=== PATIENT | female | born 1965 | race Caucasian/White ===

== ENCOUNTER 2021-09-19 15:05 | Inpatient (IN) | payer BC ==
[~2021-09-19] VITALS: Ht 162.6 cm; Wt 62.0 kg
--- NOTE | 2021-09-19 15:09 | PHYS DOC ---
Past Medical History Past Medical History: Hypertension Past Surgical History: Tubal ligation Smoking Status: Current Every Day Smoker Alcohol Use: Heavy Drug Use: Amphetamine, Methamphetamine General Adult EDM: Chief Complaint: ABDOMINAL PAIN HPI: HPI: Patient is a 56 year old female presents with 5-week history of progressively worsening generalized upper abdominal pain and right upper quadrant pain. She has noticed her skin has been itchy for the past several weeks. She reports multiple episodes of nausea and vomiting. Pain is frequently postprandial, t ollie she has not been eating or drinking very much. She denies constipation or diarrhea. She has noticed that her urine is dark. The patient is quite jaundiced, demonstrate scleral icterus, she reports that she had not really noticed this. She does report that the pain radiates through to her back. She denies fevers or chills. She does report that the pain occasionally radiates up into her chest. She denies dyspnea or cough. Denies hemoptysis. She reportedly was seen by nurse practitioner at an outpatient clinic earlier this week, she had outpatient labs done, she does not know the results of these. She has not been referred for any imaging studies. Patient has a history of frequent alcohol consumption, though she has not had alcohol in over a week. She denies history of withdrawal alcohol withdrawal seizures. She also admits to ingesting methamphetamine rocks. She last used yesterday. Review of Systems: Review of Systems: As per HPI Heart Score: C/O Chest Pain: Yes HEART Score for Chest Pain: HEART Score for Chest Pain Response (Comments) Value History Slighlty/Non-Suspicious 0 ECG Nonspecific Repolarizatio 1 Age >45 - < 65 1 Risk Factors 1 or 2 Risk Factors 1 Troponin < Normal Limit 0 Total 3 Risk Factors: Risk Factors: DM, Current or recent (<one month) smoker, HTN, HLP, family history of CAD, obesity. Risk Scores: Score 0 - 3: 2.5% MACE over next 6 weeks - Discharge Home Score 4 - 6: 20.3% MACE over next 6 weeks - Admit for Clinical Observation Score 7 - 10: 72.7% MACE over next 6 weeks - Early Invasive Strategies Physical Exam: PE: Constitutional: She appears uncomfortable, anxious, very disheveled, appears much older than stated age, writhing around the ED gurney, intermittently yelling, does appear to be manifesting sympathomimetic intoxication. Nontoxic. She does appear to be at least moderately ill-appearing. HENT: Normocephalic, atraumatic, oropharynx is patent and clear, mucous membranes are tacky. Eyes: Scleral icterus is noted. Mild conjunctival pallor. Neck: Trachea is midline. No meningismus. No JVD Cardiovascular: Tachycardic, regular, +2 radial and +2 posterior tibial pulses bilaterally. No edema. Lungs & Thorax: Clear to auscultation bilateral without rales, rhonchi or wheezes. Abdomen: Abdomen is obese, soft, exquisitely tender to palpation the right upper quadrant and epigastrium, positive Brambila's. Voluntary guarding in the epigastric and periumbilical area. No rigidity. No lower abdominal tenderness. No palpable pulsatile mass. No CVA tenderness. No flank abdominal ecchymoses. Skin: Warm, dry, unkempt. Diffuse jaundice noted. Back: No tenderness, no CVA tenderness. [] Extremities: No tenderness, no cyanosis, no clubbing, ROM intact, no limb deformity, no calf tenderness Neurologic: Alert and oriented X 3, normal motor function, normal sensory function, no focal deficits noted. [] Psychologic: Anxious, frenetic, histrionic, relatively agitated, appears intoxicated, easily redirectable, she is pleasant EKG: EKG: EKG is interpreted at 1521 Rhythm is sinus tachycardia Rate is 121 bpm Lynx is normal No STEMI Radiology/Procedures: Radiology/Procedures: IMAGING REPORT Signed PATIENT: CALISTA PINTO ACCOUNT: [id number] : 1965 LOCATION: ER AGE: 56 SEX: F EXAM STATUS: REG ER ORD. PHYSICIAN: LILIAN LOGAN DO REASON: RUQ abd pain PROCEDURE: ABDOMEN LTD EXAM: ULTRASOUND ABDOMEN LIMITED CLINICAL HISTORY: Right upper quadrant abdominal pain COMPARISON: None available. TECHNIQUE: Limited ultrasound examination of the right upper quadrant of the abdomen was performed. FINDINGS: The liver length measures 17.7 cm. There is prominent appearing intrahepatic bile duct and extra hepatic bile ducts. The common bile duct measures 2 cm in transverse dimension. There is echogenicity identified within the gallbladder likely sludge or gallstones. Ultrasonographic evidence of Brambila's sign identified. The right kidney measures 10.6 x 4.9 x 4.6 cm. The aorta, IVC are not well-visualized due to bowel gas. Minimal prominent pancreatic duct. IMPRESSION: 1. Dilated common bile duct measuring 2 cm. Distal common bile duct obstruction is not excluded. 2. Echogenicity identified within the gallbladder likely gallstones. Examination is positive for ultrasonographic evidence of Brambila's sign. Correlate for cholecystitis. Electronically signed by: Benjamin Daugherty MD (09/19/2021 4:29 PM) [id number] DICTATED and SIGNED BY: BENJAMIN DAUGHERTY MD DATE: 09/19/21 1626 IMAGING REPORT Signed PATIENT: CALISTA PINTO ACCOUNT: [id number] : 1965 LOCATION: ER AGE: 56 SEX: F EXAM STATUS: REG ER ORD. PHYSICIAN: LILIAN LOGAN DO REASON: chest pain PROCEDURE: PORTABLE CHEST 1V Single AP view of the chest. Comparison: None. Indication: Chest pain Findings: The heart is not enlarged. There is no pneumothorax or effusion. No air space or interstitial disease. Impression: 1. No acute cardiopulmonary process. Electronically signed by: Trevin Munoz MD (09/19/2021 3:52 PM) [facility] DICTATED and SIGNED BY: TREVIN MUNOZ MD DATE: 09/19/21 1552 IMAGING REPORT Signed PATIENT: CALISTA PINTO ACCOUNT: [id number] : 1965 LOCATION: ER AGE: 56 SEX: F EXAM STATUS: REG ER ORD. PHYSICIAN: LILIAN LOGAN DO REASON: abd pain, concern for choledocholithiasis PROCEDURE: CT ABD PELV W/ IV CONTRST ONLY Examination: CT of the abdomen pelvis with IV contrast HISTORY: History of choledocholithiasis COMPARISON: None available Technique: Axial CT images of the abdomen pelvis were performed with IV contrast. Coronal and sagittal reformats are performed. Exposure: One or more of the following individualized dose reduction techniques were utilized for this examination: 1. Automated exposure control 2. Adjustment of the mA and/or kV according to patient size 3. Use of iterative reconstruction technique. FINDINGS: Minimal bibasilar lung atelectasis. No evidence of free air identified in the abdomen. Dilated appearing intrahepatic bile ducts. The common bile duct is dilated measuring 2 cm in transverse dimension. There is possible opacity in the distal common bile duct could be choledocholithiasis or mass. The gallbladder is mildly distended. Gallstones identified in the proximal gallbladder. The spleen, adrenals grossly appears unremarkable. The stomach is mildly distended. The small bowel is nondilated. Feces and gas noted in the colon. The evaluation of the colon is limited due to motion artifact. Urinary bladder is mildly distended Bilateral kidneys enhance symmetrically. Moderate degenerative changes lumbar spine. IMPRESSION: 1. Dilated appearing intrahepatic bile ducts and common bile duct with possible opacity in the distal common bile duct could be choledocholithiasis or mass. Recommend ERCP or MRCP. 2. Cholelithiasis. Electronically signed by: Benjamin Daugherty MD (09/19/2021 5:47 PM) [id number] DICTATED and SIGNED BY: BENJAMIN DAUGHETRY MD DATE: 09/19/211739 Course & Med Decision Making: Course & Med Decision Making Pertinent Labs and Imaging studies reviewed. (See chart for details) Patient is given IV fluids, IV Ativan, IV Zofran, IV fentanyl, IV morphine. IV Zosyn empirically given for treatment of cholecystitis. She is kept n.p.o. I have discussed the findings, differential diagnosis and plan of care with the patient. She does appear to be resting slightly more comfortably. I have recommended hospitalization, she required GI consultation, general surgery consultation. She is accepted for admission by Dr. Miller. Braxton Disclaimer: Braxton Disclaimer: This electronic medical record was generated, in whole or in part, using a voice recognition dictation system. Departure Departure Impression: Primary Impression: Choledocholithiasis Additional Impressions: Obstructive jaundice Hyperbilirubinemia Transaminitis Cholecystitis, acute with cholelithiasis Qualified Codes: K80.01 - Calculus of gallbladder with acute cholecystitis with obstruction Disposition: ADMITTED INPATIENT Admitting Physician: [facility] (Dr. iMller) Condition: GUARDED DESMOND,LILIAN Hassan DO Sep 19, 2021 15:09
[2021-09-19] MEDS ORDERED: IV NORMAL SALINE 1000ML BAG 1,000 ML IV ONE ×3 (15:30→18:15)
[2021-09-19] MEDS ORDERED: ONDANSETRON PF 4 MG/2 ML VIAL. IVP ONE (15:30)
[2021-09-19] MEDS ORDERED: fentaNYL PF VIAL 100 MCG/2 ML VIAL IVP ONE (15:30)
[2021-09-19 15:53] LABS: BACTERIA,URINE 0 /HPF (0-FEW)
[2021-09-19 15:54] LABS: AMORPHOUS SEDIMENT,UR PRESENT /HPF
--- NOTE | 2021-09-19 15:55 | RAD ---
Single AP view of the chest. Comparison: None. Indication: Chest pain Findings: The heart is not enlarged. There is no pneumothorax or effusion. No air space or interstitial diseas e. Impression: 1. No acute cardiopulmonary process. Electronically signed by: Trevin Munoz MD (09/19/2021 3:52 PM) [facility]
[2021-09-19 15:59] LABS: BASO % 0 % (0-3); EOS % 0 % (0-3); HEMATOCRIT 34.9 % (36.0-47.0); HEMOGLOBIN 11.8 g/dL (12.0-15.5); LYMPH # 0.7 x10^3/uL (1.0-4.8); LYMPH % 6 % (24-48); MEAN CORPUSCULAR HEMOGLOBIN 28 pg (25-35); MEAN CORPUSCULAR HGB CONC 34 g/dL (31-37); MEAN CORPUSCULAR VOLUME 82 fL (79-100); MONO # 0.2 x10^3/uL (0.0-1.1); MONO % 2 % (0-9); NEUT # 9.7 x10^3/uL (1.8-7.7); NEUT % 91 % (31-73); PLATELET COUNT 350 x10^3/uL (140-400); RED BLOOD COUNT 4.28 x10^6/uL (3.50-5.40); RED CELL DISTRIBUTION WIDTH 14.3 % (11.5-14.5); WHITE BLOOD COUNT 10.6 x10^3/uL (4.0-11.0)
[2021-09-19 16:10] LABS: PROTHROMBIN TIME PATIENT 13.1 SEC (11.7-14.0)
[2021-09-19 16:18] LABS: BARBITURATES NEG (NEG); BENZODIAZEPINES NEG (NEG); CANNABINOIDS NEG (NEG); COCAINE NEG (NEG); METHADONE NEG (NEG); OPIATES NEG (NEG); PHENCYCLIDINE NEG (NEG)
[2021-09-19 16:21] LABS: ALBUMIN 3.1 g/dL (3.4-5.0); ALBUMIN/GLOBULIN RATIO 0.9 (1.0-1.7); CALCIUM 9.5 mg/dL (8.5-10.1); CREATININE 0.5 mg/dL (0.6-1.0); GFR 127.6; MAGNESIUM 1.4 mg/dL (1.8-2.4); TOTAL PROTEIN 6.7 g/dL (6.4-8.2)
[2021-09-19 16:22] LABS: AMPHETAMINE/METHAMPHETAMINE POS (NEG)
[2021-09-19 16:27] LABS: POTASSIUM 2.4 mmol/L (3.5-5.1)
--- NOTE | 2021-09-19 16:32 | RAD ---
EXAM: ULTRASOUND ABDOMEN LIMITED CLINICAL HISTORY: Right upper quadrant abdominal pain COMPARISON: None available. TECHNIQUE: Limited ultrasound examination of the right upper quadrant of the abdomen was performed. FINDINGS: The liver length measures 17.7 cm. There is prominent appearing intrahepatic bile duct and extra hepa tic bile ducts. The common bile duct measures 2 cm in transverse dimension. There is echogenicity brooke ntified within the gallbladder likely sludge or gallstones. Ultrasonographic evidence of Brambila's sig n identified. The right kidney measures 10.6 x 4.9 x 4.6 cm. The aorta, IVC are not well-visualized d ue to bowel gas. Minimal prominent pancreatic duct. IMPRESSION: 1. Dilated common bile duct measuring 2 cm. Distal common bile duct obstruction is not excluded. 2. Echogenicity identified within the gallbladder likely gallstones. Examination is positive for ultr asonographic evidence of Brambila's sign. Correlate for cholecystitis. Electronically signed by: Benjamin Daugherty MD (09/19/2021 4:29 PM) [id number]
[2021-09-19] MEDS ORDERED: IOHEXOL 300 MG/ML 100ML VIAL. IV ONE (17:15)
[2021-09-19] MEDS ORDERED: PIPERACILLIN/TAZOBACTAM 3.375 GM in IV NORMAL SALINE 50ML 50 ML IV ONE (17:15)
[2021-09-19] MEDS ORDERED: POTASSIUM CHLORIDE 20 MEQ TABLET.ER. PO ONE (17:15)
[2021-09-19] MEDS ORDERED: MORPHINE SULFATE 4 MG/ML INJ. IVP ONE (17:15)
[2021-09-19] MEDS ORDERED: POTASSIUM CHLORIDE 20MEQ 100 ML IV ONE (17:30)
--- NOTE | 2021-09-19 17:49 | RAD ---
Examination: CT of the abdomen pelvis with IV contrast HISTORY: History of choledocholithiasis COMPARISON: None available Technique: Axial CT images of the abdomen pelvis were performed with IV contrast. Coronal and sagitta l reformats are performed. Exposure: One or more of the following individualized dose reduction techniques were utilized for thi s examination: 1. Automated exposure control 2. Adjustment of the mA and/or kV according to patient size 3. Use of iterative reconstruction technique. FINDINGS: Minimal bibasilar lung atelectasis. No evidence of free air identified in the abdomen. Dilated appear ing intrahepatic bile ducts. The common bile duct is dilated measuring 2 cm in transverse dimension. There is possible opacity in the distal common bile duct could be choledocholithiasis or mass. The ga llbladder is mildly distended. Gallstones identified in the proximal gallbladder. The spleen, adrenals grossly appears unremarkable. The stomach is mildly distended. The small bowel i s nondilated. Feces and gas noted in the colon. The evaluation of the colon is limited due to motion artifact. Urinary bladder is mildly distended Bilateral kidneys enhance symmetrically. Moderate degenerative changes lumbar spine. IMPRESSION: 1. Dilated appearing intrahepatic bile ducts and common bile duct with possible opacity in the dista l common bile duct could be choledocholithiasis or mass. Recommend ERCP or MRCP. 2. Cholelithiasis. Electronically signed by: Benjamin Daugherty MD (09/19/2021 5:47 PM) [id number]
[2021-09-19] MEDS: MULTIVIT INFUSN,ADULT 4,VIT K 10 ML, THIAMINE INJ 100 MG, FOLIC ACID INJ 1 MG in IV NOR... IV SCH (18:00)
[2021-09-19 19:00] VITALS: BP 83/61
--- NOTE | 2021-09-19 19:00 | NUR ---
The patient, CALISTA PINTO, 56 y/o, F admitted by VINCE BANUELOS MD, was given written information regarding hospital policies, unit procedures and contact persons. COMPLETED HISTORY AND ASSESMENT. PT COULDNT KEEP FOCUSED. FLAINING ALL OVER THE BED ARMS AND LEGS. ATTEMPTING TO GET POYASSIUM IV COMPLETE. CHANGED HER IV BY MATT #[id number] . PT CONTINUES TO FRAIL AROUND, HER PATCHES COME OFF, LEADS IV COME OFF. AND IV IN THE AC BEEPS CONTINUES TO BEEP. Valuables were checked and AND DOCUMENTED IN THE EMR. SHE CONTIUES TO C/O PAIN IN HER UPPER ABDOMEN AND SHE IS ALL OVER THE BED. LCRN.
[2021-09-19] MEDS ORDERED: OMEP40CA7 PO (20:10)
[2021-09-19] MEDS ORDERED: ACET500T68 PO (20:11)
[2021-09-19] MEDS ORDERED: IBUP-1060 PO (20:12)
[2021-09-19] MEDS ORDERED: MORPHINE SULFATE 2 MG/ML INJ. IV PRN ×2 (20:30)
[2021-09-19] MEDS ORDERED: ACETAMINOPHEN 325 MG TABLET. PO PRN (20:30)
[2021-09-19] MEDS ORDERED: ELECTROLYTE (NON-ICU) PROTOCOL. MC PRN (20:30)
[2021-09-19] MEDS ORDERED: CALCIUM CARBONATE 500 MG TAB.CHEW PO PRN (20:30)
[2021-09-19] MEDS ORDERED: ONDANSETRON PF 4 MG/2 ML VIAL. IVP PRN (20:30)
[2021-09-19] MEDS: SENNOSIDES/DOCUSATE 8.6/50MG TABLET. PO SCH (21:00)
[2021-09-19 23:00] VITALS: BP 117/52
[2021-09-19] MEDS: HEPARIN for SUB-Q USE 5,000 UNIT/ML VIAL. SQ SCH (23:23)
--- NOTE | 2021-09-19 23:29 | RAD ---
XR CHEST 1V 09/19/2021 11:14 PM INDICATION: Low oxygen saturation COMPARISON: 09/19/2021 TECHNIQUE: Portable frontal view of the chest is provided. FINDINGS: The cardiomediastinal silhouette is within normal limits. Mild interstitial changes appear progressed . There are no significant pleural effusions. There is no pulmonary vascular congestion. No pneumothora x. No suspicious osseous abnormality. IMPRESSION: Mild interstitial changes appear progressed as may be seen with worsening interstitial pneumonitis. L imited evaluation of the left costophrenic angle. Electronically signed by: Alisha Boston MD (09/19/2021 11:27 PM) [facility]
[2021-09-20] VITALS (31 sets, daily range): BP systolic 68–194; BP diastolic 41–92
[2021-09-20 00:26] LABS: BASE EXCESS ABG -12 mmol/L (-3-3); HCO3 ABG 20 mmol/L (21-28); PO2 ABG 128 mmHg (75-108); SAT O2 ABG 96 % (92-99)
[2021-09-20 00:32] LABS: PCO2 ABG 78 mmHg (35-46)
[2021-09-20 00:33] LABS: FIO2 ABG 50 (BIPAP)
--- NOTE | 2021-09-20 01:00 | NUR ---
s/p code- transfer from [address] [place] [address]. resp distress- patient intubated upon arrival to ICU. per [address] [place] [address] nurse- she will complete admission and she spoke with family
--- NOTE | 2021-09-20 01:00 | NUR ---
TRANSFERED PT TO ICU AFTER CALLING DR ARDON HER ABG.S. WERE NOT GOOD, SEE LABS. DR ARDON WAS GIVING ORDERS FOR THE BIPAP AND SETTINGS. PT WAS BEING PLACED ON BIPAP WAS ATTEMPTING TO PULL AND SWING KEPT PULLING OFF ONE OF HER MITTS AND THE HOSE ON THE BIPAP. PT C/O HER SKIN ITCHING. TOOK SEVERAL STAFF MEMBERS TO HOLD HER DOWN. 2017 MORPHINE IV WAS GIVEN FOR HER PAIN IN HER STOMACH. THEN GAVE PO ATIVAN PRIOR TO BIPAP FOR HER BEING SO OUT OF CONTROL. HER HEART RATE STAARTED TO GO HIGHER 120-160"S THEN . HER BREATHING BEGAN TO LOOK EXERTED. USING WHOLE CHEST TO BREATHE IN AND ABD MUSCLES TO BREATHE OUT. WHILE RN WAS CALLING HER DR TO TRANSFER TO ICU STARTING TO COME OUT OF THE ROOM W THE BED WHEN SHE WENT ASYSTOLE AND BREATHING STOPPED. RT MIGDALIA BEGAN BAGGING HER AND NOT EVEN A ROUND OF COMPRESSIONS DONE WHEN SHE REGAINED HER PULSE. I WAS ON THE PHONE TALKING TO HER SOLEDAD BRINGING HIM UP TO DATE WHEN THE CODE WAS CALLED ON PT. TOLD THE SHE WAS GETTING WORSE AND IT IS OK TO COME TO THE HOSPITAL. ONCE SHE HAD A HR THEN SHE WAS TRANSFERED TO ROOM 109. AND DR THERE TO INTUBATE HER. LCRN
[2021-09-20] MEDS ORDERED: ELECTROLYTE (ICU) PROTOCOL. MC PRN (01:15)
[2021-09-20] MEDS ORDERED: SUCCINYLCHOLINE 200 MG/10 ML VIAL. ONE (01:20)
[2021-09-20] MEDS ORDERED: ETOMIDATE 20 MG/10 ML VIAL. IV ONE (01:20)
[2021-09-20] MEDS ORDERED: VECURONIUM BOLUS 10 MG VIAL. IV PRN (01:30)
[2021-09-20] MEDS: PROPOFOL 100 ML IV PRN (01:42)
[2021-09-20 02:21] LABS: BASE EXCESS ABG -9 mmol/L (-3-3); HCO3 ABG 17 mmol/L (21-28); PCO2 ABG 37 mmHg (35-46); PO2 ABG 84 mmHg (75-108); SAT O2 ABG 95 % (92-99)
[2021-09-20 02:27] LABS: HEMATOCRIT 36.9 % (36.0-47.0); HEMOGLOBIN 11.6 g/dL (12.0-15.5); RED BLOOD COUNT 4.21 x10^6/uL (3.50-5.40); RED CELL DISTRIBUTION WIDTH 15.5 % (11.5-14.5); WHITE BLOOD COUNT 25.3 x10^3/uL (4.0-11.0)
--- NOTE | 2021-09-20 02:30 | RAD ---
EXAMINATION: XR CHEST 1V CLINICAL HISTORY: Post intubation; et/ng placement. TECHNIQUE: XR CHEST 1V COMPARISON: 09/19/2021 FINDINGS/ IMPRESSION: Interval intubation with the endotracheal tube terminating approximately 3.6 cm above the barb and placement of enteric tube extending into the stomach with tip beyond the limit of the image. Improved aeration of the bilateral lungs with mild residual patchy airspace disease in the right lowe r lung zone. No evidence of pleural effusion or pneumothorax. Stable heart size. Electronically signed by: Richard Bonilla DO (09/20/2021 2:28 AM) [facility]
[2021-09-20 03:22] LABS: FIO2 ABG 55
[2021-09-20] MEDS ORDERED: FLU VACC QUAD 21-22 (6MOS+) PF 0.5 ML SYRINGE. VAX IM ONE (03:45)
[2021-09-20] MEDS: HEPARIN for SUB-Q USE 5,000 UNIT/ML VIAL. SQ SCH ×3 (05:43→21:58)
[2021-09-20 07:40] LABS: BASE EXCESS ABG -7 mmol/L (-3-3); HCO3 ABG 18 mmol/L (21-28); PCO2 ABG 34 mmHg (35-46); PO2 ABG 196 mmHg (75-108); SAT O2 ABG 99 % (92-99)
[2021-09-20] MEDS: NOREPINEPHRINE VIAL 8 MG in IV DEXTROSE 5% 250 ML IV PRN ×2 (07:40→19:42)
[2021-09-20] MEDS: MIDAZOLAM 100mg/100ml NS BAG 100 ML IV PRN ×2 (07:41→18:01)
[2021-09-20] MEDS ORDERED: PIP/TAZO PER PHARMACY MC PRN (08:30)
[2021-09-20] MEDS: SENNOSIDES/DOCUSATE 8.6/50MG TABLET. PO SCH ×2 (09:00→20:48)
--- NOTE | 2021-09-20 09:04 | PDOC2 ---
GI CONSULT Date of Service: DATE: 09/20/21 TIME: 08:51 Reason For Consult: dilated CBD, dilated intrahepatic ducts HPI: HPI: 56 y/o female admitted through ER. D/w nurse and reviewed other notes - pt reported upper abd pain radiating to back w/ n/v. S/p resp code (brief asystole mentioned), currently intubated and sedated in ICU on pressor. Impressive labs include WBC 25 (normal yesterday), bili 8, AST 138, ALT 157, Alk Phos 572, K 2.4, tox screen +amphetamines. On imaging: dilated CBD and intrahepatic ducts, possible opacity in distal CBD, suspected gallstones/sludge. Summary list includes omeprazole, Tylenol, ibuprofen. Hospitalist present, just had brief run of v tach, plans to start antibiotics, ask for cardiology opinion. PMH: PMH: per chart: HTN, OA tubal ligation, jaw surgery FH: Family History: Other (unable to obtain) Social History: ALCOHOL: other (per chart: rum every other day) Drugs: Crystal meth (tox screen +ampethamines) ROS: unable to obtain Vitals: Vitals: Vital Signs Date Time Temp Pulse Resp B/P (MAP) Pulse Ox O2 Delivery O2 Flow Rate FiO2 09/20/21 08:36 97 Ventilator 09/20/21 08:19 23 09/20/21 08:00 100 68/41 09/20/21 04:00 98.0 98.0 09/20/21 01:00 15.0 Labs: Labs: Laboratory Tests Test 09/19/21 15:16 09/19/21 15:43 09/19/21 23:44 09/20/21 00:55 Urine Collection Type Void Urine Color (Auto) Dark yellow Urine Turbidity Clear Urine pH (Auto) 6.0 (<5.0-8.0) Urine Specific [place] 1.028 (1.000-1.030) Urine Protein (Auto) 30 mg/dL (Negative) Urine Glucose (Auto)(UA) Negative mg/dL (Negative) Urine Ketones (Auto) 10 mg/dL (Negative) Urine Blood (Auto) Negative (Negative) Urine Nitrite Negative (Negative) Urine Bilirubin (Auto) Moderate (Negative) Urine Urobilinogen (Auto) 6 mg/dL (Normal) Urine Leukocyte Esterase (Auto) Negative (Negative) Urine RBC 3-5 /HPF (0-2) Urine WBC 1-4 /HPF (0-4) Urine Squamous Epithelial Cells Mod /LPF Urine Amorphous Sediment Present /HPF Urine Bacteria 0 /HPF (0-FEW) Urine Mucus Slight /LPF Urine Opiates Screen Neg (NEG) Urine Methadone Screen Neg (NEG) Urine Barbiturates Neg (NEG) Urine Phencyclidine Screen Neg (NEG) Urine Amphetamine/Methamphetamine Pos (NEG) Urine Benzodiazepines Screen Neg (NEG) Urine Cocaine Screen Neg (NEG) Urine Cannabinoids Screen Neg (NEG) Urine Ethyl Alcohol Neg (NEG) White Blood Count 10.6 x10^3/uL (4.0-11.0) 25.3 x10^3/uL (4.0-11.0) Red Blood Count 4.28 x10^6/uL (3.50-5.40) 4.21 x10^6/uL (3.50-5.40) Hemoglobin 11.8 g/dL (12.0-15.5) 11.6 g/dL (12.0-15.5) Hematocrit 34.9 % (36.0-47.0) 36.9 % (36.0-47.0) Mean Corpuscular Volume 82 fL (79-100) 88 fL (79-100) Mean Corpuscular Hemoglobin 28 pg (25-35) 28 pg (25-35) Mean Corpuscular Hemoglobin Concent 34 g/dL (31-37) 31 g/dL (31-37) Red Cell Distribution Width 14.3 % (11.5-14.5) 15.5 % (11.5-14.5) Platelet Count 350 x10^3/uL (140-400) 451 x10^3/uL (140-400) Neutrophils (%) (Auto) 91 % (31-73) Lymphocytes (%) (Auto) 6 % (24-48) Monocytes (%) (Auto) 2 % (0-9) Eosinophils (%) (Auto) 0 % (0-3) Basophils (%) (Auto) 0 % (0-3) Neutrophils # (Auto) 9.7 x10^3/uL (1.8-7.7) Lymphocytes # (Auto) 0.7 x10^3/uL (1.0-4.8) Monocytes # (Auto) 0.2 x10^3/uL (0.0-1.1) Eosinophils # (Auto) 0.0 x10^3/uL (0.0-0.7) Basophils # (Auto) 0.0 x10^3/uL (0.0-0.2) Prothrombin Time 13.1 SEC (11.7-14.0) Prothromb Time International Ratio 1.0 (0.8-1.1) Activated Partial Thromboplast Time 25 SEC (24-38) Sodium Level 139 mmol/L (136-145) Potassium Level 2.4 mmol/L (3.5-5.1) Chloride Level 103 mmol/L (98-107) Carbon Dioxide Level 20 mmol/L (21-32) Anion Gap 16 (6-14) Blood Urea Nitrogen 27 mg/dL (7-20) Creatinine 0.5 mg/dL (0.6-1.0) Estimated GFR (Cockcroft-Gault) 127.6 BUN/Creatinine Ratio 54 (6-20) Glucose Level 100 mg/dL (70-99) Calcium Level 9.5 mg/dL (8.5-10.1) Magnesium Level 1.4 mg/dL (1.8-2.4) Total Bilirubin 8.0 mg/dL (0.2-1.0) Aspartate Amino Transf (AST/SGOT) 138 U/L (15-37) Alanine Aminotransferase (ALT/SGPT) 157 U/L (14-59) Alkaline Phosphatase 572 U/L (46-116) Creatine Kinase 88 U/L (26-192) Troponin I High Sensitivity 16 ng/L (4-50) Total Protein 6.7 g/dL (6.4-8.2) Albumin 3.1 g/dL (3.4-5.0) Albumin/Globulin Ratio 0.9 (1.0-1.7) Lipase 142 U/L (73-393) Ethyl Alcohol Level < 10 mg/dL (0-10) O2 Saturation 96 % (92-99) Arterial Blood pH 7.03 (7.35-7.45) Arterial Blood pCO2 at Patient Temp 78 mmHg (35-46) Arterial Blood pO2 at Patient Temp 128 mmHg (75-108) Arterial Blood HCO3 20 mmol/L (21-28) Arterial Blood Base Excess -12 mmol/L (-3-3) FiO2 50 (bipap) Test 09/20/21 02:06 09/20/21 07:39 O2 Saturation 95 % (92-99) 99 % (92-99) Arterial Blood pH 7.28 (7.35-7.45) 7.35 (7.35-7.45) Arterial Blood pCO2 at Patient Temp 37 mmHg (35-46) 34 mmHg (35-46) Arterial Blood pO2 at Patient Temp 84 mmHg (75-108) 196 mmHg (75-108) Arterial Blood HCO3 17 mmol/L (21-28) 18 mmol/L (21-28) Arterial Blood Base Excess -9 mmol/L (-3-3) -7 mmol/L (-3-3) FiO2 55 55% vent Allergies: Coded Allergies: No Known Drug Allergies (Unverified , 09/19/21) Medications: Current Medications Medications (Trade) Dose Ordered Sig/Mitch Route PRN Reason Start Time Stop Time Status Last Admin Dose Admin Sodium Chloride 1,000 ml @ 1,000 mls/hr 1X ONCE IV 09/19/21 15:30 09/19/21 16:29 DC 09/19/21 15:49 Lorazepam (Ativan Inj) 1 mg 1X ONCE IVP 09/19/21 15:30 09/19/21 15:31 DC 09/19/21 15:48 Ondansetron HCl (Zofran) 4 mg 1X ONCE IVP 09/19/21 15:30 09/19/21 15:31 DC 09/19/21 15:47 Fentanyl Citrate (Fentanyl 2ml Vial) 50 mcg 1X ONCE IVP 09/19/21 15:30 09/19/21 15:31 DC 09/19/21 15:48 Potassium Chloride (Klor-Con) 40 meq 1X ONCE PO 09/19/21 17:15 09/19/21 17:16 DC 09/19/21 17:17 Iohexol (Omnipaque 300 Mg/ml) 75 ml 1X ONCE IV 09/19/21 17:15 09/19/21 17:16 DC 09/19/21 17:24 Piperacillin Sod/ Tazobactam Sod 3.375 gm/Sodium Chloride 50 ml @ 100 mls/hr 1X ONCE IV 09/19/21 17:15 09/19/21 17:44 DC 09/19/21 17:38 Morphine Sulfate (Morphine Sulfate) 4 mg 1X ONCE IVP 09/19/21 17:15 09/19/21 17:16 DC 09/19/21 17:37 Potassium Chloride/Water 100 ml @ 50 mls/hr 1X ONCE IV 09/19/21 17:30 09/19/21 19:29 DC 09/19/21 18:45 Sodium Chloride 1,000 ml @ 1,000 mls/hr 1X ONCE IV 09/19/21 17:45 09/19/21 18:44 DC 09/19/21 18:16 Multivitamins 10 ml/Thiamine HCl 100 mg/Folic Acid 1 mg/Sodium Chloride 1,011.2 ml @ 100 mls/ hr DAILY IV 09/19/21 18:00 09/23/21 19:07 09/19/21 18:00 Lorazepam (Ativan) 4 mg PRN Q1HR PRN PO For CIWA 8-14 09/19/21 17:45 09/19/21 20:17 Sodium Chloride 1,000 ml @ 1,000 mls/hr 1X ONCE IV 09/19/21 18:15 09/19/21 19:14 DC 09/19/21 18:15 Morphine Sulfate (Morphine Sulfate) 2 mg PRN Q1HR PRN IV PAIN 09/19/21 20:30 09/19/21 20:15 Heparin Sodium (Porcine) (Heparin Sodium) 5,000 unit Q8HRS SQ 09/19/21 22:00 09/20/21 05:43 Fentanyl Citrate 30 ml @ 2.5 mls/hr CONT PRN IV SEE PROTOCOL 09/20/21 01:30 09/20/21 07:36 Propofol 100 ml @ 1.95 mls/hr CONT PRN IV PER PROTOCOL 09/20/21 01:30 09/20/21 01:42 Midazolam HCl 100 ml @ 1 mls/hr CONT PRN IV SEE PROTOCOL 09/20/21 07:30 09/20/21 07:41 Norepinephrine Bitartrate 8 mg/ Dextrose 258 ml @ 12.578 mls/ hr CONT PRN IV PER PROTOCOL 09/20/21 07:30 09/20/21 07:40 Imaging: Imaging: CXR Impression: 1. No acute cardiopulmonary process. RUQ US FINDINGS: The liver length measures 17.7 cm. There is prominent appearing intrahepatic bile duct and extra hepatic bile ducts. The common bile duct measures 2 cm in transverse dimension. There is echogenicity identified within the gallbladder likely sludge or gallstones. Ultrasonographic evidence of Brambila's sign identified. The right kidney measures 10.6 x 4.9 x 4.6 cm. The aorta, IVC are not well-visualized due to bowel gas. Minimal prominent pancreatic duct. IMPRESSION: 1. Dilated common bile duct measuring 2 cm. Distal common bile duct obstruction is not excluded. 2. Echogenicity identified within the gallbladder likely gallstones. Examination is positive for ultrasonographic evidence of Brambila's sign. Correlate for cholecystitis. CT A/P FINDINGS: Minimal bibasilar lung atelectasis. No evidence of free air identified in the abdomen. Dilated appearing intrahepatic bile ducts. The common bile duct is dilated measuring 2 cm in transverse dimension. There is possible opacity in the distal common bile duct could be choledocholithiasis or mass. The gallbladder is mildly distended. Gallstones identified in the proximal gallbladder. The spleen, adrenals grossly appears unremarkable. The stomach is mildly distended. The small bowel is nondilated. Feces and gas noted in the colon. The evaluation of the colon is limited due to motion artifact. Urinary bladder is mildly distended Bilateral kidneys enhance symmetrically. Moderate degenerative changes lumbar spine. IMPRESSION: 1. Dilated appearing intrahepatic bile ducts and common bile duct with possible opacity in the distal common bile duct could be choledocholithiasis or mass. Recommend ERCP or MRCP. 2. Cholelithiasis. CXR IMPRESSION: Mild interstitial changes appear progressed as may be seen with worsening interstitial pneumonitis. Limited evaluation of the left costophrenic angle. CXR IMPRESSION: Interval intubation with the endotracheal tube terminating approximately 3.6 cm above the barb and placement of enteric tube extending into the stomach with tip beyond the limit of the image. Improved aeration of the bilateral lungs with mild residual patchy airspace disease in the right lower lung zone. No evidence of pleural effusion or pn eumothorax. Stable heart size. PE: GEN: intubated HEENT: Atraumatic LUNGS: clear/vent HEART: tachycardic ABD: quiet, soft, OG bilious EXTREMITY: No edema SKIN: +jaundice NEURO/PSYCH: sedated A/P: A/P: Abd pain, n/v S/p code/resp failure Leukocytosis, hypokalemia, elevated LFTs Abnormal imaging: dilated CBD (2cm), dilated intrahepatic ducts, possible stone/mass in distal CBD, cholelithiasis Some alcohol history, +meth -- Obstructive jaundice, concern for choledocholithiasis. Currently unstable in ICU. Follow labs, continue support. May need to consider MRCP/ERCP, consider surgery opinion. MILTON WEI Sep 20, 2021 09:04
--- NOTE | 2021-09-20 09:52 | PDOC1 ---
History and Physical Date of Admission Date of Admission DATE: 09/20/21 TIME: 09:25 Identification/Chief Complaint Chief Complaint Abdominal pain Source Source: Chart review History of Present Illness History of Present Illness Patient is a 56-year-old female with past medical history alcohol abuse, who presents to the ED with complaints of worsening right upper quadrant abdominal pain for the past few weeks. Pain is aggravated by eating. Also reports associated nausea, vomiting, and dark urine. Upon arrival in the ED she was noted to be tachycardic, febrile, jaundiced, with scleral icterus. Labs admission showed WBC 10.5, hemoglobin 11.8, hematocrit 34.9, MCV 82, potassium 2.4, BUN 27, creatinine 0.5, magnesium 1.4, AST 138, ALT 137, alkaline phosphatase 532. Urine toxicology was positive for methamphetamine. CT abdomen on admission showed dilated appearing intrahepatic bile ducts and common bile duct with possible opacity in the distal common bile duct which could be choledocholithiasis or mass. Abdominal ultrasound showed dilated common bile duct measuring 2 cm. and echogenicity identified within the gallbladder likely gallstones. Examination was also positive for ultrasonographic evidence of Brambila's sign. At the time of my evaluation patient to be taken to the ICU due worsening sepsis placed on vasopressors and Precedex. Much history is obtained through chart review at this time. She been admitted GI consult for further medical management. Past Medical History Past Medical History Alcohol abuse, methamphetamine abuse Cardiovascular: HTN Past Surgical History Past Surgical History: Tubal Ligation Family History Family History: Family History Unknown Social History Smoke: 1 pack per day ALCOHOL: heavy Drugs: Crystal meth (tox screen +ampethamines) Current Problem List Problem List Problems Medical Problems: (1) Cholecystitis, acute with cholelithiasis Status: Acute (2) Choledocholithiasis Status: Acute (3) Hyperbilirubinemia Status: Acute (4) Obstructive jaundice Status: Acute (5) Transaminitis Status: Acute Current Medications Current Medications Current Medications Sodium Chloride 1,000 ml @ 1,000 mls/hr 1X ONCE IV Last administered on 09/19/21at 15:49; Start 09/19/21 at 15:30; Stop 09/19/21 at 16:29; Status DC Lorazepam (Ativan Inj) 1 mg 1X ONCE IVP Last administered on 09/19/21at 15:48; Start 09/19/21 at 15:30; Stop 3/31/22 at 15:31; Status DC Ondansetron HCl (Zofran) 4 mg 1X ONCE IVP Last administered on 09/19/21at 15:47; Start 09/19/21 at 15:30; Stop 09/19/21 at 15:31; Status DC Fentanyl Citrate (Fentanyl 2ml Vial) 50 mcg 1X ONCE IVP Last administered on 09/19/21at 15:48; Start 09/19/21 at 15:30; Stop 09/19/21 at 15:31; Status DC Potassium Chloride (Klor-Con) 40 meq 1X ONCE PO Last administered on 09/19/21at 17:17; Start 09/19/21 at 17:15; Stop 09/19/21 at 17:16; Status DC Iohexol (Omnipaque 300 Mg/ml) 75 ml 1X ONCE IV Last administered on 09/19/21at 17:24; Start 09/19/21 at 17:15; Stop 09/19/21 at 17:16; Status DC Piperacillin Sod/ Tazobactam Sod 3.375 gm/Sodium Chloride 50 ml @ 100 mls/hr 1X ONCE IV Last administered on 09/19/21at 17:38; Start 09/19/21 at 17:15; Stop 09/19/21 at 17:44; Status DC Morphine Sulfate (Morphine Sulfate) 4 mg 1X ONCE IVP Last administered on 09/19/21at 17:37; Start 09/19/21 at 17:15; Stop 09/19/21 at 17:16; Status DC Potassium Chloride/Water 100 ml @ 50 mls/hr 1X ONCE IV Last administered on 09/19/21at 18:45; Start 09/19/21 at 17:30; Stop 09/19/21 at 19:29; Status DC Sodium Chloride 1,000 ml @ 1,000 mls/hr 1X ONCE IV Last administered on 09/19/21at 18:16; Start 09/19/21 at 17:45; Stop 09/19/21 at 18:44; Status DC Multivitamins 10 ml/Thiamine HCl 100 mg/Folic Acid 1 mg/Sodium Chloride 1,011.2 ml @ 100 mls/ hr DAILY IV Last administered on 09/19/21at 18:00; Start 09/19/21 at 18:00; Stop 09/23/21 at 19:07 Multivitamins (Thera M Plus) 1 tab DAILY PO ; Start 09/24/21 at 09:00 Folic Acid (Folic Acid) 1 mg DAILY PO ; Start 09/24/21 at 09:00 Thiamine Mononitrate (Vitamin B-1) 100 mg DAILY PO ; Start 09/24/21 at 09:00 Lorazepam (Ativan) 4 mg PRN Q1HR PRN PO For CIWA 8-14 Last administered on 09/19/21at 20:17; Start 09/19/21 at 17:45 Lorazepam (Ativan) 8 mg PRN Q1HR PRN PO For CIWA 15 or greater; Start 09/19/21 at 17:45 Sodium Chloride 1,000 ml @ 1,000 mls/hr 1X ONCE IV Last administered on 09/19/21at 18:15; Start 09/19/21 at 18:15; Stop 09/19/21 at 19:14; Status DC Ondansetron HCl (Zofran) 4 mg PRN Q6HRS PRN IVP NAUSEA/VOMITING; Start 09/19/21 at 20:30 Calcium Carbonate/ Glycine (Tums) 500 mg PRN Q3HRS PRN PO UPSET STOMACH; Start 09/19/21 at 20:30 Info (Non-Icu Electrolyte Protocol) 1 ea PRN DAILY PRN MC SEE COMMENTS; Start 09/19/21 at 20:30; Stop 09/20/21 at 01:12; Status DC Morphine Sulfate (Morphine Sulfate) 1 mg PRN Q1HR PRN IV PAIN; Start 09/19/21 at 20:30 Morphine Sulfate (Morphine Sulfate) 2 mg PRN Q1HR PRN IV PAIN Last administered on 09/19/21at 20:15; Start 09/19/21 at 20:30 Acetaminophen (Tylenol) 650 mg PRN Q6HRS PRN PO Headaches, Temp > 101.5F; Start 09/19/21 at 20:30 Senna/Docusate Sodium (Senna Plus) 1 tab BID PO ; Start 09/19/21 at 21:00 Heparin Sodium (Porcine) (Heparin Sodium) 5,000 unit Q8HRS SQ Last administered on 09/20/21at 05:43; Start 09/19/21 at 22:00 Info (Icu Electrolyte Protocol) 1 ea CONT PRN PRN MC SEE COMMENTS; Start 09/20/21 at 01:15 Etomidate (Amidate) 20 mg STK-MED ONCE IV ; Start 09/20/21 at 01:20; Stop 09/20/21 at 01:21; Status DC Succinylcholine Chloride (Anectine) 200 mg STK-MED ONCE .ROUTE ; Start 09/20/21 at 01:20; Stop 09/20/21 at 01:21; Status DC Fentanyl Citrate 30 ml @ 2.5 mls/hr CONT PRN IV SEE PROTOCOL Last administered on 09/20/21at 07:36; Start 09/20/21 at 01:30 Propofol 100 ml @ 1.95 mls/hr CONT PRN IV PER PROTOCOL Last administered on 09/20/21at 01:42; Start 09/20/21 at 01:30 Vecuronium [place] (Norcuron Bolus) 6 mg PRN 1X PRN IV VENT INDUCTION; Start 09/20/21 at 01:30; Stop 09/21/21 at 01:29 Influenza Virus Vaccine Quadrival (Flulaval Quad [id number] Syringe) 0.5 ml ONCE ONCE VAX IM ; Start 09/20/21 at 03:45; Stop 09/20/21 at 03:46; Status UNV Dexmedetomidine HCl 400 mcg/ Sodium Chloride 100 ml @ 3.25 mls/hr CONT PRN IV PER PROTOCOL; Start 09/20/21 at 05:45 Midazolam HCl 100 ml @ 1 mls/hr CONT PRN IV SEE PROTOCOL Last administered on 09/20/21at 07:41; Start 09/20/21 at 07:30 Norepinephrine Bitartrate 8 mg/ Dextrose 258 ml @ 12.578 mls/ hr CONT PRN IV PER PROTOCOL Last administered on 09/20/21at 07:40; Start 09/20/21 at 07:30 Piperacillin Sod/ Tazobactam Sod (Zosyn Per Pharmacy) 1 each PRN DAILY PRN MC SEE COMMENTS; Start 09/20/21 at 08:30 Piperacillin Sod/ Tazobactam Sod 3.375 gm/Sodium Chloride 50 ml @ 100 mls/hr Q6HRS IV ; Start 09/20/21 at 09:00 Pantoprazole Sodium (PROTONIX VIAL for IV PUSH) 40 mg DAILYAC IVP ; Start 09/20/21 at 09:00 Active Scripts Active Reported Ibuprofen 800 Mg Tablet 800 Mg PO PRN Q6HRS PRN Acetaminophen 500 Mg Tablet 1,000 Mg PO PRN Q6HRS PRN Omeprazole 40 Mg Capsule.dr 40 Mg PO DAILY Allergies Allergies: Coded Allergies: No Known Drug Allergies (Unverified , 09/19/21) ROS Review of System Unable to be obtained at this time due to clinical condition Physical Exam Physical Exam General: Intubated and sedated. No acute distress. HEENT: Icteric sclera Lungs: Clear to auscultation, Normal air movement Heart: RRR, no murmurs Cardiovascular: S1, S2 Abdomen: Normal bowel sounds, Soft Extremities: No clubbing, No cyanosis Skin: Jaundiced appearing. No rashes, No significant lesion. Neuro: Normal tone, Sensation intact Psych/Mental Status: Sedated Vitals Vitals Vital Signs Date Time Temp Pulse Resp B/P (MAP) Pulse Ox O2 Delivery O2 Flow Rate FiO2 09/20/21 08:36 97 Ventilator 09/20/21 08:19 23 09/20/21 08:00 100 68/41 09/20/21 04:00 98.0 98.0 09/20/21 01:00 15.0 Labs Labs Laboratory Tests Test 09/19/21 15:16 09/19/21 15:43 09/19/21 23:44 09/20/21 00:55 Urine Collection Type Void Urine Color (Auto) Dark yellow Urine Turbidity Clear Urine pH (Auto) 6.0 (<5.0-8.0) Urine Specific [place] 1.028 (1.000-1.030) Urine Protein (Auto) 30 mg/dL (Negative) Urine Glucose (Auto)(UA) Negative mg/dL (Negative) Urine Ketones (Auto) 10 mg/dL (Negative) Urine Blood (Auto) Negative (Negative) Urine Nitrite Negative (Negative) Urine Bilirubin (Auto) Moderate (Negative) Urine Urobilinogen (Auto) 6 mg/dL (Normal) Urine Leukocyte Esterase (Auto) Negative (Negative) Urine RBC 3-5 /HPF (0-2) Urine WBC 1-4 /HPF (0-4) Urine Squamous Epithelial Cells Mod /LPF Urine Amorphous Sediment Present /HPF Urine Bacteria 0 /HPF (0-FEW) Urine Mucus Slight /LPF Urine Opiates Screen Neg (NEG) Urine Methadone Screen Neg (NEG) Urine Barbiturates Neg (NEG) Urine Phencyclidine Screen Neg (NEG) Urine Amphetamine/Methamphetamine Pos (NEG) Urine Benzodiazepines Screen Neg (NEG) Urine Cocaine Screen Neg (NEG) Urine Cannabinoids Screen Neg (NEG) Urine Ethyl Alcohol Neg (NEG) White Blood Count 10.6 x10^3/uL (4.0-11.0) 25.3 x10^3/uL (4.0-11.0) Red Blood Count 4.28 x10^6/uL (3.50-5.40) 4.21 x10^6/uL (3.50-5.40) Hemoglobin 11.8 g/dL (12.0-15.5) 11.6 g/dL (12.0-15.5) Hematocrit 34.9 % (36.0-47.0) 36.9 % (36.0-47.0) Mean Corpuscular Volume 82 fL (79-100) 88 fL (79-100) Mean Corpuscular Hemoglobin 28 pg (25-35) 28 pg (25-35) Mean Corpuscular Hemoglobin Concent 34 g/dL (31-37) 31 g/dL (31-37) Red Cell Distribution Width 14.3 % (11.5-14.5) 15.5 % (11.5-14.5) Platelet Count 350 x10^3/uL (140-400) 451 x10^3/uL (140-400) Neutrophils (%) (Auto) 91 % (31-73) Lymphocytes (%) (Auto) 6 % (24-48) Monocytes (%) (Auto) 2 % (0-9) Eosinophils (%) (Auto) 0 % (0-3) Basophils (%) (Auto) 0 % (0-3) Neutrophils # (Auto) 9.7 x10^3/uL (1.8-7.7) Lymphocytes # (Auto) 0.7 x10^3/uL (1.0-4.8) Monocytes # (Auto) 0.2 x10^3/uL (0.0-1.1) Eosinophils # (Auto) 0.0 x10^3/uL (0.0-0.7) Basophils # (Auto) 0.0 x10^3/uL (0.0-0.2) Prothrombin Time 13.1 SEC (11.7-14.0) Prothromb Time International Ratio 1.0 (0.8-1.1) Activated Partial Thromboplast Time 25 SEC (24-38) Sodium Level 139 mmol/L (136-145) Potassium Level 2.4 mmol/L (3.5-5.1) Chloride Level 103 mmol/L (98-107) Carbon Dioxide Level 20 mmol/L (21-32) Anion Gap 16 (6-14) Blood Urea Nitrogen 27 mg/dL (7-20) Creatinine 0.5 mg/dL (0.6-1.0) Estimated GFR (Cockcroft-Gault) 127.6 BUN/Creatinine Ratio 54 (6-20) Glucose Level 100 mg/dL (70-99) Calcium Level 9.5 mg/dL (8.5-10.1) Magnesium Level 1.4 mg/dL (1.8-2.4) Total Bilirubin 8.0 mg/dL (0.2-1.0) Aspartate Amino Transf (AST/SGOT) 138 U/L (15-37) Alanine Aminotransferase (ALT/SGPT) 157 U/L (14-59) Alkaline Phosphatase 572 U/L (46-116) Creatine Kinase 88 U/L (26-192) Troponin I High Sensitivity 16 ng/L (4-50) Total Protein 6.7 g/dL (6.4-8.2) Albumin 3.1 g/dL (3.4-5.0) Albumin/Globulin Ratio 0.9 (1.0-1.7) Lipase 142 U/L (73-393) Ethyl Alcohol Level < 10 mg/dL (0-10) O2 Saturation 96 % (92-99) Arterial Blood pH 7.03 (7.35-7.45) Arterial Blood pCO2 at Patient Temp 78 mmHg (35-46) Arterial Blood pO2 at Patient Temp 128 mmHg (75-108) Arterial Blood HCO3 20 mmol/L (21-28) Arterial Blood Base Excess -12 mmol/L (-3-3) FiO2 50 (bipap) Test 09/20/21 02:06 09/20/21 07:39 O2 Saturation 95 % (92-99) 99 % (92-99) Arterial Blood pH 7.28 (7.35-7.45) 7.35 (7.35-7.45) Arterial Blood pCO2 at Patient Temp 37 mmHg (35-46) 34 mmHg (35-46) Arterial Blood pO2 at Patient Temp 84 mmHg (75-108) 196 mmHg (75-108) Arterial Blood HCO3 17 mmol/L (21-28) 18 mmol/L (21-28) Arterial Blood Base Excess -9 mmol/L (-3-3) -7 mmol/L (-3-3) FiO2 55 55% vent Laboratory Tests Test 09/19/21 15:16 09/19/21 15:43 09/19/21 23:44 09/20/21 00:55 Urine Collection Type Void Urine Color (Auto) Dark yellow Urine Turbidity Clear Urine pH (Auto) 6.0 (<5.0-8.0) Urine Specific [place] 1.028 (1.000-1.030) Urine Protein (Auto) 30 mg/dL (Negative) Urine Glucose (Auto)(UA) Negative mg/dL (Negative) Urine Ketones (Auto) 10 mg/dL (Negative) Urine Blood (Auto) Negative (Negative) Urine Nitrite Negative (Negative) Urine Bilirubin (Auto) Moderate (Negative) Urine Urobilinogen (Auto) 6 mg/dL (Normal) Urine Leukocyte Esterase (Auto) Negative (Negative) Urine RBC 3-5 /HPF (0-2) Urine WBC 1-4 /HPF (0-4) Urine Squamous Epithelial Cells Mod /LPF Urine Amorphous Sediment Present /HPF Urine Bacteria 0 /HPF (0-FEW) Urine Mucus Slight /LPF Urine Opiates Screen Neg (NEG) Urine Methadone Screen Neg (NEG) Urine Barbiturates Neg (NEG) Urine Phencyclidine Screen Neg (NEG) Urine Amphetamine/Methamphetamine Pos (NEG) Urine Benzodiazepines Screen Neg (NEG) Urine Cocaine Screen Neg (NEG) Urine Cannabinoids Screen Neg (NEG) Urine Ethyl Alcohol Neg (NEG) White Blood Count 10.6 x10^3/uL (4.0-11.0) 25.3 x10^3/uL (4.0-11.0) Red Blood Count 4.28 x10^6/uL (3.50-5.40) 4.21 x10^6/uL (3.50-5.40) Hemoglobin 11.8 g/dL (12.0-15.5) 11.6 g/dL (12.0-15.5) Hematocrit 34.9 % (36.0-47.0) 36.9 % (36.0-47.0) Mean Corpuscular Volume 82 fL (79-100) 88 fL (79-100) Mean Corpuscular Hemoglobin 28 pg (25-35) 28 pg (25-35) Mean Corpuscular Hemoglobin Concent 34 g/dL (31-37) 31 g/dL (31-37) Red Cell Distribution Width 14.3 % (11.5-14.5) 15.5 % (11.5-14.5) Platelet Count 350 x10^3/uL (140-400) 451 x10^3/uL (140-400) Neutrophils (%) (Auto) 91 % (31-73) Lymphocytes (%) (Auto) 6 % (24-48) Monocytes (%) (Auto) 2 % (0-9) Eosinophils (%) (Auto) 0 % (0-3) Basophils (%) (Auto) 0 % (0-3) Neutrophils # (Auto) 9.7 x10^3/uL (1.8-7.7) Lymphocytes # (Auto) 0.7 x10^3/uL (1.0-4.8) Monocytes # (Auto) 0.2 x10^3/uL (0.0-1.1) Eosinophils # (Auto) 0.0 x10^3/uL (0.0-0.7) Basophils # (Auto) 0.0 x10^3/uL (0.0-0.2) Prothrombin Time 13.1 SEC (11.7-14.0) Prothromb Time International Ratio 1.0 (0.8-1.1) Activated Partial Thromboplast Time 25 SEC (24-38) Sodium Level 139 mmol/L (136-145) Potassium Level 2.4 mmol/L (3.5-5.1) Chloride Level 103 mmol/L (98-107) Carbon Dioxide Level 20 mmol/L (21-32) Anion Gap 16 (6-14) Blood Urea Nitrogen 27 mg/dL (7-20) Creatinine 0.5 mg/dL (0.6-1.0) Estimated GFR (Cockcroft-Gault) 127.6 BUN/Creatinine Ratio 54 (6-20) Glucose Level 100 mg/dL (70-99) Calcium Level 9.5 mg/dL (8.5-10.1) Magnesium Level 1.4 mg/dL (1.8-2.4) Total Bilirubin 8.0 mg/dL (0.2-1.0) Aspartate Amino Transf (AST/SGOT) 138 U/L (15-37) Alanine Aminotransferase (ALT/SGPT) 157 U/L (14-59) Alkaline Phosphatase 572 U/L (46-116) Creatine Kinase 88 U/L (26-192) Troponin I High Sensitivity 16 ng/L (4-50) Total Protein 6.7 g/dL (6.4-8.2) Albumin 3.1 g/dL (3.4-5.0) Albumin/Globulin Ratio 0.9 (1.0-1.7) Lipase 142 U/L (73-393) Ethyl Alcohol Level < 10 mg/dL (0-10) O2 Saturation 96 % (92-99) Arterial Blood pH 7.03 (7.35-7.45) Arterial Blood pCO2 at Patient Temp 78 mmHg (35-46) Arterial Blood pO2 at Patient Temp 128 mmHg (75-108) Arterial Blood HCO3 20 mmol/L (21-28) Arterial Blood Base Excess -12 mmol/L (-3-3) FiO2 50 (bipap) Test 09/20/21 02:06 09/20/21 07:39 O2 Saturation 95 % (92-99) 99 % (92-99) Arterial Blood pH 7.28 (7.35-7.45) 7.35 (7.35-7.45) Arterial Blood pCO2 at Patient Temp 37 mmHg (35-46) 34 mmHg (35-46) Arterial Blood pO2 at Patient Temp 84 mmHg (75-108) 196 mmHg (75-108) Arterial Blood HCO3 17 mmol/L (21-28) 18 mmol/L (21-28) Arterial Blood Base Excess -9 mmol/L (-3-3) -7 mmol/L (-3-3) FiO2 55 55% vent Images Images PATIENT: CALISTA PINTO ACCOUNT: [id number] : 1965 LOCATION: ER AGE: 56 SEX: F EXAM STATUS: REG ER ORD. PHYSICIAN: LILIAN LOGAN DO REASON: chest pain PROCEDURE: PORTABLE CHEST 1V Single AP view of the chest. Comparison: None. Indication: Chest pain Findings: The heart is not enlarged. There is no pneumothorax or effusion. No air space or interstitial disease. Impression: 1. No acute cardiopulmonary process. Electronically signed by: Trevin Munoz MD (09/19/2021 3:52 PM) [facility] DICTATED and SIGNED BY: TREVIN MUNOZ MD DATE: 09/19/211551 IMAGING REPORT Signed PATIENT: CALISTA PINTO ACCOUNT: [id number] : 1965 LOCATION: ER AGE: 56 SEX: F EXAM STATUS: REG ER ORD. PHYSICIAN: LILIAN LOGAN DO REASON: abd pain, concern for choledocholithiasis PROCEDURE: CT ABD PELV W/ IV CONTRST ONLY Examination: CT of the abdomen pelvis with IV contrast HISTORY: History of choledocholithiasis COMPARISON: None available Technique: Axial CT images of the abdomen pelvis were performed with IV contrast. Coronal and sagittal reformats are performed. Exposure: One or more of the following individualized dose reduction techniques were utilized for this examination: 1. Automated exposure control 2. Adjustment of the mA and/or kV according to patient size 3. Use of iterative reconstruction technique. FINDINGS: Minimal bibasilar lung atelectasis. No evidence of free air identified in the abdomen. Dilated appearing intrahepatic bile ducts. The common bile duct is dilated measuring 2 cm in transverse dimension. There is possible opacity in the distal common bile duct could be choledocholithiasis or mass. The gallbladder is mildly distended. Gallstones identified in the proximal gallbladder. The spleen, adrenals grossly appears unremarkable. The stomach is mildly distended. The small bowel is nondilated. Feces and gas noted in the colon. The evaluation of the colon is limited due to motion artifact. Urinary bladder is mildly distended Bilateral kidneys enhance symmetrically. Moderate degenerative changes lumbar spine. IMPRESSION: 1. Dilated appearing intrahepatic bile ducts and common bile duct with possible opacity in the distal common bile duct could be choledocholithiasis or mass. Recommend ERCP or MRCP. 2. Cholelithiasis. PATIENT: CALISTA PINTO ACCOUNT: [id number] : 1965 LOCATION: ER AGE: 56 SEX: F EXAM STATUS: REG ER ORD. PHYSICIAN: LILIAN LOGAN DO REASON: RUQ abd pain PROCEDURE: ABDOMEN LTD EXAM: ULTRASOUND ABDOMEN LIMITED CLINICAL HISTORY: Right upper quadrant abdominal pain COMPARISON: None available. TECHNIQUE: Limited ultrasound examination of the right upper quadrant of the abdomen was performed. FINDINGS: The liver length measures 17.7 cm. There is prominent appearing intrahepatic bile duct and extra hepatic bile ducts. The common bile duct measures 2 cm in transverse dimension. There is echogenicity identified within the gallbladder likely sludge or gallstones. Ultrasonographic evidence of Brambila's sign identified. The right kidney measures 10.6 x 4.9 x 4.6 cm. The aorta, IVC are not well-visualized due to bowel gas. Minimal prominent pancreatic duct. IMPRESSION: 1. Dilated common bile duct measuring 2 cm. Distal common bile duct obstruction is not excluded. 2. Echogenicity identified within the gallbladder likely gallstones. Examination is positive for ultrasonographic evidence of Brambila's sign. Correlate for cholecystitis. PATIENT: CALISTA PINTO ACCOUNT: [id number] : 1965 LOCATION: [address] [place] [address] AGE: 56 SEX: F EXAM STATUS: ADM IN ORD. PHYSICIAN: SHELIA AKERS MD REASON: portable, sats are in 50's PROCEDURE: CHEST AP ONLY XR CHEST 1V 09/19/2021 11:14 PM INDICATION: Low oxygen saturation COMPARISON: 09/19/2021 TECHNIQUE: Portable frontal view of the chest is provided. FINDINGS: The cardiomediastinal silhouette is within normal limits. Mild interstitial changes appear progressed. There are no significant pleural effusions. There is no pulmonary vascular congestion. No pneumothorax. No suspicious osseous abnormality. IMPRESSION: Mild interstitial changes appear progressed as may be seen with worsening interstitial pneumonitis. Limited evaluation of the left costophrenic angle. VTE Prophylaxis Ordered VTE Prophylaxis Devices: No VTE Pharmacological Prophylaxi: Yes Assessment/Plan Assessment/Plan Sepsis Choledocholithiasis Acute hypoxic respiratory failure Interstitial pneumonitis/aspiration pneumonia Transaminitis Hypokalemia Hypomagnesemia Methamphetamine abuse Plan: Currently intubated and sedated in the ICU. Also requiring Precedex for alcohol withdrawal. Will continue treatment with IV Zosyn Consults GI She will likely need her gallbladder removed in the future, but is currently not surgical candidate. Electrolyte replacement protocol FEN - NPO PPX - Heparin FULL CODE/no surrogate decision maker has been named at this time Dispo - inpatient for above Critical care time 33 minutes spent reviewing charts, reviewing labs, reviewing imaging, discussion with RN. Justifications for Admission Other Justification JANICE GONZALEZ MD Sep 20, 2021 09:52
--- NOTE | 2021-09-20 09:54 | NUR ---
rapid titration note. Levophed ordered and started per protocol at .1 mch/kg/min, but BP remained low, map in the 40s and 50s. Levophed rapidly titrated up to .2 where bp stabilized off. versed was also started and propofol ended. versed was started at 1 mg/hr but needed to be rapidly titrated up to 5 to achieve proper sedation.
--- NOTE | 2021-09-20 09:58 | NUR ---
SS following for discharge planning. SS reviewed pt chart and discussed with pt RN. Pt is from home and is currently on the vent at 40%. Pt coded last night. Pt on Versed, Precedex, Fentanyl, and Levophed. Pt on IV Zosyn. Tube feeds. Methamphetamine positive and history of ETOH. SS will continue to follow for discharge planning.
[2021-09-20 10:02] LABS: BASO % 0 % (0-3); EOS % 0 % (0-3); HEMATOCRIT 33.3 % (36.0-47.0); HEMOGLOBIN 10.8 g/dL (12.0-15.5); LYMPH # 1.8 x10^3/uL (1.0-4.8); LYMPH % 12 % (24-48); MEAN CORPUSCULAR HEMOGLOBIN 27 pg (25-35); MEAN CORPUSCULAR HGB CONC 32 g/dL (31-37); MEAN CORPUSCULAR VOLUME 84 fL (79-100); MONO # 0.8 x10^3/uL (0.0-1.1); MONO % 5 % (0-9); NEUT # 13.2 x10^3/uL (1.8-7.7); NEUT % 83 % (31-73); PLATELET COUNT 358 x10^3/uL (140-400); RED BLOOD COUNT 3.97 x10^6/uL (3.50-5.40); RED CELL DISTRIBUTION WIDTH 14.8 % (11.5-14.5); WHITE BLOOD COUNT 15.8 x10^3/uL (4.0-11.0)
[2021-09-20 10:15] LABS: ALBUMIN 2.5 g/dL (3.4-5.0); ALBUMIN/GLOBULIN RATIO 0.7 (1.0-1.7); CALCIUM 8.5 mg/dL (8.5-10.1); CREATININE 0.5 mg/dL (0.6-1.0); GFR 127.6; MAGNESIUM 1.7 mg/dL (1.8-2.4); PHOSPHORUS 3.3 mg/dL (2.6-4.7); POTASSIUM 3.3 mmol/L (3.5-5.1)
[2021-09-20] MEDS: PIPERACILLIN/TAZOBACTAM 3.375 GM in IV NORMAL SALINE 50ML 50 ML IV SCH ×3 (10:20→18:03)
[2021-09-20] MEDS: MULTIVIT INFUSN,ADULT 4,VIT K 10 ML, THIAMINE INJ 100 MG, FOLIC ACID INJ 1 MG in IV NOR... IV SCH (10:20)
[2021-09-20] MEDS: PANTOPRAZOLE IV PUSH 40 MG VIAL. IVP SCH (10:22)
[2021-09-20 11:27] LABS: % BANDS 15 % (0-9); % LYMPHS 13 % (24-48); % METAS 1 % (0-0); % MONOS 3 % (0-10); % SEGS 68 % (35-66); PLT ESTIMATE ADEQUATE (ADEQUATE)
--- NOTE | 2021-09-20 11:39 | CONS ---
DATE OF CONSULTATION: 09/20/2021 PULMONARY CONSULTATION ATTENDING PHYSICIAN: Sanchez Miller MD REASON FOR CONSULTATION: Respiratory failure. HISTORY OF PRESENT ILLNESS: The patient is a 56-year-old female who has a history of alcoholism and meth use. She was brought into the hospital with progressive generalized right upper quadrant pain. The patient was having itchy skin as well. She has multiple episodes of nausea and vomiting. The patient was noticed to be jaundiced. The patient was seen in the ER. The patient apparently received Ativan and morphine. She then had a respiratory arrest. Asystole was reported. Arterial blood gases initially revealed a pH of 7.03, pCO2 of 78 and a pO2 of 128 with a bicarbonate of 20. She was intubated. Currently, she is on assist control mode, tidal volume of 450 and 40% FiO2. PH is 7.35, pCO2 of 34 and a pO2 of 196 with bicarbonate of 18. She has a minimal cuff leak in the ET tube. Chest x-ray revealed improved aeration of bilateral lungs with some possible right lower lobe atelectasis. Her abdominal CT revealed dilated intrahepatic bile ducts and common bile duct with possible opacity in the distal common bile duct, which could be secondary to choledocholithiasis or mass. ERCP is recommended. GI is on the case. She is requiring low-dose Levophed. She did receive 1 liter of IV fluids. A consultation requested for further evaluation and management. PAST MEDICAL HISTORY: Significant for history of hypertension. PAST SURGICAL HISTORY: Tubal ligation. SOCIAL HISTORY: Everyday smoker, history of heavy alcohol use and history of substance abuse including meth. ALLERGIES: None. MEDICATIONS: Reviewed as listed in the MRAD including antibiotic, Zosyn. REVIEW OF SYSTEMS: Unable to obtain as she is on the ventilator. PHYSICAL EXAMINATION: VITAL SIGNS: Reviewed. Pulse ox is 100%. Afebrile. NECK: Supple. LUNGS: With diminished breath sounds bilaterally. No wheezing. CARDIOVASCULAR: With a regular rate. ABDOMEN: Soft, nontender. EXTREMITIES: With no pitting edema. LABORATORY DATA: Reviewed. Sodium 148, potassium 3.3, chloride 114, BUN 21 and creatinine of 0.5. Bilirubin was 8, down to 4. AST 157, ALT 174, alkaline phosphatase 391. Albumin is 2.5. Urine drug screen positive for meth. INR 1.0. ABGs are discussed in my history of present illness. The white cell count was 25.8, now down to 15.8. IMPRESSION: 1. Acute hypercapnic respiratory failure secondary to toxic encephalopathy from the effect of Ativan and morphine resulting in acute hypercapnia and respiratory arrest. She had brief asystole as well. Now, arterial blood gases showing complete resolution of hypercapnia. 2. History of meth use and heavy alcohol use. 3. Abnormal CT abdomen and pelvis with evidence of choledocholithiasis or mass. GI is following. ERCP is recommended. 4. Leukocytosis. 5. Hypokalemia, currently being corrected. 6. Hyperbilirubinemia along with abnormal transaminases. 7. Moderate protein-calorie malnutrition. 8. History of tobaccoism. 9. Shock, combination of hypovolemic as well as medication related. Currently, blood pressure is stable. RECOMMENDATIONS: 1. We will continue present assist control mode. Await GI and Interventional Radiology recommendations for intervention. We will hold off any further weaning at this point. 2. Follow ABGs and make necessary adjustment. 3. Continue broad-spectrum antibiotics. 4. We will inflate the endotracheal tube cuff for minimal cuff leak. 5. Continue with PPI. 6. Continue with sedation. 7. Another fluid bolus and wean off Levophed. 8. Heparin for DVT prophylaxis. 9. Discussed with RN and RT. Chart reviewed. Imaging studies reviewed. Total critical care time [address]: Hector TID: [id number]
[2021-09-20] MEDS: POTASSIUM CHLORIDE 10MEQ 100 ML IV SCH ×4 (11:50→15:22)
--- NOTE | 2021-09-20 14:03 | PDOC2 ---
CONSULT Date of Consult Date of Consult DATE: 09/20/21 TIME: 14:00 Reason for Consult Reason for Consult: obstructive jaundice Referring Physician Referring Physician: Dr. Miller Identification/Chief Complaint Chief Complaint none Source Source: Chart review History of Present Illness Reason for Visit: 56 yo F presents s/p code and currently vented. Pt non responsive. Past Medical History Cardiovascular: HTN Past Surgical History Past Surgical History: Tubal Ligation Family History Family History: Family History Unknown Social History 1 pack per day ALCOHOL: heavy Drugs: Crystal meth (tox screen +ampethamines) Current Problem List Problem List Problems Medical Problems: (1) Cholecystitis, acute with cholelithiasis Status: Acute (2) Choledocholithiasis Status: Acute (3) Hyperbilirubinemia Status: Acute (4) Obstructive jaundice Status: Acute (5) Transaminitis Status: Acute Current Medications Current Medications Current Medications Sodium Chloride 1,000 ml @ 1,000 mls/hr 1X ONCE IV Last administered on 09/19/21at 15:49; Start 09/19/21 at 15:30; Stop 09/19/21 at 16:29; Status DC Lorazepam (Ativan Inj) 1 mg 1X ONCE IVP Last administered on 09/19/21at 15:48; Start 09/19/21 at 15:30; Stop 09/19/21 at 15:31; Status DC Ondansetron HCl (Zofran) 4 mg 1X ONCE IVP Last administered on 09/19/21at 15:47; Start 09/19/21 at 15:30; Stop 09/19/21 at 15:31; Status DC Fentanyl Citrate (Fentanyl 2ml Vial) 50 mcg 1X ONCE IVP Last administered on 09/19/21at 15:48; Start 09/19/21 at 15:30; Stop 09/19/21 at 15:31; Status DC Potassium Chloride (Klor-Con) 40 meq 1X ONCE PO Last administered on 09/19/21at 17:17; Start 09/19/21 at 17:15; Stop 09/19/21 at 17:16; Status DC Iohexol (Omnipaque 300 Mg/ml) 75 ml 1X ONCE IV Last administered on 09/19/21at 17:24; Start 09/19/21 at 17:15; Stop 09/19/21 at 17:16; Status DC Piperacillin Sod/ Tazobactam Sod 3.375 gm/Sodium Chloride 50 ml @ 100 mls/hr 1X ONCE IV Last administered on 09/19/21at 17:38; Start 09/19/21 at 17:15; Stop 09/19/21 at 17:44; Status DC Morphine Sulfate (Morphine Sulfate) 4 mg 1X ONCE IVP Last administered on 09/19/21at 17:37; Start 09/19/21 at 17:15; Stop 09/19/21 at 17:16; Status DC Potassium Chloride/Water 100 ml @ 50 mls/hr 1X ONCE IV Last administered on 09/19/21at 18:45; Start 09/19/21 at 17:30; Stop 09/19/21 at 19:29; Status DC Sodium Chloride 1,000 ml @ 1,000 mls/hr 1X ONCE IV Last administered on 09/19/21at 18:16; Start 09/19/21 at 17:45; Stop 09/19/21 at 18:44; Status DC Multivitamins 10 ml/Thiamine HCl 100 mg/Folic Acid 1 mg/Sodium Chloride 1,011.2 ml @ 100 mls/ hr DAILY IV Last administered on 09/20/21at 10:20; Start 09/19/21 at 18:00; Stop 09/23/21 at 19:07 Multivitamins (Thera M Plus) 1 tab DAILY PO ; Start 09/24/21 at 09:00 Folic Acid (Folic Acid) 1 mg DAILY PO ; Start 09/24/21 at 09:00 Thiamine Mononitrate (Vitamin B-1) 100 mg DAILY PO ; Start 09/24/21 at 09:00 Lorazepam (Ativan) 4 mg PRN Q1HR PRN PO For CIWA 8-14 Last administered on 09/19/21at 20:17; Start 09/19/21 at 17:45 Lorazepam (Ativan) 8 mg PRN Q1HR PRN PO For CIWA 15 or greater; Start 09/19/21 at 17:45 Sodium Chloride 1,000 ml @ 1,000 mls/hr 1X ONCE IV Last administered on 09/19/21at 18:15; Start 09/19/21 at 18:15; Stop 09/19/21 at 19:14; Status DC Ondansetron HCl (Zofran) 4 mg PRN Q6HRS PRN IVP NAUSEA/VOMITING; Start 09/19/21 at 20:30 Calcium Carbonate/ Glycine (Tums) 500 mg PRN Q3HRS PRN PO UPSET STOMACH; Start 09/19/21 at 20:30 Info (Non-Icu Electrolyte Protocol) 1 ea PRN DAILY PRN MC SEE COMMENTS; Start 09/19/21 at 20:30; Stop 09/20/21 at 01:12; Status DC Morphine Sulfate (Morphine Sulfate) 1 mg PRN Q1HR PRN IV PAIN; Start 09/19/21 at 20:30 Morphine Sulfate (Morphine Sulfate) 2 mg PRN Q1HR PRN IV PAIN Last administered on 09/19/21at 20:15; Start 09/19/21 at 20:30 Acetaminophen (Tylenol) 650 mg PRN Q6HRS PRN PO Headaches, Temp > 101.5F; Start 09/19/21 at 20:30 Senna/Docusate Sodium (Senna Plus) 1 tab BID PO ; Start 09/19/21 at 21:00 Heparin Sodium (Porcine) (Heparin Sodium) 5,000 unit Q8HRS SQ Last administered on 09/20/21at 05:43; Start 09/19/21 at 22:00 Info (Icu Electrolyte Protocol) 1 ea CONT PRN PRN MC SEE COMMENTS; Start 09/20/21 at 01:15 Etomidate (Amidate) 20 mg STK-MED ONCE IV ; Start 09/20/21 at 01:20; Stop 09/20/21 at 01:21; Status DC Succinylcholine Chloride (Anectine) 200 mg STK-MED ONCE .ROUTE ; Start 09/20/21 at 01:20; Stop 09/20/21 at 01:21; Status DC Fentanyl Citrate 30 ml @ 2.5 mls/hr CONT PRN IV SEE PROTOCOL Last administered on 09/20/21at 07:36; Start 09/20/21 at 01:30 Propofol 100 ml @ 1.95 mls/hr CONT PRN IV PER PROTOCOL Last administered on 09/20/21at 01:42; Start 09/20/21 at 01:30 Vecuronium Mauldin (Norcuron Bolus) 6 mg PRN 1X PRN IV VENT INDUCTION; Start 09/20/21 at 01:30; Stop 09/21/21 at 01:29 Influenza Virus Vaccine Quadrival (Flulaval Quad Syringe) 0.5 ml ONCE ONCE VAX IM ; Start 09/20/21 at 03:45; Stop 09/20/21 at 03:46; Status UNV Dexmedetomidine HCl 400 mcg/ Sodium Chloride 100 ml @ 3.25 mls/hr CONT PRN IV PER PROTOCOL; Start 09/20/21 at 05:45 Midazolam HCl 100 ml @ 1 mls/hr CONT PRN IV SEE PROTOCOL Last administered on 09/20/21at 07:41; Start 09/20/21 at 07:30 Norepinephrine Bitartrate 8 mg/ Dextrose 258 ml @ 12.578 mls/ hr CONT PRN IV PER PROTOCOL Last administered on 09/20/21at 07:40; Start 09/20/21 at 07:30 Piperacillin Sod/ Tazobactam Sod (Zosyn Per Pharmacy) 1 each PRN DAILY PRN MC SEE COMMENTS; Start 09/20/21 at 08:30 Piperacillin Sod/ Tazobactam Sod 3.375 gm/Sodium Chloride 50 ml @ 100 mls/hr Q6HRS IV Last administered on 09/20/21at 12:33; Start 09/20/21 at 09:00 Pantoprazole Sodium (PROTONIX VIAL for IV PUSH) 40 mg DAILYAC IVP Last administered on 09/20/21at 10:22; Start 09/20/21 at 09:00 Potassium Chloride/Water 100 ml @ 100 mls/hr Q1H IV Last administered on 09/20/21at 13:09; Start 09/20/21 at 12:00; Stop 09/20/21 at 15:59 Lactobacillus Rhamnosus (Culturelle) 1 cap BID PO ; Start 09/20/21 at 21:00 Acetaminophen (Tylenol) 650 mg PRN Q6HRS PRN PEG MILD PAIN / TEMP > 100.3'F; Start 09/20/21 at 13:30 Active Scripts Active Reported Ibuprofen 800 Mg Tablet 800 Mg PO PRN Q6HRS PRN Acetaminophen 500 Mg Tablet 1,000 Mg PO PRN Q6HRS PRN Omeprazole 40 Mg Capsule.dr 40 Mg PO DAILY Allergies Allergies: Coded Allergies: No Known Drug Allergies (Unverified , 09/19/21) ROS Review of System unobtainable Physical Exam General: Other (intubated and sedated, jaundice) HEENT: Atraumatic Lungs: Normal air movement Abdomen: Soft, No tenderness Extremities: No clubbing, No cyanosis Skin: No rashes, No breakdown Vitals VITALS Vital Signs Date Time Temp Pulse Resp B/P (MAP) Pulse Ox O2 Delivery O2 Flow Rate FiO2 09/20/21 13:00 100.9 100 20 141/56 100 Ventilator 100.9 09/20/21 01:00 15.0 Labs Labs Laboratory Tests Test 09/19/21 15:16 09/19/21 15:43 09/19/21 23:44 09/20/21 00:55 Urine Collection Type Void Urine Color (Auto) Dark yellow Urine Turbidity Clear Urine pH (Auto) 6.0 (<5.0-8.0) Urine Specific Kersey 1.028 (1.000-1.030) Urine Protein (Auto) 30 mg/dL (Negative) Urine Glucose (Auto)(UA) Negative mg/dL (Negative) Urine Ketones (Auto) 10 mg/dL (Negative) Urine Blood (Auto) Negative (Negative) Urine Nitrite Negative (Negative) Urine Bilirubin (Auto) Moderate (Negative) Urine Urobilinogen (Auto) 6 mg/dL (Normal) Urine Leukocyte Esterase (Auto) Negative (Negative) Urine RBC 3-5 /HPF (0-2) Urine WBC 1-4 /HPF (0-4) Urine Squamous Epithelial Cells Mod /LPF Urine Amorphous Sediment Present /HPF Urine Bacteria 0 /HPF (0-FEW) Urine Mucus Slight /LPF Urine Opiates Screen Neg (NEG) Urine Methadone Screen Neg (NEG) Urine Barbiturates Neg (NEG) Urine Phencyclidine Screen Neg (NEG) Urine Amphetamine/Methamphetamine Pos (NEG) Urine Benzodiazepines Screen Neg (NEG) Urine Cocaine Screen Neg (NEG) Urine Cannabinoids Screen Neg (NEG) Urine Ethyl Alcohol Neg (NEG) White Blood Count 10.6 x10^3/uL (4.0-11.0) 25.3 x10^3/uL (4.0-11.0) Red Blood Count 4.28 x10^6/uL (3.50-5.40) 4.21 x10^6/uL (3.50-5.40) Hemoglobin 11.8 g/dL (12.0-15.5) 11.6 g/dL (12.0-15.5) Hematocrit 34.9 % (36.0-47.0) 36.9 % (36.0-47.0) Mean Corpuscular Volume 82 fL (79-100) 88 fL (79-100) Mean Corpuscular Hemoglobin 28 pg (25-35) 28 pg (25-35) Mean Corpuscular Hemoglobin Concent 34 g/dL (31-37) 31 g/dL (31-37) Red Cell Distribution Width 14.3 % (11.5-14.5) 15.5 % (11.5-14.5) Platelet Count 350 x10^3/uL (140-400) 451 x10^3/uL (140-400) Neutrophils (%) (Auto) 91 % (31-73) Lymphocytes (%) (Auto) 6 % (24-48) Monocytes (%) (Auto) 2 % (0-9) Eosinophils (%) (Auto) 0 % (0-3) Basophils (%) (Auto) 0 % (0-3) Neutrophils # (Auto) 9.7 x10^3/uL (1.8-7.7) Lymphocytes # (Auto) 0.7 x10^3/uL (1.0-4.8) Monocytes # (Auto) 0.2 x10^3/uL (0.0-1.1) Eosinophils # (Auto) 0.0 x10^3/uL (0.0-0.7) Basophils # (Auto) 0.0 x10^3/uL (0.0-0.2) Prothrombin Time 13.1 SEC (11.7-14.0) Prothromb Time International Ratio 1.0 (0.8-1.1) Activated Partial Thromboplast Time 25 SEC (24-38) Sodium Level 139 mmol/L (136-145) Potassium Level 2.4 mmol/L (3.5-5.1) Chloride Level 103 mmol/L (98-107) Carbon Dioxide Level 20 mmol/L (21-32) Anion Gap 16 (6-14) Blood Urea Nitrogen 27 mg/dL (7-20) Creatinine 0.5 mg/dL (0.6-1.0) Estimated GFR (Cockcroft-Gault) 127.6 BUN/Creatinine Ratio 54 (6-20) Glucose Level 100 mg/dL (70-99) Calcium Level 9.5 mg/dL (8.5-10.1) Magnesium Level 1.4 mg/dL (1.8-2.4) Total Bilirubin 8.0 mg/dL (0.2-1.0) Aspartate Amino Transf (AST/SGOT) 138 U/L (15-37) Alanine Aminotransferase (ALT/SGPT) 157 U/L (14-59) Alkaline Phosphatase 572 U/L (46-116) Creatine Kinase 88 U/L (26-192) Troponin I High Sensitivity 16 ng/L (4-50) Total Protein 6.7 g/dL (6.4-8.2) Albumin 3.1 g/dL (3.4-5.0) Albumin/Globulin Ratio 0.9 (1.0-1.7) Lipase 142 U/L (73-393) Ethyl Alcohol Level < 10 mg/dL (0-10) O2 Saturation 96 % (92-99) Arterial Blood pH 7.03 (7.35-7.45) Arterial Blood pCO2 at Patient Temp 78 mmHg (35-46) Arterial Blood pO2 at Patient Temp 128 mmHg (75-108) Arterial Blood HCO3 20 mmol/L (21-28) Arterial Blood Base Excess -12 mmol/L (-3-3) FiO2 50 (bipap) Test 09/20/21 02:06 09/20/21 07:39 09/20/21 09:48 O2 Saturation 95 % (92-99) 99 % (92-99) Arterial Blood pH 7.28 (7.35-7.45) 7.35 (7.35-7.45) Arterial Blood pCO2 at Patient Temp 37 mmHg (35-46) 34 mmHg (35-46) Arterial Blood pO2 at Patient Temp 84 mmHg (75-108) 196 mmHg (75-108) Arterial Blood HCO3 17 mmol/L (21-28) 18 mmol/L (21-28) Arterial Blood Base Excess -9 mmol/L (-3-3) -7 mmol/L (-3-3) FiO2 55 55% vent White Blood Count 15.8 x10^3/uL (4.0-11.0) Red Blood Count 3.97 x10^6/uL (3.50-5.40) Hemoglobin 10.8 g/dL (12.0-15.5) Hematocrit 33.3 % (36.0-47.0) Mean Corpuscular Volume 84 fL (79-100) Mean Corpuscular Hemoglobin 27 pg (25-35) Mean Corpuscular Hemoglobin Concent 32 g/dL (31-37) Red Cell Distribution Width 14.8 % (11.5-14.5) Platelet Count 358 x10^3/uL (140-400) Neutrophils (%) (Auto) 83 % (31-73) Lymphocytes (%) (Auto) 12 % (24-48) Monocytes (%) (Auto) 5 % (0-9) Eosinophils (%) (Auto) 0 % (0-3) Basophils (%) (Auto) 0 % (0-3) Neutrophils # (Auto) 13.2 x10^3/uL (1.8-7.7) Lymphocytes # (Auto) 1.8 x10^3/uL (1.0-4.8) Monocytes # (Auto) 0.8 x10^3/uL (0.0-1.1) Eosinophils # (Auto) 0.0 x10^3/uL (0.0-0.7) Basophils # (Auto) 0.0 x10^3/uL (0.0-0.2) Segmented Neutrophils % 68 % (35-66) Band Neutrophils % 15 % (0-9) Lymphocytes % 13 % (24-48) Monocytes % 3 % (0-10) Metamyelocytes % 1 % (0-0) Platelet Estimate Adequate (ADEQUATE) Sodium Level 148 mmol/L (136-145) Potassium Level 3.3 mmol/L (3.5-5.1) Chloride Level 114 mmol/L (98-107) Carbon Dioxide Level 18 mmol/L (21-32) Anion Gap 16 (6-14) Blood Urea Nitrogen 21 mg/dL (7-20) Creatinine 0.5 mg/dL (0.6-1.0) Estimated GFR (Cockcroft-Gault) 127.6 BUN/Creatinine Ratio 42 (6-20) Glucose Level 95 mg/dL (70-99) Calcium Level 8.5 mg/dL (8.5-10.1) Phosphorus Level 3.3 mg/dL (2.6-4.7) Magnesium Level 1.7 mg/dL (1.8-2.4) Total Bilirubin 4.0 mg/dL (0.2-1.0) Aspartate Amino Transf (AST/SGOT) 157 U/L (15-37) Alanine Aminotransferase (ALT/SGPT) 174 U/L (14-59) Alkaline Phosphatase 391 U/L (46-116) Total Protein 6.0 g/dL (6.4-8.2) Albumin 2.5 g/dL (3.4-5.0) Albumin/Globulin Ratio 0.7 (1.0-1.7) Hepatitis A IgM Antibody Nonreactive (Nonreactive) Hepatitis B Surface Antigen Nonreactive (Nonreactive) Hepatitis B Core IgM Antibody Nonreactive (Nonreactive) Hepatitis C IgG Antibody Nonreactive (Nonreactive) Laboratory Tests Test 09/19/21 15:16 09/19/21 15:43 09/19/21 23:44 09/20/21 00:55 Urine Collection Type Void Urine Color (Auto) Dark yellow Urine Turbidity Clear Urine pH (Auto) 6.0 (<5.0-8.0) Urine Specific Kersey 1.028 (1.000-1.030) Urine Protein (Auto) 30 mg/dL (Negative) Urine Glucose (Auto)(UA) Negative mg/dL (Negative) Urine Ketones (Auto) 10 mg/dL (Negative) Urine Blood (Auto) Negative (Negative) Urine Nitrite Negative (Negative) Urine Bilirubin (Auto) Moderate (Negative) Urine Urobilinogen (Auto) 6 mg/dL (Normal) Urine Leukocyte Esterase (Auto) Negative (Negative) Urine RBC 3-5 /HPF (0-2) Urine WBC 1-4 /HPF (0-4) Urine Squamous Epithelial Cells Mod /LPF Urine Amorphous Sediment Present /HPF Urine Bacteria 0 /HPF (0-FEW) Urine Mucus Slight /LPF Urine Opiates Screen Neg (NEG) Urine Methadone Screen Neg (NEG) Urine Barbiturates Neg (NEG) Urine Phencyclidine Screen Neg (NEG) Urine Amphetamine/Methamphetamine Pos (NEG) Urine Benzodiazepines Screen Neg (NEG) Urine Cocaine Screen Neg (NEG) Urine Cannabinoids Screen Neg (NEG) Urine Ethyl Alcohol Neg (NEG) White Blood Count 10.6 x10^3/uL (4.0-11.0) 25.3 x10^3/uL (4.0-11.0) Red Blood Count 4.28 x10^6/uL (3.50-5.40) 4.21 x10^6/uL (3.50-5.40) Hemoglobin 11.8 g/dL (12.0-15.5) 11.6 g/dL (12.0-15.5) Hematocrit 34.9 % (36.0-47.0) 36.9 % (36.0-47.0) Mean Corpuscular Volume 82 fL (79-100) 88 fL (79-100) Mean Corpuscular Hemoglobin 28 pg (25-35) 28 pg (25-35) Mean Corpuscular Hemoglobin Concent 34 g/dL (31-37) 31 g/dL (31-37) Red Cell Distribution Width 14.3 % (11.5-14.5) 15.5 % (11.5-14.5) Platelet Count 350 x10^3/uL (140-400) 451 x10^3/uL (140-400) Neutrophils (%) (Auto) 91 % (31-73) Lymphocytes (%) (Auto) 6 % (24-48) Monocytes (%) (Auto) 2 % (0-9) Eosinophils (%) (Auto) 0 % (0-3) Basophils (%) (Auto) 0 % (0-3) Neutrophils # (Auto) 9.7 x10^3/uL (1.8-7.7) Lymphocytes # (Auto) 0.7 x10^3/uL (1.0-4.8) Monocytes # (Auto) 0.2 x10^3/uL (0.0-1.1) Eosinophils # (Auto) 0.0 x10^3/uL (0.0-0.7) Basophils # (Auto) 0.0 x10^3/uL (0.0-0.2) Prothrombin Time 13.1 SEC (11.7-14.0) Prothromb Time International Ratio 1.0 (0.8-1.1) Activated Partial Thromboplast Time 25 SEC (24-38) Sodium Level 139 mmol/L (136-145) Potassium Level 2.4 mmol/L (3.5-5.1) Chloride Level 103 mmol/L (98-107) Carbon Dioxide Level 20 mmol/L (21-32) Anion Gap 16 (6-14) Blood Urea Nitrogen 27 mg/dL (7-20) Creatinine 0.5 mg/dL (0.6-1.0) Estimated GFR (Cockcroft-Gault) 127.6 BUN/Creatinine Ratio 54 (6-20) Glucose Level 100 mg/dL (70-99) Calcium Level 9.5 mg/dL (8.5-10.1) Magnesium Level 1.4 mg/dL (1.8-2.4) Total Bilirubin 8.0 mg/dL (0.2-1.0) Aspartate Amino Transf (AST/SGOT) 138 U/L (15-37) Alanine Aminotransferase (ALT/SGPT) 157 U/L (14-59) Alkaline Phosphatase 572 U/L (46-116) Creatine Kinase 88 U/L (26-192) Troponin I High Sensitivity 16 ng/L (4-50) Total Protein 6.7 g/dL (6.4-8.2) Albumin 3.1 g/dL (3.4-5.0) Albumin/Globulin Ratio 0.9 (1.0-1.7) Lipase 142 U/L (73-393) Ethyl Alcohol Level < 10 mg/dL (0-10) O2 Saturation 96 % (92-99) Arterial Blood pH 7.03 (7.35-7.45) Arterial Blood pCO2 at Patient Temp 78 mmHg (35-46) Arterial Blood pO2 at Patient Temp 128 mmHg (75-108) Arterial Blood HCO3 20 mmol/L (21-28) Arterial Blood Base Excess -12 mmol/L (-3-3) FiO2 50 (bipap) Test 09/20/21 02:06 09/20/21 07:39 09/20/21 09:48 O2 Saturation 95 % (92-99) 99 % (92-99) Arterial Blood pH 7.28 (7.35-7.45) 7.35 (7.35-7.45) Arterial Blood pCO2 at Patient Temp 37 mmHg (35-46) 34 mmHg (35-46) Arterial Blood pO2 at Patient Temp 84 mmHg (75-108) 196 mmHg (75-108) Arterial Blood HCO3 17 mmol/L (21-28) 18 mmol/L (21-28) Arterial Blood Base Excess -9 mmol/L (-3-3) -7 mmol/L (-3-3) FiO2 55 55% vent White Blood Count 15.8 x10^3/uL (4.0-11.0) Red Blood Count 3.97 x10^6/uL (3.50-5.40) Hemoglobin 10.8 g/dL (12.0-15.5) Hematocrit 33.3 % (36.0-47.0) Mean Corpuscular Volume 84 fL (79-100) Mean Corpuscular Hemoglobin 27 pg (25-35) Mean Corpuscular Hemoglobin Concent 32 g/dL (31-37) Red Cell Distribution Width 14.8 % (11.5-14.5) Platelet Count 358 x10^3/uL (140-400) Neutrophils (%) (Auto) 83 % (31-73) Lymphocytes (%) (Auto) 12 % (24-48) Monocytes (%) (Auto) 5 % (0-9) Eosinophils (%) (Auto) 0 % (0-3) Basophils (%) (Auto) 0 % (0-3) Neutrophils # (Auto) 13.2 x10^3/uL (1.8-7.7) Lymphocytes # (Auto) 1.8 x10^3/uL (1.0-4.8) Monocytes # (Auto) 0.8 x10^3/uL (0.0-1.1) Eosinophils # (Auto) 0.0 x10^3/uL (0.0-0.7) Basophils # (Auto) 0.0 x10^3/uL (0.0-0.2) Segmented Neutrophils % 68 % (35-66) Band Neutrophils % 15 % (0-9) Lymphocytes % 13 % (24-48) Monocytes % 3 % (0-10) Metamyelocytes % 1 % (0-0) Platelet Estimate Adequate (ADEQUATE) Sodium Level 148 mmol/L (136-145) Potassium Level 3.3 mmol/L (3.5-5.1) Chloride Level 114 mmol/L (98-107) Carbon Dioxide Level 18 mmol/L (21-32) Anion Gap 16 (6-14) Blood Urea Nitrogen 21 mg/dL (7-20) Creatinine 0.5 mg/dL (0.6-1.0) Estimated GFR (Cockcroft-Gault) 127.6 BUN/Creatinine Ratio 42 (6-20) Glucose Level 95 mg/dL (70-99) Calcium Level 8.5 mg/dL (8.5-10.1) Phosphorus Level 3.3 mg/dL (2.6-4.7) Magnesium Level 1.7 mg/dL (1.8-2.4) Total Bilirubin 4.0 mg/dL (0.2-1.0) Aspartate Amino Transf (AST/SGOT) 157 U/L (15-37) Alanine Aminotransferase (ALT/SGPT) 174 U/L (14-59) Alkaline Phosphatase 391 U/L (46-116) Total Protein 6.0 g/dL (6.4-8.2) Albumin 2.5 g/dL (3.4-5.0) Albumin/Globulin Ratio 0.7 (1.0-1.7) Hepatitis A IgM Antibody Nonreactive (Nonreactive) Hepatitis B Surface Antigen Nonreactive (Nonreactive) Hepatitis B Core IgM Antibody Nonreactive (Nonreactive) Hepatitis C IgG Antibody Nonreactive (Nonreactive) Images Images Imaging concerning for distal CBD obstruction, mass vs stone Assessment/Plan Assessment/Plan Obstructive jaundice pt is critically ill currently with bilirubin improving would hold MRCP or ERCP at this time. Pending medical improvement, would consider MRCP to consider surgical intervention. Thanks for consult! ISAEL JOHNSON MD Sep 20, 2021 14:03
--- NOTE | 2021-09-20 14:49 | PDOC2 ---
CARDIAC CONSULT DATE OF CONSULT Date of Consult DATE: 09/20/21 TIME: 14:30 REASON FOR CONSULT Reason for Consult: Tachycarrhythmia, post code REFERRING PHYSICIAN Referring Physician: Talat SOURCE Source: Chart review HISTORY OF PRESENT ILLNESS HISTORY OF PRESENT ILLNESS This is a 56 yo female admitted for complains of abdominal pain with nausea and vomiting and pruritus/jaundice with hx of alcoholism. Has been compliainign of dark urine. She received ativan and morphine and apparently went into cardiopulmonary arrest with noted asystole. She has been suspected with obstructive jaundice with possible choledocholithiasis. She is positive for methamphetamines with possible binge alcoholism. Presently she is intubated with MV. Consult is for tachycardia. No known hx of CAD or arrhythmias. PAST MEDICAL HISTORY Cardiovascular: HTN GI: GERD Psych: Addictions (hx of ETOH and methamphetamine use) PAST SURGICAL HISTORY Past Surgical History: Tubal Ligation FAMILY HISTORY Family History: Family History Unknown SOCIAL HISTORY ALCOHOL: heavy Drugs: Crystal meth CURRENT MEDICATIONS CURRENT MEDICATIONS Current Medications Medications (Trade) Dose Ordered Sig/Mitch Route PRN Reason Start Time Stop Time Status Last Admin Dose Admin Sodium Chloride 1,000 ml @ 1,000 mls/hr 1X ONCE IV 09/19/21 15:30 09/19/21 16:29 DC 09/19/21 15:49 Lorazepam (Ativan Inj) 1 mg 1X ONCE IVP 09/19/21 15:30 09/19/21 15:31 DC 09/19/21 15:48 Ondansetron HCl (Zofran) 4 mg 1X ONCE IVP 09/19/21 15:30 09/19/21 15:31 DC 09/19/21 15:47 Fentanyl Citrate (Fentanyl 2ml Vial) 50 mcg 1X ONCE IVP 09/19/21 15:30 09/19/21 15:31 DC 09/19/21 15:48 Potassium Chloride (Klor-Con) 40 meq 1X ONCE PO 09/19/21 17:15 09/19/21 17:16 DC 09/19/21 17:17 Iohexol (Omnipaque 300 Mg/ml) 75 ml 1X ONCE IV 09/19/21 17:15 09/19/21 17:16 DC 09/19/21 17:24 Piperacillin Sod/ Tazobactam Sod 3.375 gm/Sodium Chloride 50 ml @ 100 mls/hr 1X ONCE IV 09/19/21 17:15 09/19/21 17:44 DC 09/19/21 17:38 Morphine Sulfate (Morphine Sulfate) 4 mg 1X ONCE IVP 09/19/21 17:15 09/19/21 17:16 DC 09/19/21 17:37 Potassium Chloride/Water 100 ml @ 50 mls/hr 1X ONCE IV 09/19/21 17:30 09/19/21 19:29 DC 09/19/21 18:45 Sodium Chloride 1,000 ml @ 1,000 mls/hr 1X ONCE IV 09/19/21 17:45 09/19/21 18:44 DC 09/19/21 18:16 Multivitamins 10 ml/Thiamine HCl 100 mg/Folic Acid 1 mg/Sodium Chloride 1,011.2 ml @ 100 mls/ hr DAILY IV 09/19/21 18:00 09/23/21 19:07 09/20/21 10:20 Lorazepam (Ativan) 4 mg PRN Q1HR PRN PO For CIWA 8-14 09/19/21 17:45 09/19/21 20:17 Sodium Chloride 1,000 ml @ 1,000 mls/hr 1X ONCE IV 09/19/21 18:15 09/19/21 19:14 DC 09/19/21 18:15 Morphine Sulfate (Morphine Sulfate) 2 mg PRN Q1HR PRN IV PAIN 09/19/21 20:30 09/19/21 20:15 Heparin Sodium (Porcine) (Heparin Sodium) 5,000 unit Q8HRS SQ 09/19/21 22:00 09/20/21 05:43 Fentanyl Citrate 30 ml @ 2.5 mls/hr CONT PRN IV SEE PROTOCOL 09/20/21 01:30 09/20/21 07:36 Propofol 100 ml @ 1.95 mls/hr CONT PRN IV PER PROTOCOL 09/20/21 01:30 09/20/21 01:42 Midazolam HCl 100 ml @ 1 mls/hr CONT PRN IV SEE PROTOCOL 09/20/21 07:30 09/20/21 07:41 Norepinephrine Bitartrate 8 mg/ Dextrose 258 ml @ 12.578 mls/ hr CONT PRN IV PER PROTOCOL 09/20/21 07:30 09/20/21 07:40 Piperacillin Sod/ Tazobactam Sod 3.375 gm/Sodium Chloride 50 ml @ 100 mls/hr Q6HRS IV 09/20/21 09:00 09/20/21 12:33 Pantoprazole Sodium (PROTONIX VIAL for IV PUSH) 40 mg DAILYAC IVP 09/20/21 09:00 09/20/21 10:22 Potassium Chloride/Water 100 ml @ 100 mls/hr Q1H IV 09/20/21 12:00 09/20/21 15:59 09/20/21 13:09 ALLERGIES ALLERGIES: Coded Allergies: No Known Drug Allergies (Unverified , 09/19/21) ROS Review of System unobtainable, intubated PHYSICAL EXAM General: Other (intubated) HEENT: Atraumatic, Mucous membr. moist/pink Lungs: Other (intubated with MV) Heart: Regular rate (SR) Abdomen: Soft, Other (OG in place) Skin: No breakdown Psych/Mental Status: Other (sedated) VITALS/I&O VITALS/I&O: Vital Signs Date Time Temp Pulse Resp B/P (MAP) Pulse Ox O2 Delivery O2 Flow Rate FiO2 09/20/21 14:12 100 Ventilator 09/20/21 13:00 100.9 100 20 141/56 100.9 09/20/21 01:00 15.0 I & O 09/19/21 09/19/21 09/20/21 15:00 23:00 07:00 Intake Total 1200 ml 254 ml Output Total 500 ml Balance 1200 ml -246 ml LABS Lab: Laboratory Tests Test 09/19/21 15:16 09/19/21 15:43 09/19/21 23:44 09/20/21 00:55 Urine Collection Type Void Urine Color (Auto) Dark yellow Urine Turbidity Clear Urine pH (Auto) 6.0 (<5.0-8.0) Urine Specific [place] 1.028 (1.000-1.030) Urine Protein (Auto) 30 mg/dL (Negative) Urine Glucose (Auto)(UA) Negative mg/dL (Negative) Urine Ketones (Auto) 10 mg/dL (Negative) Urine Blood (Auto) Negative (Negative) Urine Nitrite Negative (Negative) Urine Bilirubin (Auto) Moderate (Negative) Urine Urobilinogen (Auto) 6 mg/dL (Normal) Urine Leukocyte Esterase (Auto) Negative (Negative) Urine RBC 3-5 /HPF (0-2) Urine WBC 1-4 /HPF (0-4) Urine Squamous Epithelial Cells Mod /LPF Urine Amorphous Sediment Present /HPF Urine Bacteria 0 /HPF (0-FEW) Urine Mucus Slight /LPF Urine Opiates Screen Neg (NEG) Urine Methadone Screen Neg (NEG) Urine Barbiturates Neg (NEG) Urine Phencyclidine Screen Neg (NEG) Urine Amphetamine/Methamphetamine Pos (NEG) Urine Benzodiazepines Screen Neg (NEG) Urine Cocaine Screen Neg (NEG) Urine Cannabinoids Screen Neg (NEG) Urine Ethyl Alcohol Neg (NEG) White Blood Count 10.6 x10^3/uL (4.0-11.0) 25.3 x10^3/uL (4.0-11.0) H Red Blood Count 4.28 x10^6/uL (3.50-5.40) 4.21 x10^6/uL (3.50-5.40) Hemoglobin 11.8 g/dL (12.0-15.5) L 11.6 g/dL (12.0-15.5) L Hematocrit 34.9 % (36.0-47.0) L 36.9 % (36.0-47.0) Mean Corpuscular Volume 82 fL (79-100) 88 fL (79-100) # Mean Corpuscular Hemoglobin 28 pg (25-35) 28 pg (25-35) Mean Corpuscular Hemoglobin Concent 34 g/dL (31-37) 31 g/dL (31-37) Red Cell Distribution Width 14.3 % (11.5-14.5) 15.5 % (11.5-14.5) H Platelet Count 350 x10^3/uL (140-400) 451 x10^3/uL (140-400) H Neutrophils (%) (Auto) 91 % (31-73) H Lymphocytes (%) (Auto) 6 % (24-48) L Monocytes (%) (Auto) 2 % (0-9) Eosinophils (%) (Auto) 0 % (0-3) Basophils (%) (Auto) 0 % (0-3) Neutrophils # (Auto) 9.7 x10^3/uL (1.8-7.7) H Lymphocytes # (Auto) 0.7 x10^3/uL (1.0-4.8) L Monocytes # (Auto) 0.2 x10^3/uL (0.0-1.1) Eosinophils # (Auto) 0.0 x10^3/uL (0.0-0.7) Basophils # (Auto) 0.0 x10^3/uL (0.0-0.2) Prothrombin Time 13.1 SEC (11.7-14.0) Prothrombin Time INR 1.0 (0.8-1.1) Activated Partial Thromboplast Time 25 SEC (24-38) Sodium Level 139 mmol/L (136-145) Potassium Level 2.4 mmol/L (3.5-5.1) *L Chloride Level 103 mmol/L (98-107) Carbon Dioxide Level 20 mmol/L (21-32) L Anion Gap 16 (6-14) H Blood Urea Nitrogen 27 mg/dL (7-20) H Creatinine 0.5 mg/dL (0.6-1.0) L Estimated GFR (Cockcroft-Gault) 127.6 BUN/Creatinine Ratio 54 (6-20) H Glucose Level 100 mg/dL (70-99) H Calcium Level 9.5 mg/dL (8.5-10.1) Magnesium Level 1.4 mg/dL (1.8-2.4) L Total Bilirubin 8.0 mg/dL (0.2-1.0) H Aspartate Amino Transferase (AST) 138 U/L (15-37) H Alanine Aminotransferase (ALT) 157 U/L (14-59) H Alkaline Phosphatase 572 U/L (46-116) H Creatine Kinase 88 U/L (26-192) Troponin I High Sensitivity 16 ng/L (4-50) Total Protein 6.7 g/dL (6.4-8.2) Albumin 3.1 g/dL (3.4-5.0) L Albumin/Globulin Ratio 0.9 (1.0-1.7) L Lipase 142 U/L (73-393) Ethyl Alcohol Level < 10 mg/dL (0-10) O2 Saturation 96 % (92-99) Arterial Blood pH 7.03 (7.35-7.45) *L Arterial Blood pCO2 at Patient Temp 78 mmHg (35-46) *H Arterial Blood pO2 at Patient Temp 128 mmHg (75-108) H Arterial Blood HCO3 20 mmol/L (21-28) L Arterial Blood Base Excess -12 mmol/L (-3-3) L FiO2 50 (bipap) Test 09/20/21 02:06 09/20/21 07:39 09/20/21 09:48 O2 Saturation 95 % (92-99) 99 % (92-99) Arterial Blood pH 7.28 (7.35-7.45) L 7.35 (7.35-7.45) Arterial Blood pCO2 at Patient Temp 37 mmHg (35-46) 34 mmHg (35-46) L Arterial Blood pO2 at Patient Temp 84 mmHg (75-108) 196 mmHg (75-108) H Arterial Blood HCO3 17 mmol/L (21-28) L 18 mmol/L (21-28) L Arterial Blood Base Excess -9 mmol/L (-3-3) L -7 mmol/L (-3-3) L FiO2 55 55% vent White Blood Count 15.8 x10^3/uL (4.0-11.0) H Red Blood Count 3.97 x10^6/uL (3.50-5.40) Hemoglobin 10.8 g/dL (12.0-15.5) L Hematocrit 33.3 % (36.0-47.0) L Mean Corpuscular Volume 84 fL (79-100) Mean Corpuscular Hemoglobin 27 pg (25-35) Mean Corpuscular Hemoglobin Concent 32 g/dL (31-37) Red Cell Distribution Width 14.8 % (11.5-14.5) H Platelet Count 358 x10^3/uL (140-400) Neutrophils (%) (Auto) 83 % (31-73) H Lymphocytes (%) (Auto) 12 % (24-48) L Monocytes (%) (Auto) 5 % (0-9) Eosinophils (%) (Auto) 0 % (0-3) Basophils (%) (Auto) 0 % (0-3) Neutrophils # (Auto) 13.2 x10^3/uL (1.8-7.7) H Lymphocytes # (Auto) 1.8 x10^3/uL (1.0-4.8) Monocytes # (Auto) 0.8 x10^3/uL (0.0-1.1) Eosinophils # (Auto) 0.0 x10^3/uL (0.0-0.7) Basophils # (Auto) 0.0 x10^3/uL (0.0-0.2) Segmented Neutrophils % 68 % (35-66) H Band Neutrophils % 15 % (0-9) H Lymphocytes % 13 % (24-48) L Monocytes % 3 % (0-10) Metamyelocytes % 1 % (0-0) H Platelet Estimate Adequate (ADEQUATE) Sodium Level 148 mmol/L (136-145) H Potassium Level 3.3 mmol/L (3.5-5.1) L Chloride Level 114 mmol/L (98-107) H Carbon Dioxide Level 18 mmol/L (21-32) L Anion Gap 16 (6-14) H Blood Urea Nitrogen 21 mg/dL (7-20) H Creatinine 0.5 mg/dL (0.6-1.0) L Estimated GFR (Cockcroft-Gault) 127.6 BUN/Creatinine Ratio 42 (6-20) H Glucose Level 95 mg/dL (70-99) Calcium Level 8.5 mg/dL (8.5-10.1) Phosphorus Level 3.3 mg/dL (2.6-4.7) Magnesium Level 1.7 mg/dL (1.8-2.4) L Total Bilirubin 4.0 mg/dL (0.2-1.0) H Aspartate Amino Transferase (AST) 157 U/L (15-37) H Alanine Aminotransferase (ALT) 174 U/L (14-59) H Alkaline Phosphatase 391 U/L (46-116) H Total Protein 6.0 g/dL (6.4-8.2) L Albumin 2.5 g/dL (3.4-5.0) L Albumin/Globulin Ratio 0.7 (1.0-1.7) L Hepatitis A IgM Antibody Nonreactive (Nonreactive) Hepatitis B Surface Antigen Nonreactive (Nonreactive) Hepatitis B Core IgM Antibody Nonreactive (Nonreactive) Hepatitis C IgG Antibody Nonreactive (Nonreactive) Laboratory Tests 09/19/21 15:43 09/20/21 00:55 09/20/21 09:48 Laboratory Tests 09/19/21 15:43 09/20/21 09:48 ASSESSMENT/PLAN ASSESSMENT/PLAN 1. Obstructive jaundice with suspected choledocholithiasis: will need future ERCP. GS/GI following 2. Polysubstance abuse: with methamphetamines and ETOH 3. Hx of HTN 4. Encephalopathy: possible initial development of DT 5. S/P Cardiopulmonary arrest: noted asystole, unclear details and duration but suspected due to respiratory failure. Intubated with MV 6. Hypokalemia/hypomagnesemia 7. Dehydration 8. Arrhythmia: Brief period x1 with what appears to be brief AFIB RVR with abberant conduction that spontaneously converted to SR. multiple culprits as noted above 9. Fever/leukocytosis 10. Shock: multifactorial Recommendations 1. TTE, Lactic, troponin, EKG 2. Replace K and Mg. 3. Pressor support with levophed. Presently on versed and precedex and banana bag 4. Monitor rhythm, Could utilize lopressor for any sustained RVR. 5. Supportive care CHERELLE HUTCHINSON APRN Sep 20, 2021 14:49
[2021-09-20] MEDS ORDERED: MAGNESIUM SULFATE 2GM 50 ML IV ONE (15:15)
--- NOTE | 2021-09-20 15:29 | EKG ---
[facility] [address] [place] [address] Test Date: 2021-09-20 Test Time: 15:26:27 Pat Name: CALISTA PINTO Department: Room: 109 1 Gender: F [employer]: SHIVAM : 1965 Requested By: CHERELLE HUTCHINSON Order Number: [id number] Reading MD: Measurements Intervals [place] Rate: 99 P: 59 LA: 132 QRS: 34 QRSD: 80 T: 41 QT: 366 QTc: 469 Interpretive Statements SINUS RHYTHM NORMAL ECG RI6.02 No previous ECG available for comparison
[2021-09-20] MEDS: LACTOBACILLUS RHAMNOSUS GG 1 CAPSULE. PO SCH (20:48)
[2021-09-21] VITALS (28 sets, daily range): BP systolic 90–140; BP diastolic 42–76
[2021-09-21] MEDS: PIPERACILLIN/TAZOBACTAM 3.375 GM in IV NORMAL SALINE 50ML 50 ML IV SCH ×5 (00:23→23:42)
[2021-09-21] MEDS: ACETAMINOPHEN 650 MG/20.3 ML SOLUTION. PEG PRN ×4 (03:02→20:01)
[2021-09-21] MEDS: MIDAZOLAM 100mg/100ml NS BAG 100 ML IV PRN ×2 (05:50→20:01)
[2021-09-21] MEDS: HEPARIN for SUB-Q USE 5,000 UNIT/ML VIAL. SQ SCH ×3 (05:53→21:30)
--- NOTE | 2021-09-21 06:27 | PDOC ---
PULMONARY PROGRESS NOTES DATE: 09/21/21 TIME: 06:25 Subjective on vent sedated on versed fentanyl on levo Vitals Vital Signs Date Time Temp Pulse Resp B/P (MAP) Pulse Ox O2 Delivery O2 Flow Rate FiO2 09/21/21 06:00 102 20 93/47 100 Ventilator 09/21/21 04:00 99.1 99.1 09/21/21 02:25 15.0 Comments sedated on vent ros unable to obtain HEENT: Other (nc at perrl orally intubated nose clear neck no lad no thyromegaly) Lungs: Crackles Cardiovascular: S1, S2 Abdomen: Soft, Non-tender, Other (no mass) Extremities: No Edema Skin: Warm Labs Laboratory Tests Test 09/19/21 15:16 09/19/21 15:43 09/19/21 23:44 09/20/21 00:55 Urine Collection Type Void Urine Color (Auto) Dark yellow Urine Turbidity Clear Urine pH (Auto) 6.0 (<5.0-8.0) Urine Specific [place] 1.028 (1.000-1.030) Urine Protein (Auto) 30 mg/dL (Negative) Urine Glucose (Auto)(UA) Negative mg/dL (Negative) Urine Ketones (Auto) 10 mg/dL (Negative) Urine Blood (Auto) Negative (Negative) Urine Nitrite Negative (Negative) Urine Bilirubin (Auto) Moderate (Negative) Urine Urobilinogen (Auto) 6 mg/dL (Normal) Urine Leukocyte Esterase (Auto) Negative (Negative) Urine RBC 3-5 /HPF (0-2) Urine WBC 1-4 /HPF (0-4) Urine Squamous Epithelial Cells Mod /LPF Urine Amorphous Sediment Present /HPF Urine Bacteria 0 /HPF (0-FEW) Urine Mucus Slight /LPF Urine Opiates Screen Neg (NEG) Urine Methadone Screen Neg (NEG) Urine Barbiturates Neg (NEG) Urine Phencyclidine Screen Neg (NEG) Urine Amphetamine/Methamphetamine Pos (NEG) Urine Benzodiazepines Screen Neg (NEG) Urine Cocaine Screen Neg (NEG) Urine Cannabinoids Screen Neg (NEG) Urine Ethyl Alcohol Neg (NEG) White Blood Count 10.6 x10^3/uL (4.0-11.0) 25.3 x10^3/uL (4.0-11.0) Red Blood Count 4.28 x10^6/uL (3.50-5.40) 4.21 x10^6/uL (3.50-5.40) Hemoglobin 11.8 g/dL (12.0-15.5) 11.6 g/dL (12.0-15.5) Hematocrit 34.9 % (36.0-47.0) 36.9 % (36.0-47.0) Mean Corpuscular Volume 82 fL (79-100) 88 fL (79-100) Mean Corpuscular Hemoglobin 28 pg (25-35) 28 pg (25-35) Mean Corpuscular Hemoglobin Concent 34 g/dL (31-37) 31 g/dL (31-37) Red Cell Distribution Width 14.3 % (11.5-14.5) 15.5 % (11.5-14.5) Platelet Count 350 x10^3/uL (140-400) 451 x10^3/uL (140-400) Neutrophils (%) (Auto) 91 % (31-73) Lymphocytes (%) (Auto) 6 % (24-48) Monocytes (%) (Auto) 2 % (0-9) Eosinophils (%) (Auto) 0 % (0-3) Basophils (%) (Auto) 0 % (0-3) Neutrophils # (Auto) 9.7 x10^3/uL (1.8-7.7) Lymphocytes # (Auto) 0.7 x10^3/uL (1.0-4.8) Monocytes # (Auto) 0.2 x10^3/uL (0.0-1.1) Eosinophils # (Auto) 0.0 x10^3/uL (0.0-0.7) Basophils # (Auto) 0.0 x10^3/uL (0.0-0.2) Prothrombin Time 13.1 SEC (11.7-14.0) Prothromb Time International Ratio 1.0 (0.8-1.1) Activated Partial Thromboplast Time 25 SEC (24-38) Sodium Level 139 mmol/L (136-145) Potassium Level 2.4 mmol/L (3.5-5.1) Chloride Level 103 mmol/L (98-107) Carbon Dioxide Level 20 mmol/L (21-32) Anion Gap 16 (6-14) Blood Urea Nitrogen 27 mg/dL (7-20) Creatinine 0.5 mg/dL (0.6-1.0) Estimated GFR (Cockcroft-Gault) 127.6 BUN/Creatinine Ratio 54 (6-20) Glucose Level 100 mg/dL (70-99) Calcium Level 9.5 mg/dL (8.5-10.1) Magnesium Level 1.4 mg/dL (1.8-2.4) Total Bilirubin 8.0 mg/dL (0.2-1.0) Aspartate Amino Transf (AST/SGOT) 138 U/L (15-37) Alanine Aminotransferase (ALT/SGPT) 157 U/L (14-59) Alkaline Phosphatase 572 U/L (46-116) Creatine Kinase 88 U/L (26-192) Troponin I High Sensitivity 16 ng/L (4-50) Total Protein 6.7 g/dL (6.4-8.2) Albumin 3.1 g/dL (3.4-5.0) Albumin/Globulin Ratio 0.9 (1.0-1.7) Lipase 142 U/L (73-393) Ethyl Alcohol Level < 10 mg/dL (0-10) O2 Saturation 96 % (92-99) Arterial Blood pH 7.03 (7.35-7.45) Arterial Blood pCO2 at Patient Temp 78 mmHg (35-46) Arterial Blood pO2 at Patient Temp 128 mmHg (75-108) Arterial Blood HCO3 20 mmol/L (21-28) Arterial Blood Base Excess -12 mmol/L (-3-3) FiO2 50 (bipap) Test 09/20/21 02:06 09/20/21 07:39 09/20/21 09:48 09/20/21 15:00 O2 Saturation 95 % (92-99) 99 % (92-99) Arterial Blood pH 7.28 (7.35-7.45) 7.35 (7.35-7.45) Arterial Blood pCO2 at Patient Temp 37 mmHg (35-46) 34 mmHg (35-46) Arterial Blood pO2 at Patient Temp 84 mmHg (75-108) 196 mmHg (75-108) Arterial Blood HCO3 17 mmol/L (21-28) 18 mmol/L (21-28) Arterial Blood Base Excess -9 mmol/L (-3-3) -7 mmol/L (-3-3) FiO2 55 55% vent White Blood Count 15.8 x10^3/uL (4.0-11.0) Red Blood Count 3.97 x10^6/uL (3.50-5.40) Hemoglobin 10.8 g/dL (12.0-15.5) Hematocrit 33.3 % (36.0-47.0) Mean Corpuscular Volume 84 fL (79-100) Mean Corpuscular Hemoglobin 27 pg (25-35) Mean Corpuscular Hemoglobin Concent 32 g/dL (31-37) Red Cell Distribution Width 14.8 % (11.5-14.5) Platelet Count 358 x10^3/uL (140-400) Neutrophils (%) (Auto) 83 % (31-73) Lymphocytes (%) (Auto) 12 % (24-48) Monocytes (%) (Auto) 5 % (0-9) Eosinophils (%) (Auto) 0 % (0-3) Basophils (%) (Auto) 0 % (0-3) Neutrophils # (Auto) 13.2 x10^3/uL (1.8-7.7) Lymphocytes # (Auto) 1.8 x10^3/uL (1.0-4.8) Monocytes # (Auto) 0.8 x10^3/uL (0.0-1.1) Eosinophils # (Auto) 0.0 x10^3/uL (0.0-0.7) Basophils # (Auto) 0.0 x10^3/uL (0.0-0.2) Segmented Neutrophils % 68 % (35-66) Band Neutrophils % 15 % (0-9) Lymphocytes % 13 % (24-48) Monocytes % 3 % (0-10) Metamyelocytes % 1 % (0-0) Platelet Estimate Adequate (ADEQUATE) Sodium Level 148 mmol/L (136-145) Potassium Level 3.3 mmol/L (3.5-5.1) Chloride Level 114 mmol/L (98-107) Carbon Dioxide Level 18 mmol/L (21-32) Anion Gap 16 (6-14) Blood Urea Nitrogen 21 mg/dL (7-20) Creatinine 0.5 mg/dL (0.6-1.0) Estimated GFR (Cockcroft-Gault) 127.6 BUN/Creatinine Ratio 42 (6-20) Glucose Level 95 mg/dL (70-99) Calcium Level 8.5 mg/dL (8.5-10.1) Phosphorus Level 3.3 mg/dL (2.6-4.7) Magnesium Level 1.7 mg/dL (1.8-2.4) Total Bilirubin 4.0 mg/dL (0.2-1.0) Aspartate Amino Transf (AST/SGOT) 157 U/L (15-37) Alanine Aminotransferase (ALT/SGPT) 174 U/L (14-59) Alkaline Phosphatase 391 U/L (46-116) Total Protein 6.0 g/dL (6.4-8.2) Albumin 2.5 g/dL (3.4-5.0) Albumin/Globulin Ratio 0.7 (1.0-1.7) Hepatitis A IgM Antibody Nonreactive (Nonreactive) Hepatitis B Surface Antigen Nonreactive (Nonreactive) Hepatitis B Core IgM Antibody Nonreactive (Nonreactive) Hepatitis C IgG Antibody Nonreactive (Nonreactive) Lactic Acid Level 0.7 mmol/L (0.4-2.0) Troponin I High Sensitivity 179 ng/L (4-50) Laboratory Tests Test 09/20/21 07:39 09/20/21 09:48 09/20/21 15:00 O2 Saturation 99 % (92-99) Arterial Blood pH 7.35 (7.35-7.45) Arterial Blood pCO2 at Patient Temp 34 mmHg (35-46) Arterial Blood pO2 at Patient Temp 196 mmHg (75-108) Arterial Blood HCO3 18 mmol/L (21-28) Arterial Blood Base Excess -7 mmol/L (-3-3) FiO2 55% vent White Blood Count 15.8 x10^3/uL (4.0-11.0) Red Blood Count 3.97 x10^6/uL (3.50-5.40) Hemoglobin 10.8 g/dL (12.0-15.5) Hematocrit 33.3 % (36.0-47.0) Mean Corpuscular Volume 84 fL (79-100) Mean Corpuscular Hemoglobin 27 pg (25-35) Mean Corpuscular Hemoglobin Concent 32 g/dL (31-37) Red Cell Distribution Width 14.8 % (11.5-14.5) Platelet Count 358 x10^3/uL (140-400) Neutrophils (%) (Auto) 83 % (31-73) Lymphocytes (%) (Auto) 12 % (24-48) Monocytes (%) (Auto) 5 % (0-9) Eosinophils (%) (Auto) 0 % (0-3) Basophils (%) (Auto) 0 % (0-3) Neutrophils # (Auto) 13.2 x10^3/uL (1.8-7.7) Lymphocytes # (Auto) 1.8 x10^3/uL (1.0-4.8) Monocytes # (Auto) 0.8 x10^3/uL (0.0-1.1) Eosinophils # (Auto) 0.0 x10^3/uL (0.0-0.7) Basophils # (Auto) 0.0 x10^3/uL (0.0-0.2) Segmented Neutrophils % 68 % (35-66) Band Neutrophils % 15 % (0-9) Lymphocytes % 13 % (24-48) Monocytes % 3 % (0-10) Metamyelocytes % 1 % (0-0) Platelet Estimate Adequate (ADEQUATE) Sodium Level 148 mmol/L (136-145) Potassium Level 3.3 mmol/L (3.5-5.1) Chloride Level 114 mmol/L (98-107) Carbon Dioxide Level 18 mmol/L (21-32) Anion Gap 16 (6-14) Blood Urea Nitrogen 21 mg/dL (7-20) Creatinine 0.5 mg/dL (0.6-1.0) Estimated GFR (Cockcroft-Gault) 127.6 BUN/Creatinine Ratio 42 (6-20) Glucose Level 95 mg/dL (70-99) Calcium Level 8.5 mg/dL (8.5-10.1) Phosphorus Level 3.3 mg/dL (2.6-4.7) Magnesium Level 1.7 mg/dL (1.8-2.4) Total Bilirubin 4.0 mg/dL (0.2-1.0) Aspartate Amino Transf (AST/SGOT) 157 U/L (15-37) Alanine Aminotransferase (ALT/SGPT) 174 U/L (14-59) Alkaline Phosphatase 391 U/L (46-116) Total Protein 6.0 g/dL (6.4-8.2) Albumin 2.5 g/dL (3.4-5.0) Albumin/Globulin Ratio 0.7 (1.0-1.7) Hepatitis A IgM Antibody Nonreactive (Nonreactive) Hepatitis B Surface Antigen Nonreactive (Nonreactive) Hepatitis B Core IgM Antibody Nonreactive (Nonreactive) Hepatitis C IgG Antibody Nonreactive (Nonreactive) Lactic Acid Level 0.7 mmol/L (0.4-2.0) Troponin I High Sensitivity 179 ng/L (4-50) Medications Active Scripts Medications Dose Route/Sig Max Daily Dose Days Date Category Ibuprofen 800 Mg Tablet 800 Mg PO PRN Q6HRS PRN 09/19/21 Reported Acetaminophen 500 Mg Tablet 1,000 Mg PO PRN Q6HRS PRN 09/19/21 Reported Omeprazole 40 Mg Capsule.dr 40 Mg PO DAILY 09/19/21 Reported Comments cxr 09/20 reviewed Interval intubation with the endotracheal tube terminating approximately 3.6 cm above the barb and placement of enteric tube extending into the stomach with tip beyond the limit of the image. Improved aeration of the bilateral lungs with mild residual patchy airspace disease in the right lower lung zone. No evidence of pleural effusion or pneumothorax. Stable heart size. Impression . IMPRESSION: 1. Acute hypercapnic respiratory failure secondary to toxic encephalopathy from the effect of Ativan and morphine resulting in acute hypercapnia and respiratory arrest. She had brief asystole as well. Now, arterial blood gases showing complete resolution of hypercapnia. 2. History of meth use and heavy alcohol use. 3. Abnormal CT abdomen and pelvis with evidence of choledocholithiasis or mass. GI is following. ERCP is recommended. 4. Leukocytosis. 5. Hypokalemia, currently being corrected. 6. Hyperbilirubinemia along with abnormal transaminases. 7. Moderate protein-calorie malnutrition. 8. History of tobaccoism. 9. Shock, combination of hypovolemic as well as medication related. Currently, blood pressure is stable. Plan . RECOMMENDATIONS: 1. cont vent support setting reviewed not ready for sbt 2. reviewed ABGs cxr 3. Continue broad-spectrum antibiotics. 4. elevate hob 5. Continue with PPI. 6. Continue with sedation. 7. pressors to keep map 60 8. Heparin for DVT prophylaxis. 9. Discussed with RN and RT. Chart reviewed. Imaging studies reviewed. RG MONTOYA MD Sep 21, 2021 06:27
[2021-09-21] MEDS: SENNOSIDES/DOCUSATE 8.6/50MG TABLET. PO SCH ×2 (08:57→21:00)
[2021-09-21] MEDS: MULTIVIT INFUSN,ADULT 4,VIT K 10 ML, THIAMINE INJ 100 MG, FOLIC ACID INJ 1 MG in IV NOR... IV SCH (08:58)
[2021-09-21] MEDS: PANTOPRAZOLE IV PUSH 40 MG VIAL. IVP SCH (08:59)
[2021-09-21] MEDS: LACTOBACILLUS RHAMNOSUS GG 1 CAPSULE. PO SCH ×2 (09:00→21:00)
[2021-09-21 09:31] LABS: BASE EXCESS ABG -5 mmol/L (-3-3); HCO3 ABG 20 mmol/L (21-28); PCO2 ABG 37 mmHg (35-46); PO2 ABG 108 mmHg (75-108); SAT O2 ABG 98 % (92-99)
[2021-09-21 09:32] LABS: FIO2 ABG 35% AC 20 500 5
--- NOTE | 2021-09-21 09:43 | PDOC ---
SURGICAL PROGRESS NOTE DATE: 09/21/21 TIME: 09:40 Subjective Pt intubated and sedated Vital Signs Vital Signs Date Time Temp Pulse Resp B/P (MAP) Pulse Ox O2 Delivery O2 Flow Rate FiO2 09/21/21 09:22 100 Ventilator 09/21/21 06:00 102 20 93/47 09/21/21 04:00 99.1 99.1 09/21/21 02:25 15.0 I&O Intake and Output 09/21/21 07:00 Intake Total 3239.05 ml Output Total 1250 ml Balance 1989.05 ml Intake Oral 0 ml IV Total 3239.05 ml Output Urine Total 1250 ml Abdomen: Soft, No tenderness Labs Laboratory Tests Test 09/19/21 15:16 09/19/21 15:43 09/19/21 23:44 09/20/21 00:55 Urine Collection Type Void Urine Color (Auto) Dark yellow Urine Turbidity Clear Urine pH (Auto) 6.0 (<5.0-8.0) Urine Specific [place] 1.028 (1.000-1.030) Urine Protein (Auto) 30 mg/dL (Negative) Urine Glucose (Auto)(UA) Negative mg/dL (Negative) Urine Ketones (Auto) 10 mg/dL (Negative) Urine Blood (Auto) Negative (Negative) Urine Nitrite Negative (Negative) Urine Bilirubin (Auto) Moderate (Negative) Urine Urobilinogen (Auto) 6 mg/dL (Normal) Urine Leukocyte Esterase (Auto) Negative (Negative) Urine RBC 3-5 /HPF (0-2) Urine WBC 1-4 /HPF (0-4) Urine Squamous Epithelial Cells Mod /LPF Urine Amorphous Sediment Present /HPF Urine Bacteria 0 /HPF (0-FEW) Urine Mucus Slight /LPF Urine Opiates Screen Neg (NEG) Urine Methadone Screen Neg (NEG) Urine Barbiturates Neg (NEG) Urine Phencyclidine Screen Neg (NEG) Urine Amphetamine/Methamphetamine Pos (NEG) Urine Benzodiazepines Screen Neg (NEG) Urine Cocaine Screen Neg (NEG) Urine Cannabinoids Screen Neg (NEG) Urine Ethyl Alcohol Neg (NEG) White Blood Count 10.6 x10^3/uL (4.0-11.0) 25.3 x10^3/uL (4.0-11.0) Red Blood Count 4.28 x10^6/uL (3.50-5.40) 4.21 x10^6/uL (3.50-5.40) Hemoglobin 11.8 g/dL (12.0-15.5) 11.6 g/dL (12.0-15.5) Hematocrit 34.9 % (36.0-47.0) 36.9 % (36.0-47.0) Mean Corpuscular Volume 82 fL (79-100) 88 fL (79-100) Mean Corpuscular Hemoglobin 28 pg (25-35) 28 pg (25-35) Mean Corpuscular Hemoglobin Concent 34 g/dL (31-37) 31 g/dL (31-37) Red Cell Distribution Width 14.3 % (11.5-14.5) 15.5 % (11.5-14.5) Platelet Count 350 x10^3/uL (140-400) 451 x10^3/uL (140-400) Neutrophils (%) (Auto) 91 % (31-73) Lymphocytes (%) (Auto) 6 % (24-48) Monocytes (%) (Auto) 2 % (0-9) Eosinophils (%) (Auto) 0 % (0-3) Basophils (%) (Auto) 0 % (0-3) Neutrophils # (Auto) 9.7 x10^3/uL (1.8-7.7) Lymphocytes # (Auto) 0.7 x10^3/uL (1.0-4.8) Monocytes # (Auto) 0.2 x10^3/uL (0.0-1.1) Eosinophils # (Auto) 0.0 x10^3/uL (0.0-0.7) Basophils # (Auto) 0.0 x10^3/uL (0.0-0.2) Prothrombin Time 13.1 SEC (11.7-14.0) Prothromb Time International Ratio 1.0 (0.8-1.1) Activated Partial Thromboplast Time 25 SEC (24-38) Sodium Level 139 mmol/L (136-145) Potassium Level 2.4 mmol/L (3.5-5.1) Chloride Level 103 mmol/L (98-107) Carbon Dioxide Level 20 mmol/L (21-32) Anion Gap 16 (6-14) Blood Urea Nitrogen 27 mg/dL (7-20) Creatinine 0.5 mg/dL (0.6-1.0) Estimated GFR (Cockcroft-Gault) 127.6 BUN/Creatinine Ratio 54 (6-20) Glucose Level 100 mg/dL (70-99) Calcium Level 9.5 mg/dL (8.5-10.1) Magnesium Level 1.4 mg/dL (1.8-2.4) Total Bilirubin 8.0 mg/dL (0.2-1.0) Aspartate Amino Transf (AST/SGOT) 138 U/L (15-37) Alanine Aminotransferase (ALT/SGPT) 157 U/L (14-59) Alkaline Phosphatase 572 U/L (46-116) Creatine Kinase 88 U/L (26-192) Troponin I High Sensitivity 16 ng/L (4-50) Total Protein 6.7 g/dL (6.4-8.2) Albumin 3.1 g/dL (3.4-5.0) Albumin/Globulin Ratio 0.9 (1.0-1.7) Lipase 142 U/L (73-393) Ethyl Alcohol Level < 10 mg/dL (0-10) O2 Saturation 96 % (92-99) Arterial Blood pH 7.03 (7.35-7.45) Arterial Blood pCO2 at Patient Temp 78 mmHg (35-46) Arterial Blood pO2 at Patient Temp 128 mmHg (75-108) Arterial Blood HCO3 20 mmol/L (21-28) Arterial Blood Base Excess -12 mmol/L (-3-3) FiO2 50 (bipap) Test 09/20/21 02:06 09/20/21 07:39 09/20/21 09:48 09/20/21 15:00 O2 Saturation 95 % (92-99) 99 % (92-99) Arterial Blood pH 7.28 (7.35-7.45) 7.35 (7.35-7.45) Arterial Blood pCO2 at Patient Temp 37 mmHg (35-46) 34 mmHg (35-46) Arterial Blood pO2 at Patient Temp 84 mmHg (75-108) 196 mmHg (75-108) Arterial Blood HCO3 17 mmol/L (21-28) 18 mmol/L (21-28) Arterial Blood Base Excess -9 mmol/L (-3-3) -7 mmol/L (-3-3) FiO2 55 55% vent White Blood Count 15.8 x10^3/uL (4.0-11.0) Red Blood Count 3.97 x10^6/uL (3.50-5.40) Hemoglobin 10.8 g/dL (12.0-15.5) Hematocrit 33.3 % (36.0-47.0) Mean Corpuscular Volume 84 fL (79-100) Mean Corpuscular Hemoglobin 27 pg (25-35) Mean Corpuscular Hemoglobin Concent 32 g/dL (31-37) Red Cell Distribution Width 14.8 % (11.5-14.5) Platelet Count 358 x10^3/uL (140-400) Neutrophils (%) (Auto) 83 % (31-73) Lymphocytes (%) (Auto) 12 % (24-48) Monocytes (%) (Auto) 5 % (0-9) Eosinophils (%) (Auto) 0 % (0-3) Basophils (%) (Auto) 0 % (0-3) Neutrophils # (Auto) 13.2 x10^3/uL (1.8-7.7) Lymphocytes # (Auto) 1.8 x10^3/uL (1.0-4.8) Monocytes # (Auto) 0.8 x10^3/uL (0.0-1.1) Eosinophils # (Auto) 0.0 x10^3/uL (0.0-0.7) Basophils # (Auto) 0.0 x10^3/uL (0.0-0.2) Segmented Neutrophils % 68 % (35-66) Band Neutrophils % 15 % (0-9) Lymphocytes % 13 % (24-48) Monocytes % 3 % (0-10) Metamyelocytes % 1 % (0-0) Platelet Estimate Adequate (ADEQUATE) Sodium Level 148 mmol/L (136-145) Potassium Level 3.3 mmol/L (3.5-5.1) Chloride Level 114 mmol/L (98-107) Carbon Dioxide Level 18 mmol/L (21-32) Anion Gap 16 (6-14) Blood Urea Nitrogen 21 mg/dL (7-20) Creatinine 0.5 mg/dL (0.6-1.0) Estimated GFR (Cockcroft-Gault) 127.6 BUN/Creatinine Ratio 42 (6-20) Glucose Level 95 mg/dL (70-99) Calcium Level 8.5 mg/dL (8.5-10.1) Phosphorus Level 3.3 mg/dL (2.6-4.7) Magnesium Level 1.7 mg/dL (1.8-2.4) Total Bilirubin 4.0 mg/dL (0.2-1.0) Aspartate Amino Transf (AST/SGOT) 157 U/L (15-37) Alanine Aminotransferase (ALT/SGPT) 174 U/L (14-59) Alkaline Phosphatase 391 U/L (46-116) Total Protein 6.0 g/dL (6.4-8.2) Albumin 2.5 g/dL (3.4-5.0) Albumin/Globulin Ratio 0.7 (1.0-1.7) Hepatitis A IgM Antibody Nonreactive (Nonreactive) Hepatitis B Surface Antigen Nonreactive (Nonreactive) Hepatitis B Core IgM Antibody Nonreactive (Nonreactive) Hepatitis C IgG Antibody Nonreactive (Nonreactive) Lactic Acid Level 0.7 mmol/L (0.4-2.0) Troponin I High Sensitivity 179 ng/L (4-50) Test 09/21/21 07:30 O2 Saturation 98 % (92-99) Arterial Blood pH 7.36 (7.35-7.45) Arterial Blood pCO2 at Patient Temp 37 mmHg (35-46) Arterial Blood pO2 at Patient Temp 108 mmHg (75-108) Arterial Blood HCO3 20 mmol/L (21-28) Arterial Blood Base Excess -5 mmol/L (-3-3) FiO2 35% ac 20 500 5 Laboratory Tests Test 09/20/21 09:48 09/20/21 15:00 09/21/21 07:30 White Blood Count 15.8 x10^3/uL (4.0-11.0) Red Blood Count 3.97 x10^6/uL (3.50-5.40) Hemoglobin 10.8 g/dL (12.0-15.5) Hematocrit 33.3 % (36.0-47.0) Mean Corpuscular Volume 84 fL (79-100) Mean Corpuscular Hemoglobin 27 pg (25-35) Mean Corpuscular Hemoglobin Concent 32 g/dL (31-37) Red Cell Distribution Width 14.8 % (11.5-14.5) Platelet Count 358 x10^3/uL (140-400) Neutrophils (%) (Auto) 83 % (31-73) Lymphocytes (%) (Auto) 12 % (24-48) Monocytes (%) (Auto) 5 % (0-9) Eosinophils (%) (Auto) 0 % (0-3) Basophils (%) (Auto) 0 % (0-3) Neutrophils # (Auto) 13.2 x10^3/uL (1.8-7.7) Lymphocytes # (Auto) 1.8 x10^3/uL (1.0-4.8) Monocytes # (Auto) 0.8 x10^3/uL (0.0-1.1) Eosinophils # (Auto) 0.0 x10^3/uL (0.0-0.7) Basophils # (Auto) 0.0 x10^3/uL (0.0-0.2) Segmented Neutrophils % 68 % (35-66) Band Neutrophils % 15 % (0-9) Lymphocytes % 13 % (24-48) Monocytes % 3 % (0-10) Metamyelocytes % 1 % (0-0) Platelet Estimate Adequate (ADEQUATE) Sodium Level 148 mmol/L (136-145) Potassium Level 3.3 mmol/L (3.5-5.1) Chloride Level 114 mmol/L (98-107) Carbon Dioxide Level 18 mmol/L (21-32) Anion Gap 16 (6-14) Blood Urea Nitrogen 21 mg/dL (7-20) Creatinine 0.5 mg/dL (0.6-1.0) Estimated GFR (Cockcroft-Gault) 127.6 BUN/Creatinine Ratio 42 (6-20) Glucose Level 95 mg/dL (70-99) Calcium Level 8.5 mg/dL (8.5-10.1) Phosphorus Level 3.3 mg/dL (2.6-4.7) Magnesium Level 1.7 mg/dL (1.8-2.4) Total Bilirubin 4.0 mg/dL (0.2-1.0) Aspartate Amino Transf (AST/SGOT) 157 U/L (15-37) Alanine Aminotransferase (ALT/SGPT) 174 U/L (14-59) Alkaline Phosphatase 391 U/L (46-116) Total Protein 6.0 g/dL (6.4-8.2) Albumin 2.5 g/dL (3.4-5.0) Albumin/Globulin Ratio 0.7 (1.0-1.7) Hepatitis A IgM Antibody Nonreactive (Nonreactive) Hepatitis B Surface Antigen Nonreactive (Nonreactive) Hepatitis B Core IgM Antibody Nonreactive (Nonreactive) Hepatitis C IgG Antibody Nonreactive (Nonreactive) Lactic Acid Level 0.7 mmol/L (0.4-2.0) Troponin I High Sensitivity 179 ng/L (4-50) O2 Saturation 98 % (92-99) Arterial Blood pH 7.36 (7.35-7.45) Arterial Blood pCO2 at Patient Temp 37 mmHg (35-46) Arterial Blood pO2 at Patient Temp 108 mmHg (75-108) Arterial Blood HCO3 20 mmol/L (21-28) Arterial Blood Base Excess -5 mmol/L (-3-3) FiO2 35% ac 20 500 5 Problem List Problems Medical Problems: (1) Cholecystitis, acute with cholelithiasis Status: Acute (2) Choledocholithiasis Status: Acute (3) Hyperbilirubinemia Status: Acute (4) Obstructive jaundice Status: Acute (5) Transaminitis Status: Acute Assessment/Plan obstructive jaundice appears improved in this portion remains prohibitive candidate for additional investigation or surgery, given cardiopulmonary standpoint. Justicifation of Admission Dx: Justifications for Admission: Justification of Admission Dx: Yes Respiratory Failure: Mechanical Ventilation ISAEL JOHNSON MD Sep 21, 2021 09:43
[2021-09-21] MEDS ORDERED: ELECTROLYTE (ICU) PROTOCOL. MC PRN (09:45)
[2021-09-21] MEDS ORDERED: MAGNESIUM SULFATE 4GM 100 ML IV ONE (10:00)
--- NOTE | 2021-09-21 11:04 | PDOC ---
PROGRESS NOTES Date of Service: DATE: 09/21/21 TIME: 11:04 Subjective Subjective Intubated, on pressor support Objective Objective Vital Signs Date Time Temp Pulse Resp B/P (MAP) Pulse Ox O2 Delivery O2 Flow Rate FiO2 09/21/21 10:09 100 09/21/21 09:30 102 122/52 Ventilator 09/21/21 08:00 101.2 101.2 09/21/21 06:00 20 09/21/21 02:25 15.0 l Intake and Output 09/21/21 07:00 Intake Total 3239.05 ml Output Total 1250 ml Balance 1989.05 ml Intake Oral 0 ml IV Total 3239.05 ml Output Urine Total 1250 ml Physical Exam Abdomen: Soft, No tenderness Heart: Regular rate (SR) Extremities: No clubbing, No cyanosis General: Other (intubated) HEENT: Atraumatic, Mucous membr. moist/pink Lungs: Other (intubated with MV) Psych/Mental Status: Other (sedated) Skin: No breakdown Assessment Assessment 1. Obstructive jaundice with suspected choledocholithiasis: will need future ERCP. GS/GI following 2. Polysubstance abuse: with methamphetamines and ETOH 3. Hx of HTN 4. Encephalopathy: possible initial development of DT 5. S/P Cardiopulmonary arrest: noted asystole, unclear details and duration but suspected due to respiratory failure. Intubated with MV 6. Hypokalemia/hypomagnesemia 7. Dehydration 8. Arrhythmia: Brief period x1 with what appears to be brief AFIB RVR with aberrant conduction that spontaneously converted to SR. multiple culprits as noted above - no further episodes on tele 9. Fever/leukocytosis 10. Shock: multifactorial Recommendations 1. TTE pending 2. Pressor support with levophed. Presently on versed and precedex and banana bag 4. Supportive care Plan Plan of Care Problems Medical Problems: (1) Cholecystitis, acute with cholelithiasis Status: Acute (2) Choledocholithiasis Status: Acute (3) Hyperbilirubinemia Status: Acute (4) Obstructive jaundice Status: Acute (5) Transaminitis Status: Acute Comment Review of Relevant I have reviewed the following items michael (where applicable) has been applied. Labs Laboratory Tests Test 09/20/21 15:00 09/21/21 07:30 Lactic Acid Level 0.7 mmol/L (0.4-2.0) Troponin I High Sensitivity 179 ng/L (4-50) O2 Saturation 98 % (92-99) Arterial Blood pH 7.36 (7.35-7.45) Arterial Blood pCO2 at Patient Temp 37 mmHg (35-46) Arterial Blood pO2 at Patient Temp 108 mmHg (75-108) Arterial Blood HCO3 20 mmol/L (21-28) Arterial Blood Base Excess -5 mmol/L (-3-3) FiO2 35% ac 20 500 5 Microbiology 09/20/21 Blood Culture - Preliminary, Resulted NO GROWTH AFTER 1 DAY Medications Current Medications Acetaminophen (Tylenol) 650 mg PRN Q6HRS PRN PEG MILD PAIN / TEMP > 100.3'F Last administered on 09/21/21at 08:57; Start 09/20/21 at 13:30 Folic Acid (Folic Acid) 1 mg DAILY PO ; Start 09/24/21 at 09:00 Info ([facility] Electrolyte Protocol) 1 ea CONT PRN PRN MC PER PROTOCOL; Start 09/21/21 at 09:45 Lactobacillus Rhamnosus (Culturelle) 1 cap BID PO ; Start 09/20/21 at 21:00 Magnesium Sulfate 50 ml @ 25 mls/hr 1X ONCE IV Last administered on 09/20/21at 15:22; Start 09/20/21 at 15:15; Stop 09/20/21 at 17:14; Status DC Magnesium Sulfate 100 ml @ 25 mls/hr 1X ONCE IV Last administered on 09/21/21at 10:11; Start 09/21/21 at 10:00; Stop 09/21/21 at 13:59 Multivitamins (Thera M Plus) 1 tab DAILY PO ; Start 09/24/21 at 09:00 Potassium Chloride/Water 100 ml @ 100 mls/hr Q1H IV Last administered on 09/20/21at 15:22; Start 09/20/21 at 12:00; Stop 09/20/21 at 15:59; Status DC Thiamine Mononitrate (Vitamin B-1) 100 mg DAILY PO ; Start 09/24/21 at 09:00 Vitals/I & O Vital Sign - Last 24 Hours 09/20/21 09/20/21 09/20/21 09/20/21 11:30 12:00 12:00 12:39 Pulse 100 91 Resp 20 B/P (MAP) 128/49 119/47 (71) Pulse Ox 100 100 O2 Delivery Ventilator Mechanical Ventilator Ventilator 09/20/21 09/20/21 09/20/21 09/20/21 13:00 14:00 14:12 14:52 Temp 100.9 100.9 Pulse 100 95 Resp B/P (MAP) 141/56 120/51 Pulse Ox 100 100 100 100 O2 Delivery Ventilator Ventilator Ventilator Ventilator 09/20/21 09/20/21 09/20/21 09/20/21 15:00 15:22 16:00 16:00 Pulse 96 95 Resp B/P (MAP) 116/47 108/44 Pulse Ox 100 100 100 O2 Delivery Ventilator Ventilator Mechanical Ventilator Ventilator 09/20/21 09/20/21 09/20/21 09/20/21 16:00 16:03 17:00 18:00 Temp 99.9 99.9 Pulse 94 98 96 B/P (MAP) 121/50 (73) 115/49 97/47 Pulse Ox 100 100 100 O2 Delivery Ventilator Ventilator Ventilator 09/20/21 09/20/21 09/20/21 09/20/21 18:06 18:30 19:00 19:40 Pulse 96 107 B/P (MAP) 95/41 103/50 Pulse Ox 100 100 100 100 O2 Delivery Ventilator Ventilator Ventilator Ventilator 09/20/21 09/20/21 09/20/21 09/20/21 20:00 20:00 20:00 21:00 Temp 98.4 98.4 Pulse 107 94 107 B/P (MAP) 129/53 121/50 (73) 131/80 Pulse Ox 100 97 O2 Delivery Ventilator Mechanical Ventilator Ventilator 09/20/21 09/20/21 09/20/21 09/20/21 21:50 22:00 23:00 23:30 Pulse 112 118 Resp B/P (MAP) 138/53 138/56 134/52 Pulse Ox 100 100 100 O2 Delivery Ventilator Ventilator Ventilator 09/20/21 09/20/21 09/21/21 09/21/21 23:45 23:59 00:00 00:00 Pulse 94 114 Resp B/P (MAP) 128/55 118/52 (74) 121/52 Pulse Ox 99 100 O2 Delivery Ventilator Ventilator 09/21/21 09/21/21 09/21/21 09/21/21 00:00 00:27 01:00 01:55 Pulse 112 Resp B/P (MAP) 123/76 Pulse Ox 99 100 99 O2 Delivery Mechanical Ventilator Ventilator Ventilator O2 Flow Rate 15.0 09/21/21 09/21/21 09/21/21 09/21/21 02:00 02:15 02:25 03:00 Temp 98.1 100.0 98.1 100.0 Pulse 113 114 Resp 22 B/P (MAP) 130/64 122/50 123/48 Pulse Ox 100 99 100 O2 Delivery Ventilator Ventilator O2 Flow Rate 15.0 09/21/21 09/21/21 09/21/21 09/21/21 03:40 04:00 04:00 04:00 Temp 99.1 99.1 Pulse 66 105 Resp B/P (MAP) 118/45 (69) 119/47 Pulse Ox 100 100 O2 Delivery Ventilator Mechanical Ventilator Ventilator 09/21/21 09/21/21 09/21/21 09/21/21 05:00 05:40 06:00 07:00 Pulse 108 102 100 Resp 19 20 B/P (MAP) 115/52 93/47 112/44 Pulse Ox 100 100 100 100 O2 Delivery Ventilator Ventilator Ventilator Ventilator 09/21/21 09/21/21 09/21/21 09/21/21 07:27 07:30 08:00 08:30 Temp 101.2 101.2 Pulse 100 100 106 B/P (MAP) 114/46 122/46 118/48 Pulse Ox 100 100 100 100 O2 Delivery Ventilator Ventilator Ventilator Ventilator 09/21/21 09/21/21 09/21/21 09/21/21 09:00 09:22 09:30 10:09 Pulse 104 102 B/P (MAP) 122/50 122/52 Pulse Ox 100 100 100 100 O2 Delivery Ventilator Ventilator Ventilator Intake and Output 09/20/21 09/20/21 09/21/21 15:00 23:00 07:00 Intake Total 1787.05 ml 1452 ml Output Total 450 ml 500 ml 300 ml Balance -450 ml 1287.05 ml 1152 ml CRYSTAL LERMA MD Sep 21, 2021 11:04
--- NOTE | 2021-09-21 11:32 | PDOC ---
G I PROGRESS NOTE Reason for Follow-up Obstructive jaundice Objective Intubated sedated Physical Exam Lungs decreased BS CV S1 S2 ABD +BS, soft, Review of Relevant I have reviewed the following items michael (where applicable) has been applied. Labs Laboratory Tests Test 09/19/21 15:16 09/19/21 15:43 09/19/21 23:44 09/20/21 00:55 Urine Collection Type Void Urine Color (Auto) Dark yellow Urine Turbidity Clear Urine pH (Auto) 6.0 (<5.0-8.0) Urine Specific [place] 1.028 (1.000-1.030) Urine Protein (Auto) 30 mg/dL (Negative) Urine Glucose (Auto)(UA) Negative mg/dL (Negative) Urine Ketones (Auto) 10 mg/dL (Negative) Urine Blood (Auto) Negative (Negative) Urine Nitrite Negative (Negative) Urine Bilirubin (Auto) Moderate (Negative) Urine Urobilinogen (Auto) 6 mg/dL (Normal) Urine Leukocyte Esterase (Auto) Negative (Negative) Urine RBC 3-5 /HPF (0-2) Urine WBC 1-4 /HPF (0-4) Urine Squamous Epithelial Cells Mod /LPF Urine Amorphous Sediment Present /HPF Urine Bacteria 0 /HPF (0-FEW) Urine Mucus Slight /LPF Urine Opiates Screen Neg (NEG) Urine Methadone Screen Neg (NEG) Urine Barbiturates Neg (NEG) Urine Phencyclidine Screen Neg (NEG) Urine Amphetamine/Methamphetamine Pos (NEG) Urine Benzodiazepines Screen Neg (NEG) Urine Cocaine Screen Neg (NEG) Urine Cannabinoids Screen Neg (NEG) Urine Ethyl Alcohol Neg (NEG) White Blood Count 10.6 x10^3/uL (4.0-11.0) 25.3 x10^3/uL (4.0-11.0) Red Blood Count 4.28 x10^6/uL (3.50-5.40) 4.21 x10^6/uL (3.50-5.40) Hemoglobin 11.8 g/dL (12.0-15.5) 11.6 g/dL (12.0-15.5) Hematocrit 34.9 % (36.0-47.0) 36.9 % (36.0-47.0) Mean Corpuscular Volume 82 fL (79-100) 88 fL (79-100) Mean Corpuscular Hemoglobin 28 pg (25-35) 28 pg (25-35) Mean Corpuscular Hemoglobin Concent 34 g/dL (31-37) 31 g/dL (31-37) Red Cell Distribution Width 14.3 % (11.5-14.5) 15.5 % (11.5-14.5) Platelet Count 350 x10^3/uL (140-400) 451 x10^3/uL (140-400) Neutrophils (%) (Auto) 91 % (31-73) Lymphocytes (%) (Auto) 6 % (24-48) Monocytes (%) (Auto) 2 % (0-9) Eosinophils (%) (Auto) 0 % (0-3) Basophils (%) (Auto) 0 % (0-3) Neutrophils # (Auto) 9.7 x10^3/uL (1.8-7.7) Lymphocytes # (Auto) 0.7 x10^3/uL (1.0-4.8) Monocytes # (Auto) 0.2 x10^3/uL (0.0-1.1) Eosinophils # (Auto) 0.0 x10^3/uL (0.0-0.7) Basophils # (Auto) 0.0 x10^3/uL (0.0-0.2) Prothrombin Time 13.1 SEC (11.7-14.0) Prothromb Time International Ratio 1.0 (0.8-1.1) Activated Partial Thromboplast Time 25 SEC (24-38) Sodium Level 139 mmol/L (136-145) Potassium Level 2.4 mmol/L (3.5-5.1) Chloride Level 103 mmol/L (98-107) Carbon Dioxide Level 20 mmol/L (21-32) Anion Gap 16 (6-14) Blood Urea Nitrogen 27 mg/dL (7-20) Creatinine 0.5 mg/dL (0.6-1.0) Estimated GFR (Cockcroft-Gault) 127.6 BUN/Creatinine Ratio 54 (6-20) Glucose Level 100 mg/dL (70-99) Calcium Level 9.5 mg/dL (8.5-10.1) Magnesium Level 1.4 mg/dL (1.8-2.4) Total Bilirubin 8.0 mg/dL (0.2-1.0) Aspartate Amino Transf (AST/SGOT) 138 U/L (15-37) Alanine Aminotransferase (ALT/SGPT) 157 U/L (14-59) Alkaline Phosphatase 572 U/L (46-116) Creatine Kinase 88 U/L (26-192) Troponin I High Sensitivity 16 ng/L (4-50) Total Protein 6.7 g/dL (6.4-8.2) Albumin 3.1 g/dL (3.4-5.0) Albumin/Globulin Ratio 0.9 (1.0-1.7) Lipase 142 U/L (73-393) Ethyl Alcohol Level < 10 mg/dL (0-10) O2 Saturation 96 % (92-99) Arterial Blood pH 7.03 (7.35-7.45) Arterial Blood pCO2 at Patient Temp 78 mmHg (35-46) Arterial Blood pO2 at Patient Temp 128 mmHg (75-108) Arterial Blood HCO3 20 mmol/L (21-28) Arterial Blood Base Excess -12 mmol/L (-3-3) FiO2 50 (bipap) Test 09/20/21 02:06 09/20/21 07:39 09/20/21 09:48 09/20/21 15:00 O2 Saturation 95 % (92-99) 99 % (92-99) Arterial Blood pH 7.28 (7.35-7.45) 7.35 (7.35-7.45) Arterial Blood pCO2 at Patient Temp 37 mmHg (35-46) 34 mmHg (35-46) Arterial Blood pO2 at Patient Temp 84 mmHg (75-108) 196 mmHg (75-108) Arterial Blood HCO3 17 mmol/L (21-28) 18 mmol/L (21-28) Arterial Blood Base Excess -9 mmol/L (-3-3) -7 mmol/L (-3-3) FiO2 55 55% vent White Blood Count 15.8 x10^3/uL (4.0-11.0) Red Blood Count 3.97 x10^6/uL (3.50-5.40) Hemoglobin 10.8 g/dL (12.0-15.5) Hematocrit 33.3 % (36.0-47.0) Mean Corpuscular Volume 84 fL (79-100) Mean Corpuscular Hemoglobin 27 pg (25-35) Mean Corpuscular Hemoglobin Concent 32 g/dL (31-37) Red Cell Distribution Width 14.8 % (11.5-14.5) Platelet Count 358 x10^3/uL (140-400) Neutrophils (%) (Auto) 83 % (31-73) Lymphocytes (%) (Auto) 12 % (24-48) Monocytes (%) (Auto) 5 % (0-9) Eosinophils (%) (Auto) 0 % (0-3) Basophils (%) (Auto) 0 % (0-3) Neutrophils # (Auto) 13.2 x10^3/uL (1.8-7.7) Lymphocytes # (Auto) 1.8 x10^3/uL (1.0-4.8) Monocytes # (Auto) 0.8 x10^3/uL (0.0-1.1) Eosinophils # (Auto) 0.0 x10^3/uL (0.0-0.7) Basophils # (Auto) 0.0 x10^3/uL (0.0-0.2) Segmented Neutrophils % 68 % (35-66) Band Neutrophils % 15 % (0-9) Lymphocytes % 13 % (24-48) Monocytes % 3 % (0-10) Metamyelocytes % 1 % (0-0) Platelet Estimate Adequate (ADEQUATE) Sodium Level 148 mmol/L (136-145) Potassium Level 3.3 mmol/L (3.5-5.1) Chloride Level 114 mmol/L (98-107) Carbon Dioxide Level 18 mmol/L (21-32) Anion Gap 16 (6-14) Blood Urea Nitrogen 21 mg/dL (7-20) Creatinine 0.5 mg/dL (0.6-1.0) Estimated GFR (Cockcroft-Gault) 127.6 BUN/Creatinine Ratio 42 (6-20) Glucose Level 95 mg/dL (70-99) Calcium Level 8.5 mg/dL (8.5-10.1) Phosphorus Level 3.3 mg/dL (2.6-4.7) Magnesium Level 1.7 mg/dL (1.8-2.4) Total Bilirubin 4.0 mg/dL (0.2-1.0) Aspartate Amino Transf (AST/SGOT) 157 U/L (15-37) Alanine Aminotransferase (ALT/SGPT) 174 U/L (14-59) Alkaline Phosphatase 391 U/L (46-116) Total Protein 6.0 g/dL (6.4-8.2) Albumin 2.5 g/dL (3.4-5.0) Albumin/Globulin Ratio 0.7 (1.0-1.7) Hepatitis A IgM Antibody Nonreactive (Nonreactive) Hepatitis B Surface Antigen Nonreactive (Nonreactive) Hepatitis B Core IgM Antibody Nonreactive (Nonreactive) Hepatitis C IgG Antibody Nonreactive (Nonreactive) Lactic Acid Level 0.7 mmol/L (0.4-2.0) Troponin I High Sensitivity 179 ng/L (4-50) Test 09/21/21 07:30 O2 Saturation 98 % (92-99) Arterial Blood pH 7.36 (7.35-7.45) Arterial Blood pCO2 at Patient Temp 37 mmHg (35-46) Arterial Blood pO2 at Patient Temp 108 mmHg (75-108) Arterial Blood HCO3 20 mmol/L (21-28) Arterial Blood Base Excess -5 mmol/L (-3-3) FiO2 35% ac 20 500 5 Laboratory Tests Test 09/20/21 15:00 09/21/21 07:30 Lactic Acid Level 0.7 mmol/L (0.4-2.0) Troponin I High Sensitivity 179 ng/L (4-50) O2 Saturation 98 % (92-99) Arterial Blood pH 7.36 (7.35-7.45) Arterial Blood pCO2 at Patient Temp 37 mmHg (35-46) Arterial Blood pO2 at Patient Temp 108 mmHg (75-108) Arterial Blood HCO3 20 mmol/L (21-28) Arterial Blood Base Excess -5 mmol/L (-3-3) FiO2 35% ac 20 500 5 Microbiology 09/20/21 Blood Culture - Preliminary, Resulted NO GROWTH AFTER 1 DAY Medications Current Medications Sodium Chloride 1,000 ml @ 1,000 mls/hr 1X ONCE IV Last administered on 08/22 07/13at 15:49; Start 09/19/21 at 15:30; Stop 09/19/21 at 16:29; Status DC Lorazepam (Ativan Inj) 1 mg 1X ONCE IVP Last administered on 09/19/21at 15:48; Start 09/19/21 at 15:30; Stop 09/19/21 at 15:31; Status DC Ondansetron HCl (Zofran) 4 mg 1X ONCE IVP Last administered on 09/19/21at 15:47; Start 09/19/21 at 15:30; Stop 09/19/21 at 15:31; Status DC Fentanyl Citrate (Fentanyl 2ml Vial) 50 mcg 1X ONCE IVP Last administered on 09/19/21at 15:48; Start 09/19/21 at 15:30; Stop 09/19/21 at 15:31; Status DC Potassium Chloride (Klor-Con) 40 meq 1X ONCE PO Last administered on 09/19/21at 17:17; Start 09/19/21 at 17:15; Stop 09/19/21 at 17:16; Status DC Iohexol (Omnipaque 300 Mg/ml) 75 ml 1X ONCE IV Last administered on 09/19/21at 17:24; Start 09/19/21 at 17:15; Stop 09/19/21 at 17:16; Status DC Piperacillin Sod/ Tazobactam Sod 3.375 gm/Sodium Chloride 50 ml @ 100 mls/hr 1X ONCE IV Last administered on 09/19/21at 17:38; Start 09/19/21 at 17:15; Stop 09/19/21 at 17:44; Status DC Morphine Sulfate (Morphine Sulfate) 4 mg 1X ONCE IVP Last administered on 09/19/21at 17:37; Start 09/19/21 at 17:15; Stop 09/19/21 at 17:16; Status DC Potassium Chloride/Water 100 ml @ 50 mls/hr 1X ONCE IV Last administered on 09/19/21at 18:45; Start 09/19/21 at 17:30; Stop 09/19/21 at 19:29; Status DC Sodium Chloride 1,000 ml @ 1,000 mls/hr 1X ONCE IV Last administered on 09/19/21at 18:16; Start 09/19/21 at 17:45; Stop 09/19/21 at 18:44; Status DC Multivitamins 10 ml/Thiamine HCl 100 mg/Folic Acid 1 mg/Sodium Chloride 1,011.2 ml @ 100 mls/ hr DAILY IV Last administered on 09/21/21at 08:58; Start 09/19/21 at 18:00; Stop 09/23/21 at 19:07 Multivitamins (Thera M Plus) 1 tab DAILY PO ; Start 09/24/21 at 09:00 Folic Acid (Folic Acid) 1 mg DAILY PO ; Start 09/24/21 at 09:00 Thiamine Mononitrate (Vitamin B-1) 100 mg DAILY PO ; Start 09/24/21 at 09:00 Lorazepam (Ativan) 4 mg PRN Q1HR PRN PO For CIWA 8-14 Last administered on 09/19/21at 20:17; Start 09/19/21 at 17:45 Lorazepam (Ativan) 8 mg PRN Q1HR PRN PO For CIWA 15 or greater; Start 09/19/21 at 17:45 Sodium Chloride 1,000 ml @ 1,000 mls/hr 1X ONCE IV Last administered on 09/19/21at 18:15; Start 09/19/21 at 18:15; Stop 09/19/21 at 19:14; Status DC Ondansetron HCl (Zofran) 4 mg PRN Q6HRS PRN IVP NAUSEA/VOMITING; Start 09/19/21 at 20:30 Calcium Carbonate/ Glycine (Tums) 500 mg PRN Q3HRS PRN PO UPSET STOMACH; Start 09/19/21 at 20:30 Info (Non-Icu Electrolyte Protocol) 1 ea PRN DAILY PRN MC SEE COMMENTS; Start 09/19/21 at 20:30; Stop 09/20/21 at 01:12; Status DC Morphine Sulfate (Morphine Sulfate) 1 mg PRN Q1HR PRN IV PAIN; Start 09/19/21 at 20:30 Morphine Sulfate (Morphine Sulfate) 2 mg PRN Q1HR PRN IV PAIN Last administered on 09/19/21at 20:15; Start 09/19/21 at 20:30 Acetaminophen (Tylenol) 650 mg PRN Q6HRS PRN PO Headaches, Temp > 101.5F; Start 09/19/21 at 20:30 Senna/Docusate Sodium (Senna Plus) 1 tab BID PO Last administered on 09/21/21at 08:57; Start 09/19/21 at 21:00 Heparin Sodium (Porcine) (Heparin Sodium) 5,000 unit Q8HRS SQ Last administered on 09/21/21at 05:53; Start 09/19/21 at 22:00 Info (Icu Electrolyte Protocol) 1 ea CONT PRN PRN MC SEE COMMENTS; Start 09/20/21 at 01:15 Etomidate (Amidate) 20 mg STK-MED ONCE IV ; Start 09/20/21 at 01:20; Stop 09/20/21 at 01:21; Status DC Succinylcholine Chloride (Anectine) 200 mg STK-MED ONCE .ROUTE ; Start 09/20/21 at 01:20; Stop 09/20/21 at 01:21; Status DC Fentanyl Citrate 30 ml @ 2.5 mls/hr CONT PRN IV SEE PROTOCOL Last administered on 09/21/21at 10:09; Start 09/20/21 at 01:30 Propofol 100 ml @ 1.95 mls/hr CONT PRN IV PER PROTOCOL Last administered on 09/20/21at 01:42; Start 09/20/21 at 01:30 Vecuronium Grady (Norcuron Bolus) 6 mg PRN 1X PRN IV VENT INDUCTION; Start 09/20/21 at 01:30; Stop 09/21/21 at 01:29; Status DC Influenza Virus Vaccine Quadrival (Flulaval Quad [id number] Syringe) 0.5 ml ONCE ONCE VAX IM ; Start 09/20/21 at 03:45; Stop 09/20/21 at 03:46; Status UNV Dexmedetomidine HCl 400 mcg/ Sodium Chloride 100 ml @ 3.25 mls/hr CONT PRN IV PER PROTOCOL; Start 09/20/21 at 05:45 Midazolam HCl 100 ml @ 1 mls/hr CONT PRN IV SEE PROTOCOL Last administered on 09/21/21at 05:50; Start 09/20/21 at 07:30 Norepinephrine Bitartrate 8 mg/ Dextrose 258 ml @ 12.578 mls/ hr CONT PRN IV PER PROTOCOL Last administered on 09/20/21at 19:42; Start 09/20/21 at 07:30 Piperacillin Sod/ Tazobactam Sod (Zosyn Per Pharmacy) 1 each PRN DAILY PRN MC SEE COMMENTS; Start 09/20/21 at 08:30 Piperacillin Sod/ Tazobactam Sod 3.375 gm/Sodium Chloride 50 ml @ 100 mls/hr Q6HRS IV Last administered on 09/21/21at 05:52; Start 09/20/21 at 09:00 Pantoprazole Sodium (PROTONIX VIAL for IV PUSH) 40 mg DAILYAC IVP Last administered on 09/21/21at 08:59; Start 09/20/21 at 09:00 Potassium Chloride/Water 100 ml @ 100 mls/hr Q1H IV Last administered on 09/20/21at 15:22; Start 09/20/21 at 12:00; Stop 09/20/21 at 15:59; Status DC Lactobacillus Rhamnosus (Culturelle) 1 cap BID PO ; Start 09/20/21 at 21:00 Acetaminophen (Tylenol) 650 mg PRN Q6HRS PRN PEG MILD PAIN / TEMP > 100.3'F Last administered on 09/21/21at 08:57; Start 09/20/21 at 13:30 Magnesium Sulfate 50 ml @ 25 mls/hr 1X ONCE IV Last administered on 09/20/21at 15:22; Start 09/20/21 at 15:15; Stop 09/20/21 at 17:14; Status DC Info (Icu Electrolyte Protocol) 1 ea CONT PRN PRN MC PER PROTOCOL; Start 09/21/21 at 09:45 Magnesium Sulfate 100 ml @ 25 mls/hr 1X ONCE IV Last administered on 09/21/21at 10:11; Start 09/21/21 at 10:00; Stop 09/21/21 at 13:59 Active Scripts Active Reported Ibuprofen 800 Mg Tablet 800 Mg PO PRN Q6HRS PRN Acetaminophen 500 Mg Tablet 1,000 Mg PO PRN Q6HRS PRN Omeprazole 40 Mg Capsule.dr 40 Mg PO DAILY Vitals/I & O Vital Sign - Last 24 Hours 09/20/21 09/20/21 09/20/21 09/20/21 12:00 12:00 12:39 13:00 Temp 100.9 100.9 Pulse 100 91 100 Resp 20 20 B/P (MAP) 128/49 119/47 (71) 141/56 Pulse Ox 100 100 O2 Delivery Mechanical Ventilator Ventilator Ventilator 09/20/21 09/20/21 09/20/21 09/20/21 14:00 14:12 14:52 15:00 Pulse 95 96 Resp 22 B/P (MAP) 120/51 116/47 Pulse Ox 100 100 100 100 O2 Delivery Ventilator Ventilator Ventilator Ventilator 09/20/21 09/20/21 09/20/21 09/20/21 15:22 16:00 16:00 16:00 Pulse 95 94 Resp B/P (MAP) 108/44 121/50 (73) Pulse Ox 100 100 O2 Delivery Ventilator Mechanical Ventilator Ventilator 09/20/21 09/20/21 09/20/21 09/20/21 16:03 17:00 18:00 18:06 Temp 99.9 99.9 Pulse 98 96 B/P (MAP) 115/49 97/47 Pulse Ox 100 100 100 100 O2 Delivery Ventilator Ventilator Ventilator Ventilator 09/20/21 09/20/21 09/20/21 09/20/21 18:30 19:00 19:40 20:00 Temp 98.4 98.4 Pulse 96 107 107 Resp B/P (MAP) 95/41 103/50 129/53 Pulse Ox 100 100 100 100 O2 Delivery Ventilator Ventilator Ventilator Ventilator 09/20/21 09/20/21 09/20/21 09/20/21 20:00 20:00 21:00 21:50 Pulse 94 107 B/P (MAP) 121/50 (73) 131/80 Pulse Ox 97 100 O2 Delivery Mechanical Ventilator Ventilator Ventilator 09/20/21 09/20/21 09/20/21 09/20/21 22:00 23:00 23:30 23:45 Pulse 112 118 Resp B/P (MAP) 138/53 138/56 134/52 128/55 Pulse Ox 100 100 O2 Delivery Ventilator Ventilator 09/20/21 09/21/21 09/21/21 09/21/21 23:59 00:00 00:00 00:00 Pulse 94 114 B/P (MAP) 118/52 (74) 121/52 Pulse Ox 99 100 O2 Delivery Ventilator Ventilator Mechanical Ventilator 09/21/21 09/21/21 09/21/21 09/21/21 00:27 01:00 01:55 02:00 Temp 98.1 98.1 Pulse 112 113 Resp B/P (MAP) 123/76 130/64 Pulse Ox 99 100 99 100 O2 Delivery Ventilator Ventilator Ventilator O2 Flow Rate 15.0 09/21/21 09/21/21 09/21/21 09/21/21 02:15 02:25 03:00 03:40 Temp 100.0 100.0 Pulse 114 B/P (MAP) 122/50 123/48 Pulse Ox 99 100 100 O2 Delivery Ventilator Ventilator O2 Flow Rate 15.0 09/21/21 09/21/21 09/21/21 09/21/21 04:00 04:00 04:00 05:00 Temp 99.1 99.1 Pulse 66 105 108 Resp 22 19 B/P (MAP) 118/45 (69) 119/47 115/52 Pulse Ox 100 100 O2 Delivery Mechanical Ventilator Ventilator Ventilator 09/21/21 09/21/21 09/21/21 09/21/21 05:40 06:00 07:00 07:27 Pulse 102 100 Resp 20 B/P (MAP) 93/47 112/44 Pulse Ox 100 100 100 100 O2 Delivery Ventilator Ventilator Ventilator Ventilator 09/21/21 09/21/21 09/21/21 09/21/21 07:30 08:00 08:30 09:00 Temp 101.2 101.2 Pulse 100 100 106 104 B/P (MAP) 114/46 122/46 118/48 122/50 Pulse Ox 100 100 100 100 O2 Delivery Ventilator Ventilator Ventilator Ventilator 09/21/21 09/21/21 09/21/21 09:22 09:30 10:09 Pulse 102 B/P (MAP) 122/52 Pulse Ox 100 100 100 O2 Delivery Ventilator Ventilator Intake and Output 09/20/21 09/20/21 09/21/21 15:00 23:00 07:00 Intake Total 1787.05 ml 1452 ml Output Total 450 ml 500 ml 300 ml Balance -450 ml 1287.05 ml 1152 ml Problem List Problems Medical Problems: (1) Cholecystitis, acute with cholelithiasis Status: Acute (2) Choledocholithiasis Status: Acute (3) Hyperbilirubinemia Status: Acute (4) Obstructive jaundice Status: Acute (5) Transaminitis Status: Acute Assessment Obstructive jaundice- most likely secondary to choledocholithiasis, s/p code, medical therapy as cardiac risks are contra-indication to further interventions, possible cholecystostomy percutaneously if condition stabilizes Justicifation of Admission Dx: Justifications for Admission: Justification of Admission Dx: Yes Respiratory Failure: Mechanical Ventilation EMORY KANG MD Sep 21, 2021 11:32
--- NOTE | 2021-09-21 14:20 | PDOC ---
[facility] PROGRESS NOTE Date of Service DOS: DATE: 09/21/21 TIME: 14:18 Chief Complaint Chief Complaint Sepsis Choledocholithiasis Acute hypoxic respiratory failure Interstitial pneumonitis/aspiration pneumonia Transaminitis Hypokalemia Hypomagnesemia Methamphetamine abuse History of Present Illness History of Present Illness 09/21: Febrile, tachycardic. She remains intubated with PEEP 5, FiO2 35%. Continue Zosyn for choledocholithiasis. Plan for possible cholecystectomy if stabilizes. Critical care time 30 minutes spent reviewing charts, reviewing labs, imaging, discussion with RN. Vitals/I&O Vitals/I&O: Vital Signs Date Time Temp Pulse Resp B/P (MAP) Pulse Ox O2 Delivery O2 Flow Rate FiO2 09/21/21 13:06 100 Ventilator 09/21/21 09:30 102 122/52 09/21/21 08:00 101.2 101.2 09/21/21 06:00 20 09/21/21 02:25 15.0 I & O 09/20/21 09/20/21 09/21/21 15:00 23:00 07:00 Intake Total 1787.05 ml 1452 ml Output Total 450 ml 500 ml 300 ml Balance -450 ml 1287.05 ml 1152 ml Physical Exam General: Other (intubated) Heart: Regular rate (SR) Lungs: Crackles Abdomen: Soft, No tenderness Extremities: No clubbing, No cyanosis Skin: No breakdown Labs Labs: Laboratory Tests Test 09/20/21 15:00 09/21/21 07:30 Lactic Acid Level 0.7 mmol/L (0.4-2.0) Troponin I High Sensitivity 179 ng/L (4-50) O2 Saturation 98 % (92-99) Arterial Blood pH 7.36 (7.35-7.45) Arterial Blood pCO2 at Patient Temp 37 mmHg (35-46) Arterial Blood pO2 at Patient Temp 108 mmHg (75-108) Arterial Blood HCO3 20 mmol/L (21-28) Arterial Blood Base Excess -5 mmol/L (-3-3) FiO2 35% ac 20 500 5 Assessment and Plan Assessmemt and Plan Problems Medical Problems: (1) Cholecystitis, acute with cholelithiasis Status: Acute (2) Choledocholithiasis Status: Acute (3) Hyperbilirubinemia Status: Acute (4) Obstructive jaundice Status: Acute (5) Transaminitis Status: Acute Comment Review of Relevant I have reviewed the following items michael (where applicable) has been applied. Medications: Current Medications Medications (Trade) Dose Ordered Sig/Mitch Route PRN Reason Start Time Stop Time Status Last Admin Dose Admin Magnesium Sulfate 50 ml @ 25 mls/hr 1X ONCE IV 09/20/21 15:15 09/20/21 17:14 DC 09/20/21 15:22 Magnesium Sulfate 100 ml @ 25 mls/hr 1X ONCE IV 09/21/21 10:00 09/21/21 13:59 DC 09/21/21 10:11 Justifications for Admission Other Justification JANICE GONZALEZ MD Sep 21, 2021 14:20
[2021-09-21] MEDS: POTASSIUM CHLORIDE 10MEQ 100 ML IV SCH ×4 (15:00→17:59)
[2021-09-22] VITALS (24 sets, daily range): BP systolic 100–167; BP diastolic 44–84
[2021-09-22] MEDS: MIDAZOLAM 100mg/100ml NS BAG 100 ML IV PRN ×3 (05:28→21:12)
[2021-09-22] MEDS: HEPARIN for SUB-Q USE 5,000 UNIT/ML VIAL. SQ SCH ×3 (05:29→22:33)
[2021-09-22] MEDS: PIPERACILLIN/TAZOBACTAM 3.375 GM in IV NORMAL SALINE 50ML 50 ML IV SCH ×3 (05:30→18:05)
[2021-09-22 06:31] LABS: CALCIUM 8.7 mg/dL (8.5-10.1); CREATININE 0.5 mg/dL (0.6-1.0); GFR 127.6; MAGNESIUM 1.6 mg/dL (1.8-2.4); POTASSIUM 3.2 mmol/L (3.5-5.1)
--- NOTE | 2021-09-22 06:43 | PDOC ---
PULMONARY PROGRESS NOTES DATE: 09/22/21 TIME: 06:42 Subjective on vent sedated on versed fentanyl on levo 0.03 Vitals Vital Signs Date Time Temp Pulse Resp B/P (MAP) Pulse Ox O2 Delivery O2 Flow Rate FiO2 09/22/21 05:30 100 Ventilator 09/22/21 05:27 15.0 09/22/21 05:00 101 21 121/62 09/22/21 04:00 99.6 99.6 Comments sedated on vent ros unable to obtain HEENT: Other (nc at perrl orally intubated nose clear neck no lad no thyromegaly) Lungs: Crackles Cardiovascular: S1, S2 Abdomen: Soft, Non-tender, Other (no mass) Extremities: No Edema Skin: Warm Labs Laboratory Tests Test 09/20/21 07:39 09/20/21 09:48 09/20/21 15:00 09/21/21 07:30 O2 Saturation 99 % (92-99) 98 % (92-99) Arterial Blood pH 7.35 (7.35-7.45) 7.36 (7.35-7.45) Arterial Blood pCO2 at Patient Temp 34 mmHg (35-46) 37 mmHg (35-46) Arterial Blood pO2 at Patient Temp 196 mmHg (75-108) 108 mmHg (75-108) Arterial Blood HCO3 18 mmol/L (21-28) 20 mmol/L (21-28) Arterial Blood Base Excess -7 mmol/L (-3-3) -5 mmol/L (-3-3) FiO2 55% vent 35% ac 20 500 5 White Blood Count 15.8 x10^3/uL (4.0-11.0) Red Blood Count 3.97 x10^6/uL (3.50-5.40) Hemoglobin 10.8 g/dL (12.0-15.5) Hematocrit 33.3 % (36.0-47.0) Mean Corpuscular Volume 84 fL (79-100) Mean Corpuscular Hemoglobin 27 pg (25-35) Mean Corpuscular Hemoglobin Concent 32 g/dL (31-37) Red Cell Distribution Width 14.8 % (11.5-14.5) Platelet Count 358 x10^3/uL (140-400) Neutrophils (%) (Auto) 83 % (31-73) Lymphocytes (%) (Auto) 12 % (24-48) Monocytes (%) (Auto) 5 % (0-9) Eosinophils (%) (Auto) 0 % (0-3) Basophils (%) (Auto) 0 % (0-3) Neutrophils # (Auto) 13.2 x10^3/uL (1.8-7.7) Lymphocytes # (Auto) 1.8 x10^3/uL (1.0-4.8) Monocytes # (Auto) 0.8 x10^3/uL (0.0-1.1) Eosinophils # (Auto) 0.0 x10^3/uL (0.0-0.7) Basophils # (Auto) 0.0 x10^3/uL (0.0-0.2) Segmented Neutrophils % 68 % (35-66) Band Neutrophils % 15 % (0-9) Lymphocytes % 13 % (24-48) Monocytes % 3 % (0-10) Metamyelocytes % 1 % (0-0) Platelet Estimate Adequate (ADEQUATE) Sodium Level 148 mmol/L (136-145) Potassium Level 3.3 mmol/L (3.5-5.1) Chloride Level 114 mmol/L (98-107) Carbon Dioxide Level 18 mmol/L (21-32) Anion Gap 16 (6-14) Blood Urea Nitrogen 21 mg/dL (7-20) Creatinine 0.5 mg/dL (0.6-1.0) Estimated GFR (Cockcroft-Gault) 127.6 BUN/Creatinine Ratio 42 (6-20) Glucose Level 95 mg/dL (70-99) Calcium Level 8.5 mg/dL (8.5-10.1) Phosphorus Level 3.3 mg/dL (2.6-4.7) Magnesium Level 1.7 mg/dL (1.8-2.4) Total Bilirubin 4.0 mg/dL (0.2-1.0) Aspartate Amino Transf (AST/SGOT) 157 U/L (15-37) Alanine Aminotransferase (ALT/SGPT) 174 U/L (14-59) Alkaline Phosphatase 391 U/L (46-116) Total Protein 6.0 g/dL (6.4-8.2) Albumin 2.5 g/dL (3.4-5.0) Albumin/Globulin Ratio 0.7 (1.0-1.7) Hepatitis A IgM Antibody Nonreactive (Nonreactive) Hepatitis B Surface Antigen Nonreactive (Nonreactive) Hepatitis B Core IgM Antibody Nonreactive (Nonreactive) Hepatitis C IgG Antibody Nonreactive (Nonreactive) Lactic Acid Level 0.7 mmol/L (0.4-2.0) Troponin I High Sensitivity 179 ng/L (4-50) Test 09/22/21 06:10 Sodium Level 155 mmol/L (136-145) Potassium Level 3.2 mmol/L (3.5-5.1) Chloride Level 121 mmol/L (98-107) Carbon Dioxide Level 22 mmol/L (21-32) Anion Gap 12 (6-14) Blood Urea Nitrogen 12 mg/dL (7-20) Creatinine 0.5 mg/dL (0.6-1.0) Estimated GFR (Cockcroft-Gault) 127.6 Glucose Level 73 mg/dL (70-99) Calcium Level 8.7 mg/dL (8.5-10.1) Magnesium Level 1.6 mg/dL (1.8-2.4) Laboratory Tests Test 09/21/21 07:30 09/22/21 06:10 O2 Saturation 98 % (92-99) Arterial Blood pH 7.36 (7.35-7.45) Arterial Blood pCO2 at Patient Temp 37 mmHg (35-46) Arterial Blood pO2 at Patient Temp 108 mmHg (75-108) Arterial Blood HCO3 20 mmol/L (21-28) Arterial Blood Base Excess -5 mmol/L (-3-3) FiO2 35% ac 20 500 5 Sodium Level 155 mmol/L (136-145) Potassium Level 3.2 mmol/L (3.5-5.1) Chloride Level 121 mmol/L (98-107) Carbon Dioxide Level 22 mmol/L (21-32) Anion Gap 12 (6-14) Blood Urea Nitrogen 12 mg/dL (7-20) Creatinine 0.5 mg/dL (0.6-1.0) Estimated GFR (Cockcroft-Gault) 127.6 Glucose Level 73 mg/dL (70-99) Calcium Level 8.7 mg/dL (8.5-10.1) Magnesium Level 1.6 mg/dL (1.8-2.4) Medications Active Scripts Medications Dose Route/Sig Max Daily Dose Days Date Category Ibuprofen 800 Mg Tablet 800 Mg PO PRN Q6HRS PRN 09/19/21 Reported Acetaminophen 500 Mg Tablet 1,000 Mg PO PRN Q6HRS PRN 09/19/21 Reported Omeprazole 40 Mg Capsule.dr 40 Mg PO DAILY 09/19/21 Reported Comments cxr 09/20 reviewed Interval intubation with the endotracheal tube terminating approximately 3.6 cm above the barb and placement of enteric tube extending into the stomach with tip beyond the limit of the image. Improved aeration of the bilateral lungs with mild residual patchy airspace disease in the right lower lung zone. No evidence of pleural effusion or pne umothorax. Stable heart size. Impression . IMPRESSION: 1. Acute hypercapnic respiratory failure secondary to toxic encephalopathy from the effect of Ativan and morphine resulting in acute hypercapnia and respiratory arrest. She had brief asystole as well. Now, arterial blood gases showing complete resolution of hypercapnia. 2. History of meth use and heavy alcohol use. 3. Abnormal CT abdomen and pelvis with evidence of choledocholithiasis or mass. GI is following. ERCP is recommended. 4. Leukocytosis. 5. Hypokalemia, currently being corrected. 6. Hyperbilirubinemia along with abnormal transaminases. 7. Moderate protein-calorie malnutrition. 8. History of tobaccoism. 9. Shock, combination of hypovolemic as well as medication related. Currently, blood pressure is stable. Plan . updated 09/22 1. cont vent support setting reviewed not ready for sbt going through withdrawal 2. reviewed ABGs cxr am cxr 3. Continue broad-spectrum antibiotics. 4. elevate hob 5. Continue with PPI. 6. Continue with sedation. 7. pressors to keep map 60 8. Heparin for DVT prophylaxis. 9. Discussed with RN and RT. Chart reviewed. Imaging studies reviewed. RG MONTOYA MD Sep 22, 2021 06:43
[2021-09-22 08:02] LABS: BASE EXCESS ABG -3 mmol/L (-3-3); HCO3 ABG 22 mmol/L (21-28); PCO2 ABG 37 mmHg (35-46); PO2 ABG 105 mmHg (75-108); SAT O2 ABG 98 % (92-99)
[2021-09-22 08:10] LABS: FIO2 ABG 35% AC 20 500 5
--- NOTE | 2021-09-22 08:16 | PDOC ---
PROGRESS NOTES Date of Service: DATE: 09/22/21 TIME: 08:16 Subjective Subjective Intubated and sedated Objective Objective Vital Signs Date Time Temp Pulse Resp B/P (MAP) Pulse Ox O2 Delivery O2 Flow Rate FiO2 09/22/21 07:32 100 Ventilator 09/22/21 06:00 101 21 121/62 09/22/21 05:27 15.0 09/22/21 04:00 99.6 99.6 Intake and Output 09/22/21 07:00 Intake Total 1647 ml Output Total 1275 ml Balance 372 ml Intake Oral 0 ml IV Total 1647 ml Output Urine Total 1275 ml Physical Exam Abdomen: Soft, No tenderness Heart: Regular rate (SR) Extremities: No clubbing, No cyanosis General: Other (intubated) HEENT: Atraumatic, Mucous membr. moist/pink Lungs: Other (intubated with MV) Psych/Mental Status: Other (sedated) Skin: No breakdown Assessment Assessment 1. Obstructive jaundice with suspected choledocholithiasis: will need future ERCP. GS/GI following 2. Polysubstance abuse: with methamphetamines and ETOH 3. Hx of HTN 4. Encephalopathy: possible initial development of DT 5. S/P Cardiopulmonary arrest: noted asystole, unclear details and duration but suspected due to respiratory failure. Intubated with MV 6. Hypokalemia/hypomagnesemia 7. Dehydration 8. Arrhythmia: Brief period x1 with what appears to be brief AFIB RVR with aberrant conduction that spontaneously converted to SR. multiple culprits as noted above - no further episodes on tele 9. Fever/leukocytosis 10. Shock: multifactorial Recommendations 1. 2D echo showed normal LV systolic function with EF 60 to 65% 2. Pressor support with levophed. Presently on versed and precedex and banana bag 4. Supportive care Plan Plan of Care Problems Medical Problems: (1) Cholecystitis, acute with cholelithiasis Status: Acute (2) Choledocholithiasis Status: Acute (3) Hyperbilirubinemia Status: Acute (4) Obstructive jaundice Status: Acute (5) Transaminitis Status: Acute Comment Review of Relevant I have reviewed the following items michael (where applicable) has been applied. Labs Laboratory Tests Test 09/22/21 06:10 09/22/21 08:00 Sodium Level 155 mmol/L (136-145) Potassium Level 3.2 mmol/L (3.5-5.1) Chloride Level 121 mmol/L (98-107) Carbon Dioxide Level 22 mmol/L (21-32) Anion Gap 12 (6-14) Blood Urea Nitrogen 12 mg/dL (7-20) Creatinine 0.5 mg/dL (0.6-1.0) Estimated GFR (Cockcroft-Gault) 127.6 Glucose Level 73 mg/dL (70-99) Calcium Level 8.7 mg/dL (8.5-10.1) Magnesium Level 1.6 mg/dL (1.8-2.4) O2 Saturation 98 % (92-99) Arterial Blood pH 7.40 (7.35-7.45) Arterial Blood pCO2 at Patient Temp 37 mmHg (35-46) Arterial Blood pO2 at Patient Temp 105 mmHg (75-108) Arterial Blood HCO3 22 mmol/L (21-28) Arterial Blood Base Excess -3 mmol/L (-3-3) FiO2 35% ac 20 500 5 Microbiology 09/20/21 Blood Culture - Preliminary, Resulted NO GROWTH AFTER 1 DAY Medications Current Medications Folic Acid (Folic Acid) 1 mg DAILY PO ; Start 09/24/21 at 09:00 Info ([facility] Electrolyte Protocol) 1 ea CONT PRN PRN MC PER PROTOCOL; Start 09/21/21 at 09:45 Magnesium Sulfate 100 ml @ 25 mls/hr 1X ONCE IV Last administered on 09/21/21at 10:11; Start 09/21/21 at 10:00; Stop 09/21/21 at 13:59; Status DC Multivitamins (Thera M Plus) 1 tab DAILY PO ; Start 09/24/21 at 09:00 Multivitamins 10 ml/Thiamine HCl 100 mg/Folic Acid 1 mg/Dextrose 1,011.2 ml @ 100.001 mls/hr DAILY IV ; Start 09/22/21 at 09:00; Stop 09/23/21 at 19:07 Potassium Chloride/Water 100 ml @ 100 mls/hr Q1H IV Last administered on 09/21/21at 17:59; Start 09/21/21 at 15:00; Stop 09/21/21 at 18:59; Status DC Thiamine Mononitrate (Vitamin B-1) 100 mg DAILY PO ; Start 09/24/21 at 09:00 Vitals/I & O Vital Sign - Last 24 Hours 09/21/21 09/21/21 09/21/21 09/21/21 08:30 09:00 09:22 09:30 Pulse 106 104 102 B/P (MAP) 118/48 122/50 122/52 Pulse Ox 100 100 100 100 O2 Delivery Ventilator Ventilator Ventilator Ventilator 09/21/21 09/21/21 09/21/21 09/21/21 10:00 10:09 11:00 11:26 Temp 99.3 99.3 Pulse 108 104 Resp 20 20 B/P (MAP) 140/60 120/52 Pulse Ox 100 100 100 100 O2 Delivery Ventilator Ventilator Ventilator 09/21/21 09/21/21 09/21/21 09/21/21 12:00 12:00 12:00 13:00 Temp 98.8 98.8 Pulse 96 88 88 Resp 20 20 B/P (MAP) 100/42 104/52 Pulse Ox 100 100 O2 Delivery Ventilator Mechanical Ventilator Ventilator 09/21/21 09/21/21 09/21/21 09/21/21 13:06 14:00 15:00 16:00 Pulse 88 88 Resp B/P (MAP) 108/54 98/44 Pulse Ox 100 100 100 O2 Delivery Ventilator Ventilator Ventilator 09/21/21 09/21/21 09/21/21 09/21/21 16:00 16:00 16:26 17:00 Temp 99.5 99.5 Pulse 90 86 Resp 20 B/P (MAP) 98/48 96/46 Pulse Ox 100 100 100 O2 Delivery Mechanical Ventilator Ventilator Ventilator Ventilator 09/21/21 09/21/21 09/21/21 09/21/21 18:00 19:00 20:00 20:00 Pulse 86 84 88 Resp 22 B/P (MAP) 90/46 101/46 Pulse Ox 100 100 O2 Delivery Ventilator Ventilator Mechanical Ventilator 09/21/21 09/21/21 09/21/21 09/21/21 20:00 20:32 21:00 22:00 Temp 99.1 99.1 Pulse 90 88 87 Resp 22 24 B/P (MAP) 99/46 95/47 112/52 Pulse Ox 100 100 99 98 O2 Delivery Ventilator Ventilator Ventilator Ventilator 09/21/21 09/21/21 09/22/21 09/22/21 22:30 23:00 00:00 00:00 Pulse 90 88 Resp B/P (MAP) 108/57 Pulse Ox 100 99 O2 Delivery Ventilator Ventilator Mechanical Ventilator 09/22/21 09/22/21 09/22/21 09/22/21 00:00 00:31 01:00 02:00 Temp 98.9 98.9 Pulse 94 99 102 Resp B/P (MAP) 111/53 114/51 112/59 Pulse Ox 100 100 99 99 O2 Delivery Ventilator Ventilator Ventilator Ventilator 09/22/21 09/22/21 09/22/21 09/22/21 03:00 03:32 04:00 04:00 Temp 99.6 99.6 Pulse 105 103 B/P (MAP) 112/63 125/57 Pulse Ox 99 100 99 O2 Delivery Ventilator Ventilator Mechanical Ventilator Ventilator 09/22/21 09/22/21 09/22/21 09/22/21 04:00 05:00 05:27 05:30 Pulse 88 101 Resp 21 B/P (MAP) 121/62 Pulse Ox 99 99 100 O2 Delivery Ventilator Ventilator O2 Flow Rate 15.0 09/22/21 09/22/21 06:00 07:32 Pulse 101 Resp 21 B/P (MAP) 121/62 Pulse Ox 99 100 O2 Delivery Ventilator Ventilator Intake and Output 09/21/21 09/21/21 09/22/21 15:00 23:00 07:00 Intake Total 25 ml 1500 ml 122 ml Output Total 475 ml 300 ml 500 ml Balance -450 ml 1200 ml -378 ml CRYSTAL LERMA MD Sep 22, 2021 08:16
--- NOTE | 2021-09-22 08:24 | CARD ---
MR#: [id number] Date of Study: 09/20/2021 Ordering Physician: CHERELLE HUTCHINSON, Referring Physician: CHERELLE HUTCHINSON Tech: Matt Ricks [facility] APPROVED REPORT EXAM: Two-dimensional and M-mode echocardiogram with Doppler and color Doppler. Other Information Quality : AverageHR: 95bpm Rhythm : NSR INDICATION Post cardiopulmonary arrest. RISK FACTORS Hypertension Polysubstance abuse 2D DIMENSIONS Left Atrium(2D)4.0 (1.6-4.0cm)IVSd1.0 (0.7-1.1cm) Aortic Root(2D)3.3 (2.0-3.7cm)LVDd4.3 (3.9-5.9cm) PWd0.9 (0.7-1.1cm)LA Hxivsb31 (18-58mL) LVDs2.5 (2.5-4.0cm)FS (%) 42.8 % SV61.4 mlLVEF(%)74.3 (>50%) Aortic Valve AoV Peak Andres.187.4cm/sAoV VTI26.5cm AO Peak GR.14.0mmHgLVOT VTI 20.37cm AO Mean GR.7mmHgAI P 1/2 [id number] Mitral Valve MV E Svytbovu79.8cm/sMV DECEL [id number] MV A Fynmirhv48.8cm/sE/A Ratio1.1 TDI Lateral E' P. V11.97cm/sMedial E' P. V12.94cm/s E/Lateral E'8.1E/Medial E'7.5 Pulmonary Valve PV Peak Dtbxxdzm387.6cm/s Tricuspid Valve TR P. Lhrmecou350jh/sTR Peak Gr.36mmHg Pulmonary Vein S1 Lsjptbpi38.3cm/sS2 Umudnvwj61.61cm/s D2 Mwnovybf52.6cm/s LEFT VENTRICLE The left ventricle is normal size. There is normal left ventricular wall thickness. The left ventricu lar systolic function is normal. The ejection fraction is 65-70%. There is normal LV segmental wall m otion. No left ventricle thrombus noted on this study. There is no ventricular septal defect visualiz ed. There is no left ventricular aneurysm. There is no mass noted in the left ventricle. RIGHT VENTRICLE The right ventricle is normal size. There is normal right ventricular wall thickness. The right ventr icular systolic function is normal. ATRIA The left atrium is mildly dilated. The right atrium size is normal. The interatrial septum is intact with no evidence for an atrial septal defect or patent foramen ovale as noted on 2-D or Doppler imagi ng. AORTIC VALVE The aortic valve is normal in structure and function. Doppler and Color Flow revealed trace aortic re gurgitation. There is no significant aortic valvular stenosis. There is no aortic valvular vegetation . MITRAL VALVE The mitral valve is normal in structure and function. There is no evidence of mitral valve prolapse. There is no mitral valve stenosis. Doppler and Color-flow revealed trace mitral regurgitation. TRICUSPID VALVE The tricuspid valve is normal in structure and function. Doppler and Color Flow revealed mild tricusp id regurgitation. The PA pressure was estimated at 40 mmHg. There is no tricuspid valve prolapse or v egetation. There is no tricuspid valve stenosis. PULMONIC VALVE The pulmonary valve is normal in structure and function. Doppler and Color Flow revealed no pulmonic valvular regurgitation. There is no pulmonic valvular stenosis. GREAT VESSELS The aortic root is normal in size. The ascending aorta is normal in size. The pulmonary artery is nor mal. The IVC is normal in size and collapses >50% with inspiration. PERICARDIAL EFFUSION There is no pleural effusion. There is no evidence of significant pericardial effusion. Critical Notification Critical Value: No <Conclusion> The left ventricular systolic function is normal. The ejection fraction is 65-70%. There is normal LV segmental wall motion. Trace mitral regurgitation. Mild tricuspid regurgitation. The PA pressure was estimated at 40 mmHg. There is no evidence of significant pericardial effusion. Signed by : David Stacy, Electronically Approved : 09/22/2021 08:24:09
[2021-09-22] MEDS: LACTOBACILLUS RHAMNOSUS GG 1 CAPSULE. PO SCH ×2 (08:36→21:00)
[2021-09-22 10:06] LABS: ALBUMIN/GLOBULIN RATIO 0.6 (1.0-1.7); CALCIUM 8.6 mg/dL (8.5-10.1); CREATININE 0.5 mg/dL (0.6-1.0); GFR 127.6; TOTAL BILIRUBIN 1.8 mg/dL (0.2-1.0); TOTAL PROTEIN 5.4 g/dL (6.4-8.2)
--- NOTE | 2021-09-22 10:21 | PDOC ---
SURGICAL PROGRESS NOTE DATE: 09/22/21 TIME: 10:20 Subjective Pt intubated and sedated Vital Signs Vital Signs Date Time Temp Pulse Resp B/P (MAP) Pulse Ox O2 Delivery O2 Flow Rate FiO2 09/22/21 09:34 100 Ventilator 09/22/21 06:00 101 21 121/62 09/22/21 05:27 15.0 09/22/21 04:00 99.6 99.6 I&O Intake and Output 09/22/21 07:00 Intake Total 1647 ml Output Total 1275 ml Balance 372 ml Intake Oral 0 ml IV Total 1647 ml Output Urine Total 1275 ml HEENT: Other (anicteric sclera) Abdomen: Soft, No tenderness Labs Laboratory Tests Test 09/20/21 15:00 09/21/21 07:30 09/22/21 06:10 09/22/21 08:00 Lactic Acid Level 0.7 mmol/L (0.4-2.0) Troponin I High Sensitivity 179 ng/L (4-50) O2 Saturation 98 % (92-99) 98 % (92-99) Arterial Blood pH 7.36 (7.35-7.45) 7.40 (7.35-7.45) Arterial Blood pCO2 at Patient Temp 37 mmHg (35-46) 37 mmHg (35-46) Arterial Blood pO2 at Patient Temp 108 mmHg (75-108) 105 mmHg (75-108) Arterial Blood HCO3 20 mmol/L (21-28) 22 mmol/L (21-28) Arterial Blood Base Excess -5 mmol/L (-3-3) -3 mmol/L (-3-3) FiO2 35% ac 20 500 5 35% ac 20 500 5 Sodium Level 155 mmol/L (136-145) Potassium Level 3.2 mmol/L (3.5-5.1) Chloride Level 121 mmol/L (98-107) Carbon Dioxide Level 22 mmol/L (21-32) Anion Gap 12 (6-14) Blood Urea Nitrogen 12 mg/dL (7-20) Creatinine 0.5 mg/dL (0.6-1.0) Estimated GFR (Cockcroft-Gault) 127.6 Glucose Level 73 mg/dL (70-99) Calcium Level 8.7 mg/dL (8.5-10.1) Magnesium Level 1.6 mg/dL (1.8-2.4) Laboratory Tests Test 09/22/21 06:10 09/22/21 08:00 Sodium Level 155 mmol/L (136-145) Potassium Level 3.2 mmol/L (3.5-5.1) Chloride Level 121 mmol/L (98-107) Carbon Dioxide Level 22 mmol/L (21-32) Anion Gap 12 (6-14) Blood Urea Nitrogen 12 mg/dL (7-20) Creatinine 0.5 mg/dL (0.6-1.0) Estimated GFR (Cockcroft-Gault) 127.6 Glucose Level 73 mg/dL (70-99) Calcium Level 8.7 mg/dL (8.5-10.1) Magnesium Level 1.6 mg/dL (1.8-2.4) O2 Saturation 98 % (92-99) Arterial Blood pH 7.40 (7.35-7.45) Arterial Blood pCO2 at Patient Temp 37 mmHg (35-46) Arterial Blood pO2 at Patient Temp 105 mmHg (75-108) Arterial Blood HCO3 22 mmol/L (21-28) Arterial Blood Base Excess -3 mmol/L (-3-3) FiO2 35% ac 20 500 5 Problem List Problems Medical Problems: (1) Cholecystitis, acute with cholelithiasis Status: Acute (2) Choledocholithiasis Status: Acute (3) Hyperbilirubinemia Status: Acute (4) Obstructive jaundice Status: Acute (5) Transaminitis Status: Acute Assessment/Plan cont supportive care, jaundice improved pt prohibitive surgical candidate currently Justicifation of Admission Dx: Justifications for Admission: Justification of Admission Dx: Yes Respiratory Failure: Mechanical Ventilation ISAEL JOHNSON MD Sep 22, 2021 10:21
[2021-09-22] MEDS ORDERED: POTASSIUM CL 20MEQ IN D5W 1,000 ML IV ONE (10:45)
[2021-09-22] MEDS ORDERED: IV DEXTROSE 5% 500 ML IV ONE (10:45)
[2021-09-22] MEDS ORDERED: MAGNESIUM SULFATE 2GM 50 ML IV ONE (10:45)
[2021-09-22] MEDS: PANTOPRAZOLE IV PUSH 40 MG VIAL. IVP SCH (11:05)
[2021-09-22] MEDS: SENNOSIDES/DOCUSATE 8.6/50MG TABLET. PO SCH ×2 (11:05→21:14)
[2021-09-22] MEDS: MULTIVIT INFUSN ADULT K IV SCH (11:14)
[2021-09-22] MEDS: [UNRECOGNIZED DRUG - OTHER] IV SCH (11:14)
[2021-09-22] MEDS: THIAMINE IV SCH (11:14)
[2021-09-22] MEDS: FOLIC ACID IV SCH (11:14)
--- NOTE | 2021-09-22 12:01 | PDOC ---
[facility] PROGRESS NOTE Date of Service DOS: DATE: 09/22/21 TIME: 11:55 Chief Complaint Chief Complaint Sepsis Choledocholithiasis Acute hypoxic respiratory failure Interstitial pneumonitis/aspiration pneumonia Transaminitis Hypokalemia Hypomagnesemia Methamphetamine abuse History of Present Illness History of Present Illness 09/21: Febrile, tachycardic. She remains intubated with PEEP 5, FiO2 35%. Continue Zosyn for choledocholithiasis. Plan for possible cholecystectomy if stabilizes. Critical care time 30 minutes spent reviewing charts, reviewing labs, imaging, discussion with RN. 09/22: Afebrile. FiO2 35, PEEP 5. Sodium 155, potassium 3.0, magnesium 1.6. Ordered D5 water with potassium, and 2 g MG sulfate. Nurse reports that she discussed with lab about precipitous drop in hemoglobin of 4 g. Due to no obvious signs of bleeding we will recheck, and if accurate transfuse 1 unit PRBCs and consult GI. Per general surgery, currently prohibitive surgical candidate. 30 minutes critical care time spent reviewing charts, reviewing labs, reviewing imaging, discussion with RN. Vitals/I&O Vitals/I&O: Vital Signs Date Time Temp Pulse Resp B/P (MAP) Pulse Ox O2 Delivery O2 Flow Rate FiO2 09/22/21 11:15 100 Ventilator 09/22/21 06:00 101 21 121/62 09/22/21 05:27 15.0 09/22/21 04:00 99.6 99.6 I & O 09/21/21 09/21/21 09/22/21 15:00 23:00 07:00 Intake Total 25 ml 1500 ml 122 ml Output Total 475 ml 300 ml 500 ml Balance -450 ml 1200 ml -378 ml Physical Exam General: Other (intubated) Heart: Regular rate (SR) Lungs: Crackles Abdomen: Soft, No tenderness Extremities: No clubbing, No cyanosis Skin: No breakdown Labs Labs: Laboratory Tests Test 09/22/21 06:10 09/22/21 08:00 09/22/21 09:40 Sodium Level 155 mmol/L (136-145) 155 mmol/L (136-145) Potassium Level 3.2 mmol/L (3.5-5.1) 3.0 mmol/L (3.5-5.1) Chloride Level 121 mmol/L (98-107) 120 mmol/L (98-107) Carbon Dioxide Level 22 mmol/L (21-32) 22 mmol/L (21-32) Anion Gap 12 (6-14) 13 (6-14) Blood Urea Nitrogen 12 mg/dL (7-20) 13 mg/dL (7-20) Creatinine 0.5 mg/dL (0.6-1.0) 0.5 mg/dL (0.6-1.0) Estimated GFR (Cockcroft-Gault) 127.6 127.6 Glucose Level 73 mg/dL (70-99) 92 mg/dL (70-99) Calcium Level 8.7 mg/dL (8.5-10.1) 8.6 mg/dL (8.5-10.1) Magnesium Level 1.6 mg/dL (1.8-2.4) O2 Saturation 98 % (92-99) Arterial Blood pH 7.40 (7.35-7.45) Arterial Blood pCO2 at Patient Temp 37 mmHg (35-46) Arterial Blood pO2 at Patient Temp 105 mmHg (75-108) Arterial Blood HCO3 22 mmol/L (21-28) Arterial Blood Base Excess -3 mmol/L (-3-3) FiO2 35% ac 20 500 5 BUN/Creatinine Ratio 26 (6-20) Total Bilirubin 1.8 mg/dL (0.2-1.0) Aspartate Amino Transf (AST/SGOT) 61 U/L (15-37) Alanine Aminotransferase (ALT/SGPT) 93 U/L (14-59) Alkaline Phosphatase 242 U/L (46-116) Total Protein 5.4 g/dL (6.4-8.2) Albumin 2.0 g/dL (3.4-5.0) Albumin/Globulin Ratio 0.6 (1.0-1.7) Assessment and Plan Assessmemt and Plan Problems Medical Problems: (1) Cholecystitis, acute with cholelithiasis Status: Acute (2) Choledocholithiasis Status: Acute (3) Hyperbilirubinemia Status: Acute (4) Obstructive jaundice Status: Acute (5) Transaminitis Status: Acute Comment Review of Relevant I have reviewed the following items michael (where applicable) has been applied. Medications: Current Medications Medications (Trade) Dose Ordered Sig/Mitch Route PRN Reason Start Time Stop Time Status Last Admin Dose Admin Potassium Chloride/Water 100 ml @ 100 mls/hr Q1H IV 09/21/21 15:00 09/21/21 18:59 DC 09/21/21 17:59 Multivitamins 10 ml/Thiamine HCl 100 mg/Folic Acid 1 mg/Dextrose 1,011.2 ml @ 100.001 mls/hr DAILY IV 09/22/21 09:00 09/23/21 19:07 09/22/21 11:14 Magnesium Sulfate 50 ml @ 25 mls/hr 1X ONCE IV 09/22/21 10:45 09/22/21 12:44 09/22/21 11:40 Potassium Chloride/Dextrose 1,000 ml @ 100 mls/hr Q10H ONCE IV 09/22/21 10:45 09/22/21 20:44 09/22/21 11:13 Justifications for Admission Other Justification JANICE GONZALEZ MD Sep 22, 2021 12:01
[2021-09-22 12:16] LABS: CEA 2.8 ng/mL (0.0-4.7)
[2021-09-22 12:39] LABS: HEMATOCRIT 26.7 % (36.0-47.0); HEMOGLOBIN 8.8 g/dL (12.0-15.5); RED BLOOD COUNT 3.19 x10^6/uL (3.50-5.40); RED CELL DISTRIBUTION WIDTH 14.6 % (11.5-14.5); WHITE BLOOD COUNT 6.7 x10^3/uL (4.0-11.0)
[2021-09-22] MEDS ORDERED: IV NORMAL SALINE 1000ML BAG 1,000 ML IV SCH (18:00)
--- NOTE | 2021-09-22 20:09 | NUR ---
Traylor cultured w exception of blood... persistent recurring T 101 + axillary. Lab rechecked several times related to "issues " w results. All e-lyte replacements based on current results. Afebrile after cooling w wet/towels/fan. Sed- med bolus as needed thru day calms/relieves restlessness. at bedside briefly-update provided. cont w current POC
[2021-09-23] VITALS (24 sets, daily range): BP systolic 96–138; BP diastolic 40–80
[2021-09-23] MEDS: PIPERACILLIN/TAZOBACTAM 3.375 GM in IV NORMAL SALINE 50ML 50 ML IV SCH ×5 (00:09→23:41)
[2021-09-23] MEDS: HEPARIN for SUB-Q USE 5,000 UNIT/ML VIAL. SQ SCH ×3 (06:11→21:57)
[2021-09-23 06:41] LABS: CALCIUM 7.2 mg/dL (8.5-10.1); CREATININE 0.3 mg/dL (0.6-1.0); GFR 230.1; MAGNESIUM 1.2 mg/dL (1.8-2.4)
[2021-09-23 07:03] LABS: POTASSIUM 2.5 mmol/L (3.5-5.1)
[2021-09-23 07:43] LABS: BASE EXCESS ABG 1 mmol/L (-3-3); HCO3 ABG 25 mmol/L (21-28); PCO2 ABG 40 mmHg (35-46); PO2 ABG 84 mmHg (75-108); SAT O2 ABG 95 % (92-99)
[2021-09-23 07:45] LABS: FIO2 ABG 35
--- NOTE | 2021-09-23 08:14 | PDOC ---
PULMONARY PROGRESS NOTES DATE: 09/23/21 TIME: 08:14 Subjective Patient currently sedated currently on 35% FiO2 Hemodynamically stable Vitals Vital Signs Date Time Temp Pulse Resp B/P (MAP) Pulse Ox O2 Delivery O2 Flow Rate FiO2 09/23/21 07:25 100 Ventilator 09/23/21 06:00 80 20 132/62 09/23/21 04:00 98.1 98.1 Comments sedated on vent ros unable to obtain HEENT: Other (nc at perrl orally intubated nose clear neck no lad no thyromegaly) Lungs: Crackles Cardiovascular: S1, S2 Abdomen: Soft, Non-tender, Other (no mass) Extremities: No Edema Skin: Warm Labs Laboratory Tests Test 09/22/21 06:10 09/22/21 08:00 09/22/21 09:40 09/22/21 11:55 Sodium Level 155 mmol/L (136-145) 155 mmol/L (136-145) Potassium Level 3.2 mmol/L (3.5-5.1) 3.0 mmol/L (3.5-5.1) Chloride Level 121 mmol/L (98-107) 120 mmol/L (98-107) Carbon Dioxide Level 22 mmol/L (21-32) 22 mmol/L (21-32) Anion Gap 12 (6-14) 13 (6-14) Blood Urea Nitrogen 12 mg/dL (7-20) 13 mg/dL (7-20) Creatinine 0.5 mg/dL (0.6-1.0) 0.5 mg/dL (0.6-1.0) Estimated GFR (Cockcroft-Gault) 127.6 127.6 Glucose Level 73 mg/dL (70-99) 92 mg/dL (70-99) Calcium Level 8.7 mg/dL (8.5-10.1) 8.6 mg/dL (8.5-10.1) Magnesium Level 1.6 mg/dL (1.8-2.4) O2 Saturation 98 % (92-99) Arterial Blood pH 7.40 (7.35-7.45) Arterial Blood pCO2 at Patient Temp 37 mmHg (35-46) Arterial Blood pO2 at Patient Temp 105 mmHg (75-108) Arterial Blood HCO3 22 mmol/L (21-28) Arterial Blood Base Excess -3 mmol/L (-3-3) FiO2 35% ac 20 500 5 BUN/Creatinine Ratio 26 (6-20) Total Bilirubin 1.8 mg/dL (0.2-1.0) Aspartate Amino Transf (AST/SGOT) 61 U/L (15-37) Alanine Aminotransferase (ALT/SGPT) 93 U/L (14-59) Alkaline Phosphatase 242 U/L (46-116) Total Protein 5.4 g/dL (6.4-8.2) Albumin 2.0 g/dL (3.4-5.0) Albumin/Globulin Ratio 0.6 (1.0-1.7) White Blood Count 6.7 x10^3/uL (4.0-11.0) Red Blood Count 3.19 x10^6/uL (3.50-5.40) Hemoglobin 8.8 g/dL (12.0-15.5) Hematocrit 26.7 % (36.0-47.0) Mean Corpuscular Volume 84 fL (79-100) Mean Corpuscular Hemoglobin 28 pg (25-35) Mean Corpuscular Hemoglobin Concent 33 g/dL (31-37) Red Cell Distribution Width 14.6 % (11.5-14.5) Platelet Count 235 x10^3/uL (140-400) Test 09/23/21 05:55 09/23/21 07:40 Sodium Level 150 mmol/L (136-145) Potassium Level 2.5 mmol/L (3.5-5.1) Chloride Level 117 mmol/L (98-107) Carbon Dioxide Level 22 mmol/L (21-32) Anion Gap 11 (6-14) Blood Urea Nitrogen 9 mg/dL (7-20) Creatinine 0.3 mg/dL (0.6-1.0) Estimated GFR (Cockcroft-Gault) 230.1 Glucose Level 80 mg/dL (70-99) Calcium Level 7.2 mg/dL (8.5-10.1) Magnesium Level 1.2 mg/dL (1.8-2.4) O2 Saturation 95 % (92-99) Arterial Blood pH 7.42 (7.35-7.45) Arterial Blood pCO2 at Patient Temp 40 mmHg (35-46) Arterial Blood pO2 at Patient Temp 84 mmHg (75-108) Arterial Blood HCO3 25 mmol/L (21-28) Arterial Blood Base Excess 1 mmol/L (-3-3) FiO2 35 Laboratory Tests Test 09/22/21 09:40 09/22/21 11:55 09/23/21 05:55 09/23/21 07:40 Sodium Level 155 mmol/L (136-145) 150 mmol/L (136-145) Potassium Level 3.0 mmol/L (3.5-5.1) 2.5 mmol/L (3.5-5.1) Chloride Level 120 mmol/L (98-107) 117 mmol/L (98-107) Carbon Dioxide Level 22 mmol/L (21-32) 22 mmol/L (21-32) Anion Gap 13 (6-14) 11 (6-14) Blood Urea Nitrogen 13 mg/dL (7-20) 9 mg/dL (7-20) Creatinine 0.5 mg/dL (0.6-1.0) 0.3 mg/dL (0.6-1.0) Estimated GFR (Cockcroft-Gault) 127.6 230.1 BUN/Creatinine Ratio 26 (6-20) Glucose Level 92 mg/dL (70-99) 80 mg/dL (70-99) Calcium Level 8.6 mg/dL (8.5-10.1) 7.2 mg/dL (8.5-10.1) Total Bilirubin 1.8 mg/dL (0.2-1.0) Aspartate Amino Transf (AST/SGOT) 61 U/L (15-37) Alanine Aminotransferase (ALT/SGPT) 93 U/L (14-59) Alkaline Phosphatase 242 U/L (46-116) Total Protein 5.4 g/dL (6.4-8.2) Albumin 2.0 g/dL (3.4-5.0) Albumin/Globulin Ratio 0.6 (1.0-1.7) White Blood Count 6.7 x10^3/uL (4.0-11.0) Red Blood Count 3.19 x10^6/uL (3.50-5.40) Hemoglobin 8.8 g/dL (12.0-15.5) Hematocrit 26.7 % (36.0-47.0) Mean Corpuscular Volume 84 fL (79-100) Mean Corpuscular Hemoglobin 28 pg (25-35) Mean Corpuscular Hemoglobin Concent 33 g/dL (31-37) Red Cell Distribution Width 14.6 % (11.5-14.5) Platelet Count 235 x10^3/uL (140-400) Magnesium Level 1.2 mg/dL (1.8-2.4) O2 Saturation 95 % (92-99) Arterial Blood pH 7.42 (7.35-7.45) Arterial Blood pCO2 at Patient Temp 40 mmHg (35-46) Arterial Blood pO2 at Patient Temp 84 mmHg (75-108) Arterial Blood HCO3 25 mmol/L (21-28) Arterial Blood Base Excess 1 mmol/L (-3-3) FiO2 35 Medications Active Scripts Medications Dose Route/Sig Max Daily Dose Days Date Category Ibuprofen 800 Mg Tablet 800 Mg PO PRN Q6HRS PRN 09/19/21 Reported Acetaminophen 500 Mg Tablet 1,000 Mg PO PRN Q6HRS PRN 09/19/21 Reported Omeprazole 40 Mg Capsule.dr 40 Mg PO DAILY 09/19/21 Reported Comments Chest x-ray bilateral lower lobe atelectasis, infiltrates no change Impression . IMPRESSION: 1. Acute hypercapnic respiratory failure secondary to toxic encephalopathy from the effect of Ativan and morphine resulting in acute hypercapnia and respiratory arrest. She had brief asystole 2. History of meth use and heavy alcohol use. 3. Abnormal CT abdomen and pelvis with evidence of choledocholithiasis or mass. 4. Leukocytosis. 5. Hypokalemia, 6. Hyperbilirubinemia along with abnormal transaminases. 7. Moderate protein-calorie malnutrition. 8. History of tobaccoism. 9. Shock, multifactorial 10. Hypomagnesemia Plan . Updated 09/23 Remains hemodynamically stable, discussed with RN, will hold off on sedation and possible trial Broad-spectrum antibiotics Replace potassium and magnesium DVT prophylaxis No surgical plans for now as needed Haldol As needed Haldol updated 09/22 1. cont vent support setting reviewed not ready for sbt going through withdrawal 2. reviewed ABGs cxr am cxr 3. Continue broad-spectrum antibiotics. 4. elevate hob 5. Continue with PPI. 6. Continue with sedation. 7. pressors to keep map 60 8. Heparin for DVT prophylaxis. 9. Discussed with RN and RT. Chart reviewed. Imaging studies reviewed. NAWAF TANG MD Sep 23, 2021 08:14
--- NOTE | 2021-09-23 08:30 | PDOC ---
CHANDNI HINOJOSA REGRINDER OPERATOR 09/23/21829: SURGICAL PROGRESS NOTE DATE: 09/23/21 TIME: 08:27 Subjective vent, unable to response verbally Vital Signs Vital Signs Date Time Temp Pulse Resp B/P (MAP) Pulse Ox O2 Delivery O2 Flow Rate FiO2 09/23/21 07:25 100 Ventilator 09/23/21 06:00 80 20 132/62 09/23/21 04:00 98.1 98.1 I&O Intake and Output 09/23/21 07:00 Intake Total 1330.89 ml Output Total 938 ml Balance 392.89 ml Intake Oral 0 ml IV Total 1330.89 ml Output Urine Total 938 ml General: Other (moving around in bed) HEENT: Other (less jaundice ) Lungs: Other (vent) Abdomen: Soft Labs Laboratory Tests Test 09/22/21 06:10 09/22/21 08:00 09/22/21 09:40 09/22/21 11:55 Sodium Level 155 mmol/L (136-145) 155 mmol/L (136-145) Potassium Level 3.2 mmol/L (3.5-5.1) 3.0 mmol/L (3.5-5.1) Chloride Level 121 mmol/L (98-107) 120 mmol/L (98-107) Carbon Dioxide Level 22 mmol/L (21-32) 22 mmol/L (21-32) Anion Gap 12 (6-14) 13 (6-14) Blood Urea Nitrogen 12 mg/dL (7-20) 13 mg/dL (7-20) Creatinine 0.5 mg/dL (0.6-1.0) 0.5 mg/dL (0.6-1.0) Estimated GFR (Cockcroft-Gault) 127.6 127.6 Glucose Level 73 mg/dL (70-99) 92 mg/dL (70-99) Calcium Level 8.7 mg/dL (8.5-10.1) 8.6 mg/dL (8.5-10.1) Magnesium Level 1.6 mg/dL (1.8-2.4) O2 Saturation 98 % (92-99) Arterial Blood pH 7.40 (7.35-7.45) Arterial Blood pCO2 at Patient Temp 37 mmHg (35-46) Arterial Blood pO2 at Patient Temp 105 mmHg (75-108) Arterial Blood HCO3 22 mmol/L (21-28) Arterial Blood Base Excess -3 mmol/L (-3-3) FiO2 35% ac 20 500 5 BUN/Creatinine Ratio 26 (6-20) Total Bilirubin 1.8 mg/dL (0.2-1.0) Aspartate Amino Transf (AST/SGOT) 61 U/L (15-37) Alanine Aminotransferase (ALT/SGPT) 93 U/L (14-59) Alkaline Phosphatase 242 U/L (46-116) Total Protein 5.4 g/dL (6.4-8.2) Albumin 2.0 g/dL (3.4-5.0) Albumin/Globulin Ratio 0.6 (1.0-1.7) White Blood Count 6.7 x10^3/uL (4.0-11.0) Red Blood Count 3.19 x10^6/uL (3.50-5.40) Hemoglobin 8.8 g/dL (12.0-15.5) Hematocrit 26.7 % (36.0-47.0) Mean Corpuscular Volume 84 fL (79-100) Mean Corpuscular Hemoglobin 28 pg (25-35) Mean Corpuscular Hemoglobin Concent 33 g/dL (31-37) Red Cell Distribution Width 14.6 % (11.5-14.5) Platelet Count 235 x10^3/uL (140-400) Test 09/23/21 05:55 09/23/21 07:40 Sodium Level 150 mmol/L (136-145) Potassium Level 2.5 mmol/L (3.5-5.1) Chloride Level 117 mmol/L (98-107) Carbon Dioxide Level 22 mmol/L (21-32) Anion Gap 11 (6-14) Blood Urea Nitrogen 9 mg/dL (7-20) Creatinine 0.3 mg/dL (0.6-1.0) Estimated GFR (Cockcroft-Gault) 230.1 Glucose Level 80 mg/dL (70-99) Calcium Level 7.2 mg/dL (8.5-10.1) Magnesium Level 1.2 mg/dL (1.8-2.4) O2 Saturation 95 % (92-99) Arterial Blood pH 7.42 (7.35-7.45) Arterial Blood pCO2 at Patient Temp 40 mmHg (35-46) Arterial Blood pO2 at Patient Temp 84 mmHg (75-108) Arterial Blood HCO3 25 mmol/L (21-28) Arterial Blood Base Excess 1 mmol/L (-3-3) FiO2 35 Laboratory Tests Test 09/22/21 09:40 09/22/21 11:55 09/23/21 05:55 09/23/21 07:40 Sodium Level 155 mmol/L (136-145) 150 mmol/L (136-145) Potassium Level 3.0 mmol/L (3.5-5.1) 2.5 mmol/L (3.5-5.1) Chloride Level 120 mmol/L (98-107) 117 mmol/L (98-107) Carbon Dioxide Level 22 mmol/L (21-32) 22 mmol/L (21-32) Anion Gap 13 (6-14) 11 (6-14) Blood Urea Nitrogen 13 mg/dL (7-20) 9 mg/dL (7-20) Creatinine 0.5 mg/dL (0.6-1.0) 0.3 mg/dL (0.6-1.0) Estimated GFR (Cockcroft-Gault) 127.6 230.1 BUN/Creatinine Ratio 26 (6-20) Glucose Level 92 mg/dL (70-99) 80 mg/dL (70-99) Calcium Level 8.6 mg/dL (8.5-10.1) 7.2 mg/dL (8.5-10.1) Total Bilirubin 1.8 mg/dL (0.2-1.0) Aspartate Amino Transf (AST/SGOT) 61 U/L (15-37) Alanine Aminotransferase (ALT/SGPT) 93 U/L (14-59) Alkaline Phosphatase 242 U/L (46-116) Total Protein 5.4 g/dL (6.4-8.2) Albumin 2.0 g/dL (3.4-5.0) Albumin/Globulin Ratio 0.6 (1.0-1.7) White Blood Count 6.7 x10^3/uL (4.0-11.0) Red Blood Count 3.19 x10^6/uL (3.50-5.40) Hemoglobin 8.8 g/dL (12.0-15.5) Hematocrit 26.7 % (36.0-47.0) Mean Corpuscular Volume 84 fL (79-100) Mean Corpuscular Hemoglobin 28 pg (25-35) Mean Corpuscular Hemoglobin Concent 33 g/dL (31-37) Red Cell Distribution Width 14.6 % (11.5-14.5) Platelet Count 235 x10^3/uL (140-400) Magnesium Level 1.2 mg/dL (1.8-2.4) O2 Saturation 95 % (92-99) Arterial Blood pH 7.42 (7.35-7.45) Arterial Blood pCO2 at Patient Temp 40 mmHg (35-46) Arterial Blood pO2 at Patient Temp 84 mmHg (75-108) Arterial Blood HCO3 25 mmol/L (21-28) Arterial Blood Base Excess 1 mmol/L (-3-3) FiO2 35 Problem List Problems Medical Problems: (1) Cholecystitis, acute with cholelithiasis Status: Acute (2) Choledocholithiasis Status: Acute (3) Hyperbilirubinemia Status: Acute (4) Obstructive jaundice Status: Acute (5) Transaminitis Status: Acute Assessment/Plan last bili 1.8 supportive care no surgical plans Justicifation of Admission Dx: Justifications for Admission: Justification of Admission Dx: Yes Respiratory Failure: Mechanical Ventilation ISAEL JOHNSON MD 09/23/21 1547: SURGICAL PROGRESS NOTE Assessment/Plan Pt seen and examined. Agree with Ms. Hinojosa's note Pt on vent abd soft, bilirubin improved cont supportive care. CHANDNI HINOJOSA REGRINDER OPERATOR Sep 23, 2021 08:30 ISAEL JOHNSON MD Sep 23, 2021 15:47
--- NOTE | 2021-09-23 08:31 | RAD ---
XR CHEST 1V History: Reason: resp fail 109 / Spl. Instructions: / History: Comparison: September 20, 2021 Findings: Stable endotracheal tube and enteric tube. Patchy bibasilar opacities, unchanged. Prior granulomatous disease within the chest. Unchanged heart size. No pneumothorax. No pleural effusion. Impression: 1. Stable appearance of the chest compared to prior. Electronically signed by: Kirby Oliva DO (09/23/2021 8:28 AM) [id number]
[2021-09-23] MEDS: POTASSIUM CHLORIDE 10MEQ 100 ML IV SCH ×12 (08:37→21:56)
[2021-09-23] MEDS: PANTOPRAZOLE IV PUSH 40 MG VIAL. IVP SCH (08:37)
[2021-09-23 08:48] LABS: HEMATOCRIT 28.8 % (36.0-47.0); HEMOGLOBIN 9.6 g/dL (12.0-15.5); RED BLOOD COUNT 3.47 x10^6/uL (3.50-5.40); RED CELL DISTRIBUTION WIDTH 14.5 % (11.5-14.5); WHITE BLOOD COUNT 6.1 x10^3/uL (4.0-11.0)
[2021-09-23] MEDS: SENNOSIDES/DOCUSATE 8.6/50MG TABLET. PO SCH ×2 (08:58→20:44)
[2021-09-23] MEDS: LACTOBACILLUS RHAMNOSUS GG 1 CAPSULE. PO SCH ×2 (08:59→20:44)
[2021-09-23] MEDS: MULTIVIT INFUSN ADULT K IV SCH (09:46)
[2021-09-23] MEDS: [UNRECOGNIZED DRUG - OTHER] IV SCH (09:46)
[2021-09-23] MEDS: FOLIC ACID IV SCH (09:46)
[2021-09-23] MEDS: THIAMINE IV SCH (09:46)
--- NOTE | 2021-09-23 10:27 | PDOC ---
Date of Service: DATE: 09/23/21 TIME: 10:20 Objective: Objective: OG output not charted. D/w nurse - off pressors. CEA normal. Vital Signs: Vital Signs Date Time Temp Pulse Resp B/P (MAP) Pulse Ox O2 Delivery O2 Flow Rate FiO2 09/23/21 09:00 88 20 132/56 100 Ventilator 09/23/21 08:00 98.5 98.5 Labs: Laboratory Tests Test 09/22/21 11:55 09/23/21 05:55 09/23/21 07:27 09/23/21 07:40 White Blood Count 6.7 x10^3/uL 6.1 x10^3/uL Red Blood Count 3.19 x10^6/uL 3.47 x10^6/uL Hemoglobin 8.8 g/dL 9.6 g/dL Hematocrit 26.7 % 28.8 % Mean Corpuscular Volume 84 fL 83 fL Mean Corpuscular Hemoglobin 28 pg 28 pg Mean Corpuscular Hemoglobin Concent 33 g/dL 33 g/dL Red Cell Distribution Width 14.6 % 14.5 % Platelet Count 235 x10^3/uL 229 x10^3/uL Sodium Level 150 mmol/L Potassium Level 2.5 mmol/L Chloride Level 117 mmol/L Carbon Dioxide Level 22 mmol/L Anion Gap 11 Blood Urea Nitrogen 9 mg/dL Creatinine 0.3 mg/dL Estimated GFR (Cockcroft-Gault) 230.1 Glucose Level 80 mg/dL Calcium Level 7.2 mg/dL Magnesium Level 1.2 mg/dL O2 Saturation 95 % Arterial Blood pH 7.42 Arterial Blood pCO2 at Patient Temp 40 mmHg Arterial Blood pO2 at Patient Temp 84 mmHg Arterial Blood HCO3 25 mmol/L Arterial Blood Base Excess 1 mmol/L FiO2 35 BLOOD CULTURE Preliminary NO GROWTH AFTER 3 DAYS CULTURE URINE Final NO GROWTH ON 09/23/21 at 0839 ORDERED: CULT SPUTUM GRAM STAIN RESP Final PMNS (WBCS): MODERATE SQUAMOUS EPI CELL: RARE GRAM NEGATIVE RODS: FEW YEAST: FEW This specimen is of good quality and is acceptable for routine bacterial culture. Culture results to follow. Testing performed by [place] [id number] director of consulting services: Sima Barrios MD CULTURE RESPIRATORY Preliminary MODERATE GRAM NEGATIVE RODS on 09/23/21 at 0830. Imaging: CXR 09/23 Impression: 1. Stable appearance of the chest compared to prior. Echo 09/20 <Conclusion> The left ventricular systolic function is normal. The ejection fraction is 65-70%. There is normal LV segmental wall motion. Trace mitral regurgitation. Mild tricuspid regurgitation. The PA pressure was estimated at 40 mmHg. There is no evidence of significant pericardial effusion. PE: GEN: intubated LUNGS: vent/clear HEART: RR ABD: soft, quiet, OG bilious SKIN: +jaundice NEURO/PSYCH: drowsy, some sedation A/P: Abd pain, n/v Resp failure Hypernatremia, hypokalemia, elevated LFTs (better) Abnormal imaging: dilated CBD (2cm), dilated intrahepatic ducts, possible stone/mass in distal CBD, cholelithiasis +meth -- Okay to stop OG suction/try tube feeds per GI. Follow labs. Justicifation of Admission Dx: Justifications for Admission: Justification of Admission Dx: Yes Respiratory Failure: Mechanical Ventilation MILTON WEI Sep 23, 2021 10:27
[2021-09-23] MEDS: MIDAZOLAM 100mg/100ml NS BAG 100 ML IV PRN (11:23)
[2021-09-23] MEDS ORDERED: HALOPERIDOL LACTATE 5 MG/ML VIAL. IVP PRN (12:30)
--- NOTE | 2021-09-23 12:41 | PDOC ---
[facility] PROGRESS NOTE Date of Service DOS: DATE: 09/23/21 TIME: 12:39 Chief Complaint Chief Complaint Sepsis Choledocholithiasis Acute hypoxic respiratory failure Interstitial pneumonitis/aspiration pneumonia Transaminitis Hypokalemia Hypomagnesemia Methamphetamine abuse History of Present Illness History of Present Illness 09/23/2021 Patient seen and examined in the ICU She remains on the ventilator AC/20/500/30 5% with 5 of PEEP Art line functioning well Has a banana bag pain Sedated with fentanyl and Versed Potassium replacement in progress Normal saline at TKO Discussed with case management Discussed with RN Chart reviewed She remains critically ill 09/21: Febrile, tachycardic. She remains intubated with PEEP 5, FiO2 35%. Continue Zosyn for choledocholithiasis. Plan for possible cholecystectomy if stabilizes. Critical care time 30 minutes spent reviewing charts, reviewing labs, imaging, discussion with RN. 09/22: Afebrile. FiO2 35, PEEP 5. Sodium 155, potassium 3.0, magnesium 1.6. Ordered D5 water with potassium, and 2 g MG sulfate. Nurse reports that she discussed with lab about precipitous drop in hemoglobin of 4 g. Due to no obvious signs of bleeding we will recheck, and if accurate transfuse 1 unit PRBCs and consult GI. Per general surgery, currently prohibitive surgical candidate. 30 minutes critical care time spent reviewing charts, reviewing labs, reviewing imaging, discussion with RN. Vitals/I&O Vitals/I&O: Vital Signs Date Time Temp Pulse Resp B/P (MAP) Pulse Ox O2 Delivery O2 Flow Rate FiO2 09/23/21 12:21 100 Ventilator 09/23/21 12:00 98.8 98 20 138/80 98.8 I & O 09/22/21 09/22/21 09/23/21 15:00 23:00 07:00 Intake Total 0 ml 1000 ml 330.89 ml Output Total 350 ml 395 ml 193 ml Balance -350 ml 605 ml 137.89 ml Physical Exam General: Other (moving around in bed) Heart: Regular rate (SR) Lungs: Crackles Abdomen: Soft Extremities: No clubbing, No cyanosis Skin: No breakdown Labs Labs: Laboratory Tests Test 09/23/21 05:55 09/23/21 07:27 09/23/21 07:40 Sodium Level 150 mmol/L (136-145) Potassium Level 2.5 mmol/L (3.5-5.1) Chloride Level 117 mmol/L (98-107) Carbon Dioxide Level 22 mmol/L (21-32) Anion Gap 11 (6-14) Blood Urea Nitrogen 9 mg/dL (7-20) Creatinine 0.3 mg/dL (0.6-1.0) Estimated GFR (Cockcroft-Gault) 230.1 Glucose Level 80 mg/dL (70-99) Calcium Level 7.2 mg/dL (8.5-10.1) Magnesium Level 1.2 mg/dL (1.8-2.4) White Blood Count 6.1 x10^3/uL (4.0-11.0) Red Blood Count 3.47 x10^6/uL (3.50-5.40) Hemoglobin 9.6 g/dL (12.0-15.5) Hematocrit 28.8 % (36.0-47.0) Mean Corpuscular Volume 83 fL (79-100) Mean Corpuscular Hemoglobin 28 pg (25-35) Mean Corpuscular Hemoglobin Concent 33 g/dL (31-37) Red Cell Distribution Width 14.5 % (11.5-14.5) Platelet Count 229 x10^3/uL (140-400) O2 Saturation 95 % (92-99) Arterial Blood pH 7.42 (7.35-7.45) Arterial Blood pCO2 at Patient Temp 40 mmHg (35-46) Arterial Blood pO2 at Patient Temp 84 mmHg (75-108) Arterial Blood HCO3 25 mmol/L (21-28) Arterial Blood Base Excess 1 mmol/L (-3-3) FiO2 35 Assessment and Plan Assessmemt and Plan Problems Medical Problems: (1) Cholecystitis, acute with cholelithiasis Status: Acute (2) Choledocholithiasis Status: Acute (3) Hyperbilirubinemia Status: Acute (4) Obstructive jaundice Status: Acute (5) Transaminitis Status: Acute Sepsis Choledocholithiasis Acute hypoxic respiratory failure Interstitial pneumonitis/aspiration pneumonia Transaminitis Hypokalemia Hypomagnesemia Methamphetamine abuse Plan ICU monitoring We are trying to wean her off the vent IV antibiotics Monitor art line Continue sedation with fentanyl and Versed Continue banana bag and alcohol withdrawal protocol Home meds when possible DVT prophylaxis Full code Potassium replacement Continue normal saline at TKO Trend labs Prognosis guarded CC time 32 min Comment Review of Relevant I have reviewed the following items michael (where applicable) has been applied. Medications: Current Medications Medications (Trade) Dose Ordered Sig/Mitch Route PRN Reason Start Time Stop Time Status Last Admin Dose Admin Potassium Chloride/Water 100 ml @ 100 mls/hr Q1H IV 09/23/21 08:00 09/23/21 19:59 09/23/21 12:11 Justifications for Admission Other Justification RACH DIEHL III DO Sep 23, 2021 12:41
[2021-09-23] MEDS: DEXMEDETOMIDINE 400 MCG in IV NORMAL SALINE 100ML 96 ML IV PRN ×2 (14:22→21:23)
--- NOTE | 2021-09-23 17:38 | PDOC ---
PROGRESS NOTES Date of Service DATE: 09/23/21 TIME: 17:35 Subjective Subjective Patient seen and examined Objective Objective Vital Signs Date Time Temp Pulse Resp B/P (MAP) Pulse Ox O2 Delivery O2 Flow Rate FiO2 09/23/21 15:42 100 Ventilator 09/23/21 15:00 86 20 112/48 09/23/21 12:00 98.8 98.8 09/22/21 05:27 15.0 Intake and Output0 09/23/21 07:00 Intake Total 1330.89 ml Output Total 938 ml Balance 392.89 ml Intake Oral 0 ml IV Total 1330.89 ml Output Urine Total 938 ml Physical Exam Abdomen: Normal bowel sounds Heart: Regular rate General: Other (Remains on a ventilator.) Lungs: Other (Decreased breath sounds.) Assessment Assessment Problems Medical Problems: (1) Cholecystitis, acute with cholelithiasis Status: Acute (2) Choledocholithiasis Status: Acute (3) Hyperbilirubinemia Status: Acute (4) Obstructive jaundice Status: Acute (5) Transaminitis Status: Acute 1. Obstructive jaundice with suspected choledocholithiasis: will need future ERCP. GS/GI following 2. Polysubstance abuse: with methamphetamines and ETOH 3. Hx of HTN 4. Encephalopathy: possible initial development of DT 5. S/P Cardiopulmonary arrest: noted asystole, unclear details and duration but suspected due to respiratory failure. Remains intubated and followed by the pulmonary service. 6. Hypokalemia/hypomagnesemia 7. Dehydration 8. Arrhythmia: Brief period x1 with what appears to be brief AFIB RVR with aberrant conduction that spontaneously converted to SR. multiple culprits as noted above - no further episodes on tele. Echo with intact LV systolic function. 9. Fever/leukocytosis 10. Shock: multifactorial. Remains on pressor support. Comment Review of Relevant I have reviewed the following items michael (where applicable) has been applied. Labs Laboratory Tests Test 09/22/21 06:10 09/22/21 08:00 09/22/21 09:40 09/22/21 11:55 Sodium Level 155 mmol/L (136-145) 155 mmol/L (136-145) Potassium Level 3.2 mmol/L (3.5-5.1) 3.0 mmol/L (3.5-5.1) Chloride Level 121 mmol/L (98-107) 120 mmol/L (98-107) Carbon Dioxide Level 22 mmol/L (21-32) 22 mmol/L (21-32) Anion Gap 12 (6-14) 13 (6-14) Blood Urea Nitrogen 12 mg/dL (7-20) 13 mg/dL (7-20) Creatinine 0.5 mg/dL (0.6-1.0) 0.5 mg/dL (0.6-1.0) Estimated GFR (Cockcroft-Gault) 127.6 127.6 Glucose Level 73 mg/dL (70-99) 92 mg/dL (70-99) Calcium Level 8.7 mg/dL (8.5-10.1) 8.6 mg/dL (8.5-10.1) Magnesium Level 1.6 mg/dL (1.8-2.4) O2 Saturation 98 % (92-99) Arterial Blood pH 7.40 (7.35-7.45) Arterial Blood pCO2 at Patient Temp 37 mmHg (35-46) Arterial Blood pO2 at Patient Temp 105 mmHg (75-108) Arterial Blood HCO3 22 mmol/L (21-28) Arterial Blood Base Excess -3 mmol/L (-3-3) FiO2 35% ac 20 500 5 BUN/Creatinine Ratio 26 (6-20) Total Bilirubin 1.8 mg/dL (0.2-1.0) Aspartate Amino Transf (AST/SGOT) 61 U/L (15-37) Alanine Aminotransferase (ALT/SGPT) 93 U/L (14-59) Alkaline Phosphatase 242 U/L (46-116) Total Protein 5.4 g/dL (6.4-8.2) Albumin 2.0 g/dL (3.4-5.0) Albumin/Globulin Ratio 0.6 (1.0-1.7) White Blood Count 6.7 x10^3/uL (4.0-11.0) Red Blood Count 3.19 x10^6/uL (3.50-5.40) Hemoglobin 8.8 g/dL (12.0-15.5) Hematocrit 26.7 % (36.0-47.0) Mean Corpuscular Volume 84 fL (79-100) Mean Corpuscular Hemoglobin 28 pg (25-35) Mean Corpuscular Hemoglobin Concent 33 g/dL (31-37) Red Cell Distribution Width 14.6 % (11.5-14.5) Platelet Count 235 x10^3/uL (140-400) Test 09/23/21 05:55 09/23/21 07:27 09/23/21 07:40 Sodium Level 150 mmol/L (136-145) Potassium Level 2.5 mmol/L (3.5-5.1) Chloride Level 117 mmol/L (98-107) Carbon Dioxide Level 22 mmol/L (21-32) Anion Gap 11 (6-14) Blood Urea Nitrogen 9 mg/dL (7-20) Creatinine 0.3 mg/dL (0.6-1.0) Estimated GFR (Cockcroft-Gault) 230.1 Glucose Level 80 mg/dL (70-99) Calcium Level 7.2 mg/dL (8.5-10.1) Magnesium Level 1.2 mg/dL (1.8-2.4) White Blood Count 6.1 x10^3/uL (4.0-11.0) Red Blood Count 3.47 x10^6/uL (3.50-5.40) Hemoglobin 9.6 g/dL (12.0-15.5) Hematocrit 28.8 % (36.0-47.0) Mean Corpuscular Volume 83 fL (79-100) Mean Corpuscular Hemoglobin 28 pg (25-35) Mean Corpuscular Hemoglobin Concent 33 g/dL (31-37) Red Cell Distribution Width 14.5 % (11.5-14.5) Platelet Count 229 x10^3/uL (140-400) O2 Saturation 95 % (92-99) Arterial Blood pH 7.42 (7.35-7.45) Arterial Blood pCO2 at Patient Temp 40 mmHg (35-46) Arterial Blood pO2 at Patient Temp 84 mmHg (75-108) Arterial Blood HCO3 25 mmol/L (21-28) Arterial Blood Base Excess 1 mmol/L (-3-3) FiO2 35 Laboratory Tests Test 09/23/21 05:55 09/23/21 07:27 09/23/21 07:40 Sodium Level 150 mmol/L (136-145) Potassium Level 2.5 mmol/L (3.5-5.1) Chloride Level 117 mmol/L (98-107) Carbon Dioxide Level 22 mmol/L (21-32) Anion Gap 11 (6-14) Blood Urea Nitrogen 9 mg/dL (7-20) Creatinine 0.3 mg/dL (0.6-1.0) Estimated GFR (Cockcroft-Gault) 230.1 Glucose Level 80 mg/dL (70-99) Calcium Level 7.2 mg/dL (8.5-10.1) Magnesium Level 1.2 mg/dL (1.8-2.4) White Blood Count 6.1 x10^3/uL (4.0-11.0) Red Blood Count 3.47 x10^6/uL (3.50-5.40) Hemoglobin 9.6 g/dL (12.0-15.5) Hematocrit 28.8 % (36.0-47.0) Mean Corpuscular Volume 83 fL (79-100) Mean Corpuscular Hemoglobin 28 pg (25-35) Mean Corpuscular Hemoglobin Concent 33 g/dL (31-37) Red Cell Distribution Width 14.5 % (11.5-14.5) Platelet Count 229 x10^3/uL (140-400) O2 Saturation 95 % (92-99) Arterial Blood pH 7.42 (7.35-7.45) Arterial Blood pCO2 at Patient Temp 40 mmHg (35-46) Arterial Blood pO2 at Patient Temp 84 mmHg (75-108) Arterial Blood HCO3 25 mmol/L (21-28) Arterial Blood Base Excess 1 mmol/L (-3-3) FiO2 35 Microbiology 09/22/21 Urine Culture - Final, Complete 09/22/21 Blood Culture - Preliminary, Resulted NO GROWTH AFTER 1 DAY 09/22/21 Respiratory Culture Gram Stain - Final, Resulted 09/22/21 Respiratory Culture - Preliminary, Resulted Enterobacter Cloacae Complex Medications Current Medications Sodium Chloride 1,000 ml @ 1,000 mls/hr 1X ONCE IV Last administered on 09/19/21at 15:49; Start 09/19/21 at 15:30; Stop 09/19/21 at 16:29; Status DC Lorazepam (Ativan Inj) 1 mg 1X ONCE IVP Last administered on 09/19/21at 15:48; Start 09/19/21 at 15:30; Stop 09/19/21 at 15:31; Status DC Ondansetron HCl (Zofran) 4 mg 1X ONCE IVP Last administered on 09/19/21at 15:47; Start 09/19/21 at 15:30; Stop 09/19/21 at 15:31; Status DC Fentanyl Citrate (Fentanyl 2ml Vial) 50 mcg 1X ONCE IVP Last administered on 09/19/21at 15:48; Start 09/19/21 at 15:30; Stop 09/19/21 at 15:31; Status DC Potassium Chloride (Klor-Con) 40 meq 1X ONCE PO Last administered on 09/19/21at 17:17; Start 09/19/21 at 17:15; Stop 09/19/21 at 17:16; Status DC Iohexol (Omnipaque 300 Mg/ml) 75 ml 1X ONCE IV Last administered on 09/19/21at 17:24; Start 09/19/21 at 17:15; Stop 09/19/21 at 17:16; Status DC Piperacillin Sod/ Tazobactam Sod 3.375 gm/Sodium Chloride 50 ml @ 100 mls/hr 1X ONCE IV Last administered on 09/19/21at 17:38; Start 09/19/21 at 17:15; Stop 09/19/21 at 17:44; Status DC Morphine Sulfate (Morphine Sulfate) 4 mg 1X ONCE IVP Last administered on 09/19/21at 17:37; Start 09/19/21 at 17:15; Stop 09/19/21 at 17:16; Status DC Potassium Chloride/Water 100 ml @ 50 mls/hr 1X ONCE IV Last administered on 09/19/21at 18:45; Start 09/19/21 at 17:30; Stop 09/19/21 at 19:29; Status DC Sodium Chloride 1,000 ml @ 1,000 mls/hr 1X ONCE IV Last administered on 09/19/21at 18:16; Start 09/19/21 at 17:45; Stop 09/19/21 at 18:44; Status DC Multivitamins 10 ml/Thiamine HCl 100 mg/Folic Acid 1 mg/Sodium Chloride 1,011.2 ml @ 100 mls/ hr DAILY IV Last administered on 09/21/21at 08:58; Start 09/19/21 at 18:00; Stop 09/22/21 at 08:10; Status DC Multivitamins (Thera M Plus) 1 tab DAILY PO ; Start 09/24/21 at 09:00 Folic Acid (Folic Acid) 1 mg DAILY PO ; Start 09/24/21 at 09:00 Thiamine Mononitrate (Vitamin B-1) 100 mg DAILY PO ; Start 09/24/21 at 09:00 Lorazepam (Ativan) 4 mg PRN Q1HR PRN PO For CIWA 8-14 Last administered on 09/19/21at 20:17; Start 09/19/21 at 17:45 Lorazepam (Ativan) 8 mg PRN Q1HR PRN PO For CIWA 15 or greater; Start 09/19/21 at 17:45 Sodium Chloride 1,000 ml @ 1,000 mls/hr 1X ONCE IV Last administered on 09/19/21at 18:15; Start 09/19/21 at 18:15; Stop 09/19/21 at 19:14; Status DC Ondansetron HCl (Zofran) 4 mg PRN Q6HRS PRN IVP NAUSEA/VOMITING; Start 09/19/21 at 20:30 Calcium Carbonate/ Glycine (Tums) 500 mg PRN Q3HRS PRN PO UPSET STOMACH; Start 09/19/21 at 20:30 Info (Non-Icu Electrolyte Protocol) 1 ea PRN DAILY PRN MC SEE COMMENTS; Start 09/19/21 at 20:30; Stop 09/20/21 at 01:12; Status DC Morphine Sulfate (Morphine Sulfate) 1 mg PRN Q1HR PRN IV PAIN; Start 09/19/21 at 20:30 Morphine Sulfate (Morphine Sulfate) 2 mg PRN Q1HR PRN IV PAIN Last administered on 09/19/21at 20:15; Start 09/19/21 at 20:30 Acetaminophen (Tylenol) 650 mg PRN Q6HRS PRN PO Headaches, Temp > 101.5F; Start 09/19/21 at 20:30 Senna/Docusate Sodium (Senna Plus) 1 tab BID PO Last administered on 09/23/21at 08:58; Start 09/19/21 at 21:00 Heparin Sodium (Porcine) (Heparin Sodium) 5,000 unit Q8HRS SQ Last administered on 09/23/21at 14:23; Start 09/19/21 at 22:00 Info (Icu Electrolyte Protocol) 1 ea CONT PRN PRN MC SEE COMMENTS; Start 09/20/21 at 01:15; Stop 09/23/21 at 00:13; Status DC Etomidate (Amidate) 20 mg STK-MED ONCE IV ; Start 09/20/21 at 01:20; Stop 09/20/21 at 01:21; Status DC Succinylcholine Chloride (Anectine) 200 mg STK-MED ONCE .ROUTE ; Start 09/20/21 at 01:20; Stop 09/20/21 at 01:21; Status DC Fentanyl Citrate 30 ml @ 2.5 mls/hr CONT PRN IV SEE PROTOCOL Last administered on 09/23/21at 11:22; Start 09/20/21 at 01:30 Propofol 100 ml @ 1.95 mls/hr CONT PRN IV PER PROTOCOL Last administered on 09/20/21at 01:42; Start 09/20/21 at 01:30 Vecuronium [place] (Norcuron Bolus) 6 mg PRN 1X PRN IV VENT INDUCTION; Start 09/20/21 at 01:30; Stop 09/21/21 at 01:29; Status DC Influenza Virus Vaccine Quadrival (Flulaval Quad [id number] Syringe) 0.5 ml ONCE ONCE VAX IM ; Start 09/20/21 at 03:45; Stop 09/20/21 at 03:46; Status UNV Dexmedetomidine HCl 400 mcg/ Sodium Chloride 100 ml @ 3.25 mls/hr CONT PRN IV PER PROTOCOL Last administered on 09/23/21at 14:22; Start 09/20/21 at 05:45 Midazolam HCl 100 ml @ 1 mls/hr CONT PRN IV SEE PROTOCOL Last administered on 09/23/21at 11:23; Start 09/20/21 at 07:30 Norepinephrine Bitartrate 8 mg/ Dextrose 258 ml @ 12.578 mls/ hr CONT PRN IV PER PROTOCOL Last administered on 09/20/21at 19:42; Start 09/20/21 at 07:30 Piperacillin Sod/ Tazobactam Sod (Zosyn Per Pharmacy) 1 each PRN DAILY PRN MC SEE COMMENTS; Start 09/20/21 at 08:30 Piperacillin Sod/ Tazobactam Sod 3.375 gm/Sodium Chloride 50 ml @ 100 mls/hr Q6HRS IV Last administered on 09/23/21at 12:10; Start 09/20/21 at 09:00 Pantoprazole Sodium (PROTONIX VIAL for IV PUSH) 40 mg DAILYAC IVP Last admi nistered on 09/23/21at 08:37; Start 09/20/21 at 09:00 Potassium Chloride/Water 100 ml @ 100 mls/hr Q1H IV Last administered on 09/20/21at 15:22; Start 09/20/21 at 12:00; Stop 09/20/21 at 15:59; Status DC Lactobacillus Rhamnosus (Culturelle) 1 cap BID PO ; Start 09/20/21 at 21:00 Acetaminophen (Tylenol) 650 mg PRN Q6HRS PRN PEG MILD PAIN / TEMP > 100.3'F Last administered on 09/21/21at 20:01; Start 09/20/21 at 13:30 Magnesium Sulfate 50 ml @ 25 mls/hr 1X ONCE IV Last administered on 09/20/21at 15:22; Start 09/20/21 at 15:15; Stop 09/20/21 at 17:14; Status DC Info (Icu Electrolyte Protocol) 1 ea CONT PRN PRN MC PER PROTOCOL; Start 09/21/21 at 09:45 Magnesium Sulfate 100 ml @ 25 mls/hr 1X ONCE IV Last administered on 09/21/21at 10:11; Start 09/21/21 at 10:00; Stop 09/21/21 at 13:59; Status DC Potassium Chloride/Water 100 ml @ 100 mls/hr Q1H IV Last administered on 09/21/21at 17:59; Start 09/21/21 at 15:00; Stop 09/21/21 at 18:59; Status DC Multivitamins 10 ml/Thiamine HCl 100 mg/Folic Acid 1 mg/Dextrose 1,011.2 ml @ 100.001 mls/hr DAILY IV Last administered on 09/23/21at 09:46; Start 09/22/21 at 09:00; Stop 09/23/21 at 19:07 Dextrose 500 ml @ 100 mls/hr 1X ONCE IV ; Start 09/22/21 at 10:45; Stop 09/22/21 at 10:42; Status DC Magnesium Sulfate 50 ml @ 25 mls/hr 1X ONCE IV Last administered on 09/22/21at 11:40; Start 09/22/21 at 10:45; Stop 09/22/21 at 12:44; Status DC Potassium Chloride/Dextrose 1,000 ml @ 100 mls/hr Q10H ONCE IV Last administered on 09/22/21at 11:13; Start 09/22/21 at 10:45; Stop 09/22/21 at 20:44; Status DC Sodium Chloride 1,000 ml @ 75 mls/hr [id number] IV ; Start 09/22/21 at 18:00; Status Cancel Potassium Chloride/Water 100 ml @ 100 mls/hr Q1H IV Last administered on 09/23/21at 17:33; Start 09/23/21 at 08:00; Stop 09/23/21 at 19:59 Haloperidol Lactate (Haldol Inj) 5 mg PRN Q6HRS PRN IVP AGITATION; Start 09/23/21 at 12:30 Active Scripts Active Reported Ibuprofen 800 Mg Tablet 800 Mg PO PRN Q6HRS PRN Acetaminophen 500 Mg Tablet 1,000 Mg PO PRN Q6HRS PRN Omeprazole 40 Mg Capsule.dr 40 Mg PO DAILY Vitals/I & O Vital Sign - Last 24 Hours 09/22/21 09/22/21 09/22/21 09/22/21 18:00 19:00 20:00 20:00 Pulse 82 84 Resp 20 20 B/P (MAP) 144/72 120/62 140/70 (93) Pulse Ox 100 O2 Delivery Ventilator Ventilator Mechanical Ventilator 09/22/21 09/22/21 09/22/21 09/22/21 20:00 20:30 21:00 22:00 Temp 98.9 98.9 Pulse 84 76 82 Resp 20 20 20 B/P (MAP) 140/70 108/84 121/58 Pulse Ox 100 100 100 100 O2 Delivery Ventilator Ventilator Ventilator Ventilator 09/22/21 09/22/21 09/23/21 09/23/21 22:30 23:00 00:00 00:00 Pulse 80 74 Resp 20 B/P (MAP) 114/54 126/56 (79) Pulse Ox 100 100 O2 Delivery Ventilator Ventilator Mechanical Ventilator 09/23/21 09/23/21 09/23/21 09/23/21 00:00 00:39 01:00 02:00 Temp 98.0 98.0 Pulse 74 70 68 Resp 20 20 20 B/P (MAP) 126/56 120/50 124/54 Pulse Ox 100 100 100 100 O2 Delivery Ventilator Ventilator Ventilator Ventilator 09/23/21 09/23/21 09/23/21 09/23/21 03:00 03:00 04:00 04:00 Pulse 80 74 Resp 20 B/P (MAP) 114/48 126/56 (79) Pulse Ox 100 100 O2 Delivery Ventilator Ventilator Mechanical Ventilator 09/23/21 09/23/21 09/23/21 09/23/21 04:00 05:00 05:25 06:00 Temp 98.1 98.1 Pulse 72 64 80 Resp 20 20 20 B/P (MAP) 128/58 114/52 132/62 Pulse Ox 100 100 100 100 O2 Delivery Ventilator Ventilator Ventilator Ventilator 09/23/21 09/23/21 09/23/21 09/23/21 07:00 07:25 08:00 08:00 Pulse 60 Resp 20 B/P (MAP) 120/48 Pulse Ox 100 100 O2 Delivery Ventilator Ventilator Mechanical Ventilator 09/23/21 09/23/21 09/23/21 09/23/21 08:00 08:54 09:00 10:00 Temp 98.5 98.5 Pulse 88 88 76 Resp 20 20 20 B/P (MAP) 132/52 132/56 134/62 Pulse Ox 100 100 100 100 O2 Delivery Ventilator Ventilator Ventilator Ventilator 09/23/21 09/23/21 09/23/21 09/23/21 11:00 11:22 11:52 12:00 Pulse 72 Resp 20 20 20 B/P (MAP) 132/64 Pulse Ox 100 100 100 O2 Delivery Ventilator Ventilator Ventilator 09/23/21 09/23/21 09/23/21 09/23/21 12:00 12:00 12:21 13:00 Temp 98.8 98.8 Pulse 98 72 Resp 20 20 B/P (MAP) 138/80 112/68 Pulse Ox 100 100 100 O2 Delivery Ventilator Mechanical Ventilator Ventilator Ventilator 09/23/21 09/23/21 09/23/21 14:00 15:00 15:42 Pulse 88 86 Resp 20 20 B/P (MAP) 116/50 112/48 Pulse Ox 100 100 100 O2 Delivery Ventilator Ventilator Ventilator Intake and Output 09/22/21 09/22/21 09/23/21 15:00 23:00 07:00 Intake Total 0 ml 1000 ml 330.89 ml Output Total 350 ml 395 ml 193 ml Balance -350 ml 605 ml 137.89 ml Justifications for Admission Other Justification BRANDEN EDDY MD Sep 23, 2021 17:38
[2021-09-23] MEDS: PROPOFOL 100 ML IV PRN (23:42)
[2021-09-24] VITALS (20 sets, daily range): BP systolic 100–174; BP diastolic 47–86
[2021-09-24] MEDS: HEPARIN for SUB-Q USE 5,000 UNIT/ML VIAL. SQ SCH ×3 (05:40→21:34)
[2021-09-24] MEDS: PIPERACILLIN/TAZOBACTAM 3.375 GM in IV NORMAL SALINE 50ML 50 ML IV SCH (05:42)
[2021-09-24 06:06] LABS: BASO % 1 % (0-3); EOS # 0.5 x10^3/uL (0.0-0.7); EOS % 9 % (0-3); HEMATOCRIT 28.7 % (36.0-47.0); HEMOGLOBIN 9.5 g/dL (12.0-15.5); LYMPH % 39 % (24-48); MEAN CORPUSCULAR HEMOGLOBIN 27 pg (25-35); MEAN CORPUSCULAR HGB CONC 33 g/dL (31-37); MEAN CORPUSCULAR VOLUME 83 fL (79-100); MONO # 0.4 x10^3/uL (0.0-1.1); MONO % 8 % (0-9); NEUT # 2.2 x10^3/uL (1.8-7.7); NEUT % 43 % (31-73); PLATELET COUNT 207 x10^3/uL (140-400); RED BLOOD COUNT 3.47 x10^6/uL (3.50-5.40); RED CELL DISTRIBUTION WIDTH 14.1 % (11.5-14.5); WHITE BLOOD COUNT 5.2 x10^3/uL (4.0-11.0)
[2021-09-24 06:19] LABS: ALBUMIN 1.9 g/dL (3.4-5.0); ALBUMIN/GLOBULIN RATIO 0.7 (1.0-1.7); CALCIUM 8.3 mg/dL (8.5-10.1); CREATININE 0.3 mg/dL (0.6-1.0); GFR 230.1; POTASSIUM 3.6 mmol/L (3.5-5.1); TOTAL BILIRUBIN 1.4 mg/dL (0.2-1.0); TOTAL PROTEIN 4.8 g/dL (6.4-8.2)
[2021-09-24] MEDS: DEXMEDETOMIDINE 400 MCG in IV NORMAL SALINE 100ML 96 ML IV PRN ×2 (07:02→17:18)
[2021-09-24] MEDS: PANTOPRAZOLE IV PUSH 40 MG VIAL. IVP SCH (07:30)
[2021-09-24] MEDS: MULTIVITAMIN with MINERAL TABLET. PO SCH (09:00)
[2021-09-24] MEDS: SENNOSIDES/DOCUSATE 8.6/50MG TABLET. PO SCH ×2 (09:00→21:00)
[2021-09-24] MEDS: FOLIC ACID 1 MG TABLET. PO SCH (09:00)
[2021-09-24] MEDS: THIAMINE 100 MG TABLET. PO SCH (09:00)
[2021-09-24] MEDS: LACTOBACILLUS RHAMNOSUS GG 1 CAPSULE. PO SCH ×2 (09:00→21:00)
[2021-09-24 09:19] LABS: BASE EXCESS ABG -2 mmol/L (-3-3); HCO3 ABG 22 mmol/L (21-28); PCO2 ABG 35 mmHg (35-46); PO2 ABG 96 mmHg (75-108); SAT O2 ABG 97 % (92-99)
--- NOTE | 2021-09-24 09:21 | PDOC ---
PULMONARY PROGRESS NOTES DATE: 09/24/21 TIME: 09:21 Subjective Patient did well this morning on pressure support trial, extubated Cough mildly strong Patient slightly confused Vitals Vital Signs Date Time Temp Pulse Resp B/P (MAP) Pulse Ox O2 Delivery O2 Flow Rate FiO2 09/24/21 08:27 100 Ventilator 09/24/21 06:18 15.0 09/24/21 06:00 56 22 118/47 09/24/21 04:00 98.4 98.4 Comments sedated on vent ros unable to obtain HEENT: Other (nc at perrl orally intubated nose clear neck no lad no thyromegaly) Lungs: Crackles Cardiovascular: S1, S2 Abdomen: Soft, Non-tender, Other (no mass) Extremities: No Edema Skin: Warm Labs Laboratory Tests Test 09/22/21 09:40 09/22/21 11:55 09/23/21 05:55 09/23/21 07:27 Sodium Level 155 mmol/L (136-145) 150 mmol/L (136-145) Potassium Level 3.0 mmol/L (3.5-5.1) 2.5 mmol/L (3.5-5.1) Chloride Level 120 mmol/L (98-107) 117 mmol/L (98-107) Carbon Dioxide Level 22 mmol/L (21-32) 22 mmol/L (21-32) Anion Gap 13 (6-14) 11 (6-14) Blood Urea Nitrogen 13 mg/dL (7-20) 9 mg/dL (7-20) Creatinine 0.5 mg/dL (0.6-1.0) 0.3 mg/dL (0.6-1.0) Estimated GFR (Cockcroft-Gault) 127.6 230.1 BUN/Creatinine Ratio 26 (6-20) Glucose Level 92 mg/dL (70-99) 80 mg/dL (70-99) Calcium Level 8.6 mg/dL (8.5-10.1) 7.2 mg/dL (8.5-10.1) Total Bilirubin 1.8 mg/dL (0.2-1.0) Aspartate Amino Transf (AST/SGOT) 61 U/L (15-37) Alanine Aminotransferase (ALT/SGPT) 93 U/L (14-59) Alkaline Phosphatase 242 U/L (46-116) Total Protein 5.4 g/dL (6.4-8.2) Albumin 2.0 g/dL (3.4-5.0) Albumin/Globulin Ratio 0.6 (1.0-1.7) White Blood Count 6.7 x10^3/uL (4.0-11.0) 6.1 x10^3/uL (4.0-11.0) Red Blood Count 3.19 x10^6/uL (3.50-5.40) 3.47 x10^6/uL (3.50-5.40) Hemoglobin 8.8 g/dL (12.0-15.5) 9.6 g/dL (12.0-15.5) Hematocrit 26.7 % (36.0-47.0) 28.8 % (36.0-47.0) Mean Corpuscular Volume 84 fL (79-100) 83 fL (79-100) Mean Corpuscular Hemoglobin 28 pg (25-35) 28 pg (25-35) Mean Corpuscular Hemoglobin Concent 33 g/dL (31-37) 33 g/dL (31-37) Red Cell Distribution Width 14.6 % (11.5-14.5) 14.5 % (11.5-14.5) Platelet Count 235 x10^3/uL (140-400) 229 x10^3/uL (140-400) Magnesium Level 1.2 mg/dL (1.8-2.4) Test 09/23/21 07:40 09/24/21 05:50 O2 Saturation 95 % (92-99) Arterial Blood pH 7.42 (7.35-7.45) Arterial Blood pCO2 at Patient Temp 40 mmHg (35-46) Arterial Blood pO2 at Patient Temp 84 mmHg (75-108) Arterial Blood HCO3 25 mmol/L (21-28) Arterial Blood Base Excess 1 mmol/L (-3-3) FiO2 35 White Blood Count 5.2 x10^3/uL (4.0-11.0) Red Blood Count 3.47 x10^6/uL (3.50-5.40) Hemoglobin 9.5 g/dL (12.0-15.5) Hematocrit 28.7 % (36.0-47.0) Mean Corpuscular Volume 83 fL (79-100) Mean Corpuscular Hemoglobin 27 pg (25-35) Mean Corpuscular Hemoglobin Concent 33 g/dL (31-37) Red Cell Distribution Width 14.1 % (11.5-14.5) Platelet Count 207 x10^3/uL (140-400) Neutrophils (%) (Auto) 43 % (31-73) Lymphocytes (%) (Auto) 39 % (24-48) Monocytes (%) (Auto) 8 % (0-9) Eosinophils (%) (Auto) 9 % (0-3) Basophils (%) (Auto) 1 % (0-3) Neutrophils # (Auto) 2.2 x10^3/uL (1.8-7.7) Lymphocytes # (Auto) 2.0 x10^3/uL (1.0-4.8) Monocytes # (Auto) 0.4 x10^3/uL (0.0-1.1) Eosinophils # (Auto) 0.5 x10^3/uL (0.0-0.7) Basophils # (Auto) 0.0 x10^3/uL (0.0-0.2) Sodium Level 144 mmol/L (136-145) Potassium Level 3.6 mmol/L (3.5-5.1) Chloride Level 111 mmol/L (98-107) Carbon Dioxide Level 23 mmol/L (21-32) Anion Gap 10 (6-14) Blood Urea Nitrogen 7 mg/dL (7-20) Creatinine 0.3 mg/dL (0.6-1.0) Estimated GFR (Cockcroft-Gault) 230.1 BUN/Creatinine Ratio 23 (6-20) Glucose Level 83 mg/dL (70-99) Calcium Level 8.3 mg/dL (8.5-10.1) Total Bilirubin 1.4 mg/dL (0.2-1.0) Aspartate Amino Transf (AST/SGOT) 27 U/L (15-37) Alanine Aminotransferase (ALT/SGPT) 54 U/L (14-59) Alkaline Phosphatase 193 U/L (46-116) Total Protein 4.8 g/dL (6.4-8.2) Albumin 1.9 g/dL (3.4-5.0) Albumin/Globulin Ratio 0.7 (1.0-1.7) Laboratory Tests Test 09/24/21 05:50 White Blood Count 5.2 x10^3/uL (4.0-11.0) Red Blood Count 3.47 x10^6/uL (3.50-5.40) Hemoglobin 9.5 g/dL (12.0-15.5) Hematocrit 28.7 % (36.0-47.0) Mean Corpuscular Volume 83 fL (79-100) Mean Corpuscular Hemoglobin 27 pg (25-35) Mean Corpuscular Hemoglobin Concent 33 g/dL (31-37) Red Cell Distribution Width 14.1 % (11.5-14.5) Platelet Count 207 x10^3/uL (140-400) Neutrophils (%) (Auto) 43 % (31-73) Lymphocytes (%) (Auto) 39 % (24-48) Monocytes (%) (Auto) 8 % (0-9) Eosinophils (%) (Auto) 9 % (0-3) Basophils (%) (Auto) 1 % (0-3) Neutrophils # (Auto) 2.2 x10^3/uL (1.8-7.7) Lymphocytes # (Auto) 2.0 x10^3/uL (1.0-4.8) Monocytes # (Auto) 0.4 x10^3/uL (0.0-1.1) Eosinophils # (Auto) 0.5 x10^3/uL (0.0-0.7) Basophils # (Auto) 0.0 x10^3/uL (0.0-0.2) Sodium Level 144 mmol/L (136-145) Potassium Level 3.6 mmol/L (3.5-5.1) Chloride Level 111 mmol/L (98-107) Carbon Dioxide Level 23 mmol/L (21-32) Anion Gap 10 (6-14) Blood Urea Nitrogen 7 mg/dL (7-20) Creatinine 0.3 mg/dL (0.6-1.0) Estimated GFR (Cockcroft-Gault) 230.1 BUN/Creatinine Ratio 23 (6-20) Glucose Level 83 mg/dL (70-99) Calcium Level 8.3 mg/dL (8.5-10.1) Total Bilirubin 1.4 mg/dL (0.2-1.0) Aspartate Amino Transf (AST/SGOT) 27 U/L (15-37) Alanine Aminotransferase (ALT/SGPT) 54 U/L (14-59) Alkaline Phosphatase 193 U/L (46-116) Total Protein 4.8 g/dL (6.4-8.2) Albumin 1.9 g/dL (3.4-5.0) Albumin/Globulin Ratio 0.7 (1.0-1.7) Medications Active Scripts Medications Dose Route/Sig Max Daily Dose Days Date Category Ibuprofen 800 Mg Tablet 800 Mg PO PRN Q6HRS PRN 09/19/21 Reported Acetaminophen 500 Mg Tablet 1,000 Mg PO PRN Q6HRS PRN 09/19/21 Reported Omeprazole 40 Mg Capsule.dr 40 Mg PO DAILY 09/19/21 Reported Comments Chest x-ray bilateral lower lobe atelectasis, infiltrates no change Impression . IMPRESSION: 1. Acute hypercapnic respiratory failure secondary to toxic encephalopathy from the effect of Ativan and morphine resulting in acute hypercapnia and respiratory arrest. She had brief asystole 2. History of meth use and heavy alcohol use. 3. Abnormal CT abdomen and pelvis with evidence of choledocholithiasis or mass. 4. Leukocytosis. 5. Hypokalemia, 6. Hyperbilirubinemia along with abnormal transaminases. 7. Moderate protein-calorie malnutrition. 8. History of tobaccoism. 9. Shock, multifactorial 10. Hypomagnesemia Plan . Updated 09/24 Trial today, did well, extubated Speech eval Empiric antibiotics Follow electrolytes As needed Haldol PT eval and treat Updated 09/23 Remains hemodynamically stable, discussed with RN, will hold off on sedation and possible trial Broad-spectrum antibiotics Replace potassium and magnesium DVT prophylaxis No surgical plans for now as needed Haldol As needed Haldol NAWAF TANG MD Sep 24, 2021 09:21
--- NOTE | 2021-09-24 09:36 | PDOC ---
Date of Service: DATE: 09/24/21 TIME: 09:30 Subjective: Subjective: Denies pain. Objective: Objective: Nurse called earlier this morning - reports ~1500 output from OGT, wants clarification re: trying tube feeds. Vital Signs: Vital Signs Date Time Temp Pulse Resp B/P (MAP) Pulse Ox O2 Delivery O2 Flow Rate FiO2 09/24/21 08:45 100 Ventilator 09/24/21 06:18 15.0 09/24/21 06:00 56 22 118/47 09/24/21 04:00 98.4 98.4 Labs: Laboratory Tests Test 09/24/21 05:50 White Blood Count 5.2 x10^3/uL Red Blood Count 3.47 x10^6/uL Hemoglobin 9.5 g/dL Hematocrit 28.7 % Mean Corpuscular Volume 83 fL Mean Corpuscular Hemoglobin 27 pg Mean Corpuscular Hemoglobin Concent 33 g/dL Red Cell Distribution Width 14.1 % Platelet Count 207 x10^3/uL Neutrophils (%) (Auto) 43 % Lymphocytes (%) (Auto) 39 % Monocytes (%) (Auto) 8 % Eosinophils (%) (Auto) 9 % Basophils (%) (Auto) 1 % Neutrophils # (Auto) 2.2 x10^3/uL Lymphocytes # (Auto) 2.0 x10^3/uL Monocytes # (Auto) 0.4 x10^3/uL Eosinophils # (Auto) 0.5 x10^3/uL Basophils # (Auto) 0.0 x10^3/uL Sodium Level 144 mmol/L Potassium Level 3.6 mmol/L Chloride Level 111 mmol/L Carbon Dioxide Level 23 mmol/L Anion Gap 10 Blood Urea Nitrogen 7 mg/dL Creatinine 0.3 mg/dL Estimated GFR (Cockcroft-Gault) 230.1 BUN/Creatinine Ratio 23 Glucose Level 83 mg/dL Calcium Level 8.3 mg/dL Total Bilirubin 1.4 mg/dL Aspartate Amino Transf (AST/SGOT) 27 U/L Alanine Aminotransferase (ALT/SGPT) 54 U/L Alkaline Phosphatase 193 U/L Total Protein 4.8 g/dL Albumin 1.9 g/dL Albumin/Globulin Ratio 0.7 PE: GEN: intubated LUNGS: vent HEART: RRR ABD: quiet, soft, [id number] OG output (canister nearly full - much more than yesterday) NEURO/PSYCH: awake, follows commands A/P: Resp failure/code Mild anemia - on IV PPI Elevated LFTs - better Abnormal imaging: dilated CBD (2cm), dilated intrahepatic ducts, possible stone/mass in distal CBD, cholelithiasis +meth -- Significant OG output - would hold on trying tube feeds til this is decreased, consider abd imaging. Justicifation of Admission Dx: Justifications for Admission: Justification of Admission Dx: Yes Respiratory Failure: Mechanical Ventilation MILTON WEI Sep 24, 2021 09:36
--- NOTE | 2021-09-24 12:46 | PDOC ---
[employer] PROGRESS NOTE Date of Service DOS: DATE: 09/24/21 TIME: 12:44 Chief Complaint Chief Complaint Sepsis Choledocholithiasis Acute hypoxic respiratory failure Interstitial pneumonitis/aspiration pneumonia Transaminitis Hypokalemia Hypomagnesemia Methamphetamine abuse History of Present Illness History of Present Illness 09/24/2021 Patient seen and examined in the ICU Her is present He seems to be good support for The patient was just extubated within the last hour She is coughing a little but alert Chart reviewed Discussed with case management Discussed with RN 09/23/2021 Patient seen and examined in the ICU She remains on the ventilator AC/20/500/30 5% with 5 of PEEP Art line functioning well Has a banana bag pain Sedated with fentanyl and Versed Potassium replacement in progress Normal saline at TKO Discussed with case management Discussed with RN Chart reviewed She remains critically ill 09/21: Febrile, tachycardic. She remains intubated with PEEP 5, FiO2 35%. Continue Zosyn for choledocholithiasis. Plan for possible cholecystectomy if stabilizes. Critical care time 30 minutes spent reviewing charts, reviewing labs, imaging, discussion with RN. 09/22: Afebrile. FiO2 35, PEEP 5. Sodium 155, potassium 3.0, magnesium 1.6. Ordered D5 water with potassium, and 2 g MG sulfate. Nurse reports that she discussed with lab about precipitous drop in hemoglobin of 4 g. Due to no obvious signs of bleeding we will recheck, and if accurate transfuse 1 unit PRBCs and consult GI. Per general surgery, currently prohibitive surgical candidate. 30 minutes critical care time spent reviewing charts, reviewing labs, reviewing imaging, discussion with RN. Vitals/I&O Vitals/I&O: Vital Signs Date Time Temp Pulse Resp B/P (MAP) Pulse Ox O2 Delivery O2 Flow Rate FiO2 09/24/21 08:45 100 Ventilator 09/24/21 06:18 15.0 09/24/21 06:00 56 22 118/47 09/24/21 04:00 98.4 98.4 I & O 09/23/21 09/23/21 09/24/21 15:00 23:00 07:00 Intake Total 50 ml 1896 ml 357 ml Output Total 160 ml 230 ml 650 ml Balance -110 ml 1666 ml -293 ml Physical Exam General: Alert, mild distress, Other Heart: Regular rate Lungs: Crackles, Other (She has a cough) Abdomen: Normal bowel sounds Extremities: No clubbing, No cyanosis Skin: No breakdown Labs Labs: Laboratory Tests Test 09/24/21 05:00 09/24/21 05:50 09/24/21 09:00 Iron Level 21 ug/dL (50-170) Total Iron Binding Capacity 97 ug/dL (250-450) Iron Saturation 22 % (15-34) Vitamin B12 Level 766 pg/mL (247-911) White Blood Count 5.2 x10^3/uL (4.0-11.0) Red Blood Count 3.47 x10^6/uL (3.50-5.40) Hemoglobin 9.5 g/dL (12.0-15.5) Hematocrit 28.7 % (36.0-47.0) Mean Corpuscular Volume 83 fL (79-100) Mean Corpuscular Hemoglobin 27 pg (25-35) Mean Corpuscular Hemoglobin Concent 33 g/dL (31-37) Red Cell Distribution Width 14.1 % (11.5-14.5) Platelet Count 207 x10^3/uL (140-400) Neutrophils (%) (Auto) 43 % (31-73) Lymphocytes (%) (Auto) 39 % (24-48) Monocytes (%) (Auto) 8 % (0-9) Eosinophils (%) (Auto) 9 % (0-3) Basophils (%) (Auto) 1 % (0-3) Neutrophils # (Auto) 2.2 x10^3/uL (1.8-7.7) Lymphocytes # (Auto) 2.0 x10^3/uL (1.0-4.8) Monocytes # (Auto) 0.4 x10^3/uL (0.0-1.1) Eosinophils # (Auto) 0.5 x10^3/uL (0.0-0.7) Basophils # (Auto) 0.0 x10^3/uL (0.0-0.2) Sodium Level 144 mmol/L (136-145) Potassium Level 3.6 mmol/L (3.5-5.1) Chloride Level 111 mmol/L (98-107) Carbon Dioxide Level 23 mmol/L (21-32) Anion Gap 10 (6-14) Blood Urea Nitrogen 7 mg/dL (7-20) Creatinine 0.3 mg/dL (0.6-1.0) Estimated GFR (Cockcroft-Gault) 230.1 BUN/Creatinine Ratio 23 (6-20) Glucose Level 83 mg/dL (70-99) Calcium Level 8.3 mg/dL (8.5-10.1) Total Bilirubin 1.4 mg/dL (0.2-1.0) Aspartate Amino Transf (AST/SGOT) 27 U/L (15-37) Alanine Aminotransferase (ALT/SGPT) 54 U/L (14-59) Alkaline Phosphatase 193 U/L (46-116) Total Protein 4.8 g/dL (6.4-8.2) Albumin 1.9 g/dL (3.4-5.0) Albumin/Globulin Ratio 0.7 (1.0-1.7) O2 Saturation 97 % (92-99) Arterial Blood pH 7.41 (7.35-7.45) Arterial Blood pCO2 at Patient Temp 35 mmHg (35-46) Arterial Blood pO2 at Patient Temp 96 mmHg (75-108) Arterial Blood HCO3 22 mmol/L (21-28) Arterial Blood Base Excess -2 mmol/L (-3-3) FiO2 35% cpap trial Assessment and Plan Assessmemt and Plan Problems Medical Problems: (1) Cholecystitis, acute with cholelithiasis Status: Acute (2) Choledocholithiasis Status: Acute (3) Hyperbilirubinemia Status: Acute (4) Obstructive jaundice Status: Acute (5) Transaminitis Status: Acute Sepsis Choledocholithiasis Acute hypoxic respiratory failure Interstitial pneumonitis/aspiration pneumonia Transaminitis Hypokalemia Hypomagnesemia Methamphetamine abuse Plan ICU monitoring Speech therapy eval Await further GI and general surgery input IV antibiotics Hope to DC the art line soon Continue banana bag and alcohol withdrawal protocol Home meds when possible DVT prophylaxis Full code Potassium replacement Continue normal saline at TKO Trend labs Comment Review of Relevant I have reviewed the following items michael (where applicable) has been applied. Justifications for Admission Other Justification RACH DIEHL III DO Sep 24, 2021 12:46
--- NOTE | 2021-09-24 13:44 | PDOC ---
CARDIO Progress Notes Date and Time Date of Service 09/24/2021 Time of Evaluation 1330 Subjective Subjective: No Chest Pain, No shortness of breath, No Palpitations Vitals Vitals Vital Signs Date Time Temp Pulse Resp B/P (MAP) Pulse Ox O2 Delivery O2 Flow Rate FiO2 09/24/21 08:45 100 Ventilator 09/24/21 06:18 15.0 09/24/21 06:00 56 22 118/47 09/24/21 04:00 98.4 98.4 Weight Weight [ ] Input and Output Intake and Output Intake and Output 09/24/21 07:00 Intake Total 2303 ml Output Total 1040 ml Balance 1263 ml IV Total 2178 ml Other 125 ml Output Urine Total 1040 ml Laboratory Labs Laboratory Tests Test 09/24/21 05:00 09/24/21 05:50 09/24/21 09:00 Iron Level 21 ug/dL (50-170) Total Iron Binding Capacity 97 ug/dL (250-450) Iron Saturation 22 % (15-34) Vitamin B12 Level 766 pg/mL (247-911) White Blood Count 5.2 x10^3/uL (4.0-11.0) Red Blood Count 3.47 x10^6/uL (3.50-5.40) Hemoglobin 9.5 g/dL (12.0-15.5) Hematocrit 28.7 % (36.0-47.0) Mean Corpuscular Volume 83 fL (79-100) Mean Corpuscular Hemoglobin 27 pg (25-35) Mean Corpuscular Hemoglobin Concent 33 g/dL (31-37) Red Cell Distribution Width 14.1 % (11.5-14.5) Platelet Count 207 x10^3/uL (140-400) Neutrophils (%) (Auto) 43 % (31-73) Lymphocytes (%) (Auto) 39 % (24-48) Monocytes (%) (Auto) 8 % (0-9) Eosinophils (%) (Auto) 9 % (0-3) Basophils (%) (Auto) 1 % (0-3) Neutrophils # (Auto) 2.2 x10^3/uL (1.8-7.7) Lymphocytes # (Auto) 2.0 x10^3/uL (1.0-4.8) Monocytes # (Auto) 0.4 x10^3/uL (0.0-1.1) Eosinophils # (Auto) 0.5 x10^3/uL (0.0-0.7) Basophils # (Auto) 0.0 x10^3/uL (0.0-0.2) Sodium Level 144 mmol/L (136-145) Potassium Level 3.6 mmol/L (3.5-5.1) Chloride Level 111 mmol/L (98-107) Carbon Dioxide Level 23 mmol/L (21-32) Anion Gap 10 (6-14) Blood Urea Nitrogen 7 mg/dL (7-20) Creatinine 0.3 mg/dL (0.6-1.0) Estimated GFR (Cockcroft-Gault) 230.1 BUN/Creatinine Ratio 23 (6-20) Glucose Level 83 mg/dL (70-99) Calcium Level 8.3 mg/dL (8.5-10.1) Total Bilirubin 1.4 mg/dL (0.2-1.0) Aspartate Amino Transf (AST/SGOT) 27 U/L (15-37) Alanine Aminotransferase (ALT/SGPT) 54 U/L (14-59) Alkaline Phosphatase 193 U/L (46-116) Total Protein 4.8 g/dL (6.4-8.2) Albumin 1.9 g/dL (3.4-5.0) Albumin/Globulin Ratio 0.7 (1.0-1.7) O2 Saturation 97 % (92-99) Arterial Blood pH 7.41 (7.35-7.45) Arterial Blood pCO2 at Patient Temp 35 mmHg (35-46) Arterial Blood pO2 at Patient Temp 96 mmHg (75-108) Arterial Blood HCO3 22 mmol/L (21-28) Arterial Blood Base Excess -2 mmol/L (-3-3) FiO2 35% cpap trial Microbiology Micro Microbiology 09/22/21 Urine Culture - Final, Complete 09/22/21 Blood Culture - Preliminary, Resulted NO GROWTH AFTER 2 DAYS 09/22/21 Respiratory Culture Gram Stain - Final, Complete 09/22/21 Respiratory Culture - Final, Complete Enterobacter Cloacae Complex Physical Exam HEENT: Neck Supple W Full Motion Chest: Symmetric LUNGS: Other (diminished bases) Heart: RRR (SR) Abdomen: Other (gastric retention with large OG output prior to extubation) Extremities: No Edema Neurology: alert, oriented, follow commands Assessment Assessment 1. Obstructive jaundice with suspected choledocholithiasis: will need future ERCP. GS/GI following 2. Polysubstance abuse: with methamphetamines and ETOH 3. Hx of HTN 4. Encephalopathy: possible initial development of DT 5. S/P Cardiopulmonary arrest: noted asystole, unclear details and duration but suspected due to respiratory failure.S/P extubation. EF and LV WM nml per TTE 6. Hypokalemia/hypomagnesemia 7. Dehydration 8. Arrhythmia: Brief period x1 with what appears to be brief AFIB RVR with abberant conduction that spontaneously converted to SR. multiple culprits as no kasi above. None further 9. Fever/leukocytosis: improving 10. Shock: multifactorial, resolved Recommendations 1. Replace K and Mg as warranted 3. Pressor support with levophed. Presently on versed and precedex and banana bag 4. Monitor rhythm, Utilize lopressor for any sustained RVR.if BP would support otherwise digoxin IV PRN. 5. Supportive care Justicifation of Admission Dx: Justifications for Admission: Justification of Admission Dx: Yes Respiratory Failure: Mechanical Ventilation CHERELLE HUTCHINSON GRAPHIC DESIGN INTERN Sep 24, 2021 13:44
[2021-09-24] MEDS ORDERED: METOPROLOL IV PUSH 5 MG/5 ML VIAL. IVP PRN (14:15)
[2021-09-24] MEDS ORDERED: MAGNESIUM SULFATE 2GM 50 ML IV ONE (15:30)
--- NOTE | 2021-09-24 15:49 | RAD ---
XR ABDOMEN 1V History: Reason: increased OG tube output / Spl. Instructions: / History: Technique: Supine view the abdomen. Comparison: Chest x-ray September 23, 2021 Findings: Enteric tube no longer identified. Mild small bowel gas. Air stool throughout the colon. Moderate col onic stool burden. Multilevel lumbar spinal stenosis with leftward curvature. Small left pleural effu augustus with adjacent atelectasis. Impression: 1. Nonobstructed bowel gas pattern. 2. Enteric tube not identified. Recommend clinical correlation and chest x-ray if indicated. Electronically signed by: Kirby Oliva DO (09/24/2021 3:46 PM) [id number]
[2021-09-24] MEDS: PIPERACILLIN/TAZOBACTAM 4.5 GM in IV DEXTROSE 5% 100ML 100 ML IV SCH ×3 (17:18→23:36)
--- NOTE | 2021-09-24 19:19 | PDOC ---
SURGICAL PROGRESS NOTE DATE: 09/24/21 TIME: 19:17 Subjective Pt seen earlier in the day. Pt awake on vent. Denies abd pain Vital Signs Vital Signs Date Time Temp Pulse Resp B/P (MAP) Pulse Ox O2 Delivery O2 Flow Rate FiO2 09/24/21 18:00 68 30 124/68 100 Nasal Cannula 3.0 09/24/21 16:00 97.6 97.6 I&O Intake and Output 09/24/21 06:59 Intake Total 2303 ml Output Total 1040 ml Balance 1263 ml IV Total 2178 ml Other 125 ml Output Urine Total 1040 ml General: Alert, No acute distress Abdomen: Soft, No tenderness Labs Laboratory Tests Test 09/23/21 05:55 09/23/21 07:27 09/23/21 07:40 09/24/21 05:00 Sodium Level 150 mmol/L (136-145) Potassium Level 2.5 mmol/L (3.5-5.1) Chloride Level 117 mmol/L (98-107) Carbon Dioxide Level 22 mmol/L (21-32) Anion Gap 11 (6-14) Blood Urea Nitrogen 9 mg/dL (7-20) Creatinine 0.3 mg/dL (0.6-1.0) Estimated GFR (Cockcroft-Gault) 230.1 Glucose Level 80 mg/dL (70-99) Calcium Level 7.2 mg/dL (8.5-10.1) Magnesium Level 1.2 mg/dL (1.8-2.4) White Blood Count 6.1 x10^3/uL (4.0-11.0) Red Blood Count 3.47 x10^6/uL (3.50-5.40) Hemoglobin 9.6 g/dL (12.0-15.5) Hematocrit 28.8 % (36.0-47.0) Mean Corpuscular Volume 83 fL (79-100) Mean Corpuscular Hemoglobin 28 pg (25-35) Mean Corpuscular Hemoglobin Concent 33 g/dL (31-37) Red Cell Distribution Width 14.5 % (11.5-14.5) Platelet Count 229 x10^3/uL (140-400) O2 Saturation 95 % (92-99) Arterial Blood pH 7.42 (7.35-7.45) Arterial Blood pCO2 at Patient Temp 40 mmHg (35-46) Arterial Blood pO2 at Patient Temp 84 mmHg (75-108) Arterial Blood HCO3 25 mmol/L (21-28) Arterial Blood Base Excess 1 mmol/L (-3-3) FiO2 35 Iron Level 21 ug/dL (50-170) Total Iron Binding Capacity 97 ug/dL (250-450) Iron Saturation 22 % (15-34) Vitamin B12 Level 766 pg/mL (247-911) Test 09/24/21 05:50 09/24/21 09:00 White Blood Count 5.2 x10^3/uL (4.0-11.0) Red Blood Count 3.47 x10^6/uL (3.50-5.40) Hemoglobin 9.5 g/dL (12.0-15.5) Hematocrit 28.7 % (36.0-47.0) Mean Corpuscular Volume 83 fL (79-100) Mean Corpuscular Hemoglobin 27 pg (25-35) Mean Corpuscular Hemoglobin Concent 33 g/dL (31-37) Red Cell Distribution Width 14.1 % (11.5-14.5) Platelet Count 207 x10^3/uL (140-400) Neutrophils (%) (Auto) 43 % (31-73) Lymphocytes (%) (Auto) 39 % (24-48) Monocytes (%) (Auto) 8 % (0-9) Eosinophils (%) (Auto) 9 % (0-3) Basophils (%) (Auto) 1 % (0-3) Neutrophils # (Auto) 2.2 x10^3/uL (1.8-7.7) Lymphocytes # (Auto) 2.0 x10^3/uL (1.0-4.8) Monocytes # (Auto) 0.4 x10^3/uL (0.0-1.1) Eosinophils # (Auto) 0.5 x10^3/uL (0.0-0.7) Basophils # (Auto) 0.0 x10^3/uL (0.0-0.2) Sodium Level 144 mmol/L (136-145) Potassium Level 3.6 mmol/L (3.5-5.1) Chloride Level 111 mmol/L (98-107) Carbon Dioxide Level 23 mmol/L (21-32) Anion Gap 10 (6-14) Blood Urea Nitrogen 7 mg/dL (7-20) Creatinine 0.3 mg/dL (0.6-1.0) Estimated GFR (Cockcroft-Gault) 230.1 BUN/Creatinine Ratio 23 (6-20) Glucose Level 83 mg/dL (70-99) Calcium Level 8.3 mg/dL (8.5-10.1) Total Bilirubin 1.4 mg/dL (0.2-1.0) Aspartate Amino Transf (AST/SGOT) 27 U/L (15-37) Alanine Aminotransferase (ALT/SGPT) 54 U/L (14-59) Alkaline Phosphatase 193 U/L (46-116) Total Protein 4.8 g/dL (6.4-8.2) Albumin 1.9 g/dL (3.4-5.0) Albumin/Globulin Ratio 0.7 (1.0-1.7) O2 Saturation 97 % (92-99) Arterial Blood pH 7.41 (7.35-7.45) Arterial Blood pCO2 at Patient Temp 35 mmHg (35-46) Arterial Blood pO2 at Patient Temp 96 mmHg (75-108) Arterial Blood HCO3 22 mmol/L (21-28) Arterial Blood Base Excess -2 mmol/L (-3-3) FiO2 35% cpap trial Laboratory Tests Test 09/24/21 05:00 09/24/21 05:50 09/24/21 09:00 Iron Level 21 ug/dL (50-170) Total Iron Binding Capacity 97 ug/dL (250-450) Iron Saturation 22 % (15-34) Vitamin B12 Level 766 pg/mL (247-911) White Blood Count 5.2 x10^3/uL (4.0-11.0) Red Blood Count 3.47 x10^6/uL (3.50-5.40) Hemoglobin 9.5 g/dL (12.0-15.5) Hematocrit 28.7 % (36.0-47.0) Mean Corpuscular Volume 83 fL (79-100) Mean Corpuscular Hemoglobin 27 pg (25-35) Mean Corpuscular Hemoglobin Concent 33 g/dL (31-37) Red Cell Distribution Width 14.1 % (11.5-14.5) Platelet Count 207 x10^3/uL (140-400) Neutrophils (%) (Auto) 43 % (31-73) Lymphocytes (%) (Auto) 39 % (24-48) Monocytes (%) (Auto) 8 % (0-9) Eosinophils (%) (Auto) 9 % (0-3) Basophils (%) (Auto) 1 % (0-3) Neutrophils # (Auto) 2.2 x10^3/uL (1.8-7.7) Lymphocytes # (Auto) 2.0 x10^3/uL (1.0-4.8) Monocytes # (Auto) 0.4 x10^3/uL (0.0-1.1) Eosinophils # (Auto) 0.5 x10^3/uL (0.0-0.7) Basophils # (Auto) 0.0 x10^3/uL (0.0-0.2) Sodium Level 144 mmol/L (136-145) Potassium Level 3.6 mmol/L (3.5-5.1) Chloride Level 111 mmol/L (98-107) Carbon Dioxide Level 23 mmol/L (21-32) Anion Gap 10 (6-14) Blood Urea Nitrogen 7 mg/dL (7-20) Creatinine 0.3 mg/dL (0.6-1.0) Estimated GFR (Cockcroft-Gault) 230.1 BUN/Creatinine Ratio 23 (6-20) Glucose Level 83 mg/dL (70-99) Calcium Level 8.3 mg/dL (8.5-10.1) Total Bilirubin 1.4 mg/dL (0.2-1.0) Aspartate Amino Transf (AST/SGOT) 27 U/L (15-37) Alanine Aminotransferase (ALT/SGPT) 54 U/L (14-59) Alkaline Phosphatase 193 U/L (46-116) Total Protein 4.8 g/dL (6.4-8.2) Albumin 1.9 g/dL (3.4-5.0) Albumin/Globulin Ratio 0.7 (1.0-1.7) O2 Saturation 97 % (92-99) Arterial Blood pH 7.41 (7.35-7.45) Arterial Blood pCO2 at Patient Temp 35 mmHg (35-46) Arterial Blood pO2 at Patient Temp 96 mmHg (75-108) Arterial Blood HCO3 22 mmol/L (21-28) Arterial Blood Base Excess -2 mmol/L (-3-3) FiO2 35% cpap trial Problem List Problems Medical Problems: (1) Cholecystitis, acute with cholelithiasis Status: Acute (2) Choledocholithiasis Status: Acute (3) Hyperbilirubinemia Status: Acute (4) Obstructive jaundice Status: Acute (5) Transaminitis Status: Acute Assessment/Plan obstructive jaundice cont supportive care no surgical plans currently Justicifation of Admission Dx: Justifications for Admission: Justification of Admission Dx: Yes Respiratory Failure: Mechanical Ventilation ISAEL JOHNSON MD Sep 24, 2021 19:19
--- NOTE | 2021-09-24 20:17 | NUR ---
Sedation decreased and stopped w exception low dose Precedex. PT w periods anxiety/fear. Able to talk down so she was able to be extubated. Trial successful w TV 450-575, RR 16-20 w/o overt distress,HR tachy slowing to upper 90s with adjustment to vent. ABG reported /extubated 0945. NPO x 4 post extubation. Bryan swallow complete,ice chips sparingly then 5-10 ml water tolerated. Communication w GI. PROCESS ASSISTANT informed of OG output past 48 H. Ordered KUB completed. Plan to reassess eating status in am. PT denies abd pain past 10 H. Axel ice chips and water sparingly. O2 started at 3 then decreased 2LNC with sats staying> 92. Voice and cough stronger as hours advanced.
[2021-09-25] VITALS (14 sets, daily range): BP systolic 75–174; BP diastolic 62–89
[2021-09-25] MEDS: PIPERACILLIN/TAZOBACTAM 4.5 GM in IV DEXTROSE 5% 100ML 100 ML IV SCH ×3 (05:30→18:12)
[2021-09-25 05:31] LABS: DIRECT BILIRUBIN 1.3 mg/dL (0.0-0.2); TOTAL BILIRUBIN 1.9 mg/dL (0.2-1.0); TOTAL PROTEIN 5.6 g/dL (6.4-8.2)
[2021-09-25] MEDS: HEPARIN for SUB-Q USE 5,000 UNIT/ML VIAL. SQ SCH ×3 (05:31→21:48)
--- NOTE | 2021-09-25 08:10 | PDOC ---
PULMONARY PROGRESS NOTES DATE: 09/25/21 TIME: 08:10 Subjective Patient awake alert following commands, not more short of breath, wants to eat Vitals Vital Signs Date Time Temp Pulse Resp B/P (MAP) Pulse Ox O2 Delivery O2 Flow Rate FiO2 09/25/21 08:00 84 20 149/76 Room Air 09/25/21 07:00 100 3.0 09/25/21 04:00 98.1 98.1 ROS: No Nausea, No Chest Pain, No Abdominal Pain, No Increase Cough General: Alert Lungs: Clear Cardiovascular: S1, S2 Abdomen: Soft, Non-tender Extremities: No Edema Skin: Warm Labs Laboratory Tests Test 09/24/21 05:00 09/24/21 05:50 09/24/21 09:00 09/25/21 04:20 Iron Level 21 ug/dL (50-170) Total Iron Binding Capacity 97 ug/dL (250-450) Iron Saturation 22 % (15-34) Vitamin B12 Level 766 pg/mL (247-911) White Blood Count 5.2 x10^3/uL (4.0-11.0) Red Blood Count 3.47 x10^6/uL (3.50-5.40) Hemoglobin 9.5 g/dL (12.0-15.5) Hematocrit 28.7 % (36.0-47.0) Mean Corpuscular Volume 83 fL (79-100) Mean Corpuscular Hemoglobin 27 pg (25-35) Mean Corpuscular Hemoglobin Concent 33 g/dL (31-37) Red Cell Distribution Width 14.1 % (11.5-14.5) Platelet Count 207 x10^3/uL (140-400) Neutrophils (%) (Auto) 43 % (31-73) Lymphocytes (%) (Auto) 39 % (24-48) Monocytes (%) (Auto) 8 % (0-9) Eosinophils (%) (Auto) 9 % (0-3) Basophils (%) (Auto) 1 % (0-3) Neutrophils # (Auto) 2.2 x10^3/uL (1.8-7.7) Lymphocytes # (Auto) 2.0 x10^3/uL (1.0-4.8) Monocytes # (Auto) 0.4 x10^3/uL (0.0-1.1) Eosinophils # (Auto) 0.5 x10^3/uL (0.0-0.7) Basophils # (Auto) 0.0 x10^3/uL (0.0-0.2) Sodium Level 144 mmol/L (136-145) Potassium Level 3.6 mmol/L (3.5-5.1) Chloride Level 111 mmol/L (98-107) Carbon Dioxide Level 23 mmol/L (21-32) Anion Gap 10 (6-14) Blood Urea Nitrogen 7 mg/dL (7-20) Creatinine 0.3 mg/dL (0.6-1.0) Estimated GFR (Cockcroft-Gault) 230.1 BUN/Creatinine Ratio 23 (6-20) Glucose Level 83 mg/dL (70-99) Calcium Level 8.3 mg/dL (8.5-10.1) Magnesium Level 1.2 mg/dL (1.8-2.4) Total Bilirubin 1.4 mg/dL (0.2-1.0) 1.9 mg/dL (0.2-1.0) Aspartate Amino Transf (AST/SGOT) 27 U/L (15-37) 32 U/L (15-37) Alanine Aminotransferase (ALT/SGPT) 54 U/L (14-59) 51 U/L (14-59) Alkaline Phosphatase 193 U/L (46-116) 206 U/L (46-116) Total Protein 4.8 g/dL (6.4-8.2) 5.6 g/dL (6.4-8.2) Albumin 1.9 g/dL (3.4-5.0) 2.0 g/dL (3.4-5.0) Albumin/Globulin Ratio 0.7 (1.0-1.7) O2 Saturation 97 % (92-99) Arterial Blood pH 7.41 (7.35-7.45) Arterial Blood pCO2 at Patient Temp 35 mmHg (35-46) Arterial Blood pO2 at Patient Temp 96 mmHg (75-108) Arterial Blood HCO3 22 mmol/L (21-28) Arterial Blood Base Excess -2 mmol/L (-3-3) FiO2 35% cpap trial Direct Bilirubin 1.3 mg/dL (0.0-0.2) Laboratory Tests Test 09/24/21 09:00 09/25/21 04:20 O2 Saturation 97 % (92-99) Arterial Blood pH 7.41 (7.35-7.45) Arterial Blood pCO2 at Patient Temp 35 mmHg (35-46) Arterial Blood pO2 at Patient Temp 96 mmHg (75-108) Arterial Blood HCO3 22 mmol/L (21-28) Arterial Blood Base Excess -2 mmol/L (-3-3) FiO2 35% cpap trial Total Bilirubin 1.9 mg/dL (0.2-1.0) Direct Bilirubin 1.3 mg/dL (0.0-0.2) Aspartate Amino Transf (AST/SGOT) 32 U/L (15-37) Alanine Aminotransferase (ALT/SGPT) 51 U/L (14-59) Alkaline Phosphatase 206 U/L (46-116) Total Protein 5.6 g/dL (6.4-8.2) Albumin 2.0 g/dL (3.4-5.0) Medications Active Scripts Medications Dose Route/Sig Max Daily Dose Days Date Category Ibuprofen 800 Mg Tablet 800 Mg PO PRN Q6HRS PRN 09/19/21 Reported Acetaminophen 500 Mg Tablet 1,000 Mg PO PRN Q6HRS PRN 09/19/21 Reported Omeprazole 40 Mg Capsule.dr 40 Mg PO DAILY 09/19/21 Reported Comments Chest x-ray bilateral lower lobe atelectasis, infiltrates no change Impression . IMPRESSION: 1. Acute hypercapnic respiratory failure secondary to toxic encephalopathy from the effect of Ativan and morphine resulting in acute hypercapnia and respiratory arrest. She had brief asystole 2. History of meth use and heavy alcohol use. 3. Abnormal CT abdomen and pelvis with evidence of choledocholithiasis or mass. 4. Leukocytosis. 5. Hypokalemia, 6. Hyperbilirubinemia along with abnormal transaminases. 7. Moderate protein-calorie malnutrition. 8. History of tobaccoism. 9. Shock, multifactorial 10. Hypomagnesemia 11. Dysphagia Plan . Updated 09/24 Patient respiratory status slowly improving Discussed with speech Continue empiric antibiotics Labs reviewed Updated 09/24 Trial today, did well, extubated Speech eval Empiric antibiotics Follow electrolytes As needed Haldol PT eval and treat Updated 09/23 Remains hemodynamically stable, discussed with RN, will hold off on sedation and possible trial Broad-spectrum antibiotics Replace potassium and magnesium DVT prophylaxis No surgical plans for now as needed Haldol As needed Melil NAWAF TANG MD Sep 25, 2021 08:10
[2021-09-25] MEDS: PANTOPRAZOLE IV PUSH 40 MG VIAL. IVP SCH (08:22)
[2021-09-25] MEDS: SENNOSIDES/DOCUSATE 8.6/50MG TABLET. PO SCH ×2 (09:00→21:00)
--- NOTE | 2021-09-25 09:04 | PDOC ---
Date of Service: DATE: 09/25/21 TIME: 09:01 Subjective: Subjective: Denies abd pain but it feels tight. Objective: Vital Signs: Vital Signs Date Time Temp Pulse Resp B/P (MAP) Pulse Ox O2 Delivery O2 Flow Rate FiO2 09/25/21 08:00 84 20 149/76 Room Air 09/25/21 07:00 100 3.0 09/25/21 04:00 98.1 98.1 Labs: Laboratory Tests Test 09/25/21 04:20 Total Bilirubin 1.9 mg/dL Direct Bilirubin 1.3 mg/dL Aspartate Amino Transf (AST/SGOT) 32 U/L Alanine Aminotransferase (ALT/SGPT) 51 U/L Alkaline Phosphatase 206 U/L Total Protein 5.6 g/dL Albumin 2.0 g/dL BLOOD CULTURE Preliminary NO GROWTH AFTER 4 DAYS Imaging: KUB Impression: 1. Nonobstructed bowel gas pattern. 2. Enteric tube not identified. Recommend clinical correlation and chest x-ray if indicated. PE: GEN: NAD LUNGS: CTAB HEART: RRR ABD: NABS, S/ND/NT NEURO/PSYCH: A & O 3 A/P: Resp failure - extubated Mild anemia - on IV PPI Elevated LFTs - fluctuating Abnormal imaging: dilated CBD (2cm), dilated intrahepatic ducts, possible stone/mass in distal CBD, cholelithiasis -- Okay for PROVER eval per GI. Justicifation of Admission Dx: Justifications for Admission: Justification of Admission Dx: Yes Respiratory Failure: Mechanical Ventilation MILTON WEI Sep 25, 2021 09:04
--- NOTE | 2021-09-25 10:47 | PDOC ---
CARDIO Progress Notes Date and Time Date of Service 09/25/2021 Time of Evaluation 0940 Subjective Subjective: No Chest Pain, No shortness of breath, No Palpitations Vitals Vitals Vital Signs Date Time Temp Pulse Resp B/P (MAP) Pulse Ox O2 Delivery O2 Flow Rate FiO2 09/25/21 09:00 86 20 156/77 Room Air 09/25/21 07:00 100 3.0 09/25/21 04:00 98.1 98.1 Weight Weight [ ] Input and Output Intake and Output Intake and Output 09/25/21 07:00 Intake Total 630 ml Output Total 4615 ml Balance -3985 ml Intake Oral 125 ml IV Total 505 ml Output Urine Total 2240 ml Gastric Drainage Total 2375 ml # Bowel Movements 1 Laboratory Labs Laboratory Tests Test 09/25/21 04:20 Total Bilirubin 1.9 mg/dL (0.2-1.0) Direct Bilirubin 1.3 mg/dL (0.0-0.2) Aspartate Amino Transf (AST/SGOT) 32 U/L (15-37) Alanine Aminotransferase (ALT/SGPT) 51 U/L (14-59) Alkaline Phosphatase 206 U/L (46-116) Total Protein 5.6 g/dL (6.4-8.2) Albumin 2.0 g/dL (3.4-5.0) Microbiology Micro Microbiology 09/22/21 Urine Culture - Final, Complete 09/22/21 Blood Culture - Preliminary, Resulted NO GROWTH AFTER 2 DAYS 09/22/21 Respiratory Culture Gram Stain - Final, Complete 09/22/21 Respiratory Culture - Final, Complete Enterobacter Cloacae Complex Physical Exam HEENT: Neck Supple W Full Motion Chest: Symmetric LUNGS: Other (diminished bases) Heart: RRR (SR) Abdomen: Other (gastric retention with large OG output prior to extubation) Extremities: No Edema Neurology: alert, oriented, follow commands Assessment Assessment 1. Obstructive jaundice with suspected choledocholithiasis: will need future ERCP. GS/GI following 2. Polysubstance abuse: with methamphetamines and ETOH 3. Hx of HTN 4. Encephalopathy: possible initial development of DT 5. S/P Cardiopulmonary arrest: noted asystole, unclear details and duration but suspected due to respiratory failure.S/P extubation. EF and LV WM nml per TTE 6. Hypokalemia/hypomagnesemia 7. Dehydration 8. Arrhythmia: Brief period x1 with what appears to be brief AFIB RVR with abberant conduction that spontaneously converted to SR. multiple culprits as noted above. None further 9. Fever/leukocytosis: improving 10. Shock: multifactorial, resolved Recommendations 1. Replace K and Mg as warranted 2. Monitor rhythm, Utilize lopressor for any sustained RVR.if BP would support otherwise digoxin IV PRN. Remains NPO start PO lopressor when able to take PO and low dose ASA 3. Supportive care Justicifation of Admission Dx: Justifications for Admission: Justification of Admission Dx: Yes Respiratory Failure: Mechanical Ventilation CHERELLE HUTCHINSON SHIRT TRIMMER Sep 25, 2021 10:47
[2021-09-25 11:07] LABS: CALCIUM 8.5 mg/dL (8.5-10.1); CREATININE 0.4 mg/dL (0.6-1.0); GFR 165.1; MAGNESIUM 1.4 mg/dL (1.8-2.4); POTASSIUM 3.4 mmol/L (3.5-5.1)
[2021-09-25] MEDS ORDERED: MAGNESIUM SULFATE 4GM 100 ML IV ONE (12:00)
[2021-09-25] MEDS: POTASSIUM CHLORIDE 10MEQ 100 ML IV SCH ×2 (12:03→13:09)
[2021-09-25] MEDS: LACTOBACILLUS RHAMNOSUS GG 1 CAPSULE. PO SCH ×2 (12:59→21:00)
[2021-09-25] MEDS: MULTIVITAMIN with MINERAL TABLET. PO SCH (12:59)
[2021-09-25] MEDS: FOLIC ACID 1 MG TABLET. PO SCH (12:59)
[2021-09-25] MEDS: THIAMINE 100 MG TABLET. PO SCH (13:06)
[2021-09-25] MEDS: METOPROLOL IV PUSH 5 MG/5 ML VIAL. IVP SCH ×2 (13:08→18:12)
--- NOTE | 2021-09-25 15:18 | PDOC ---
SURGICAL PROGRESS NOTE DATE: 09/25/21 TIME: 15:17 Subjective Pt extubated, denies abd pain Vital Signs Vital Signs Date Time Temp Pulse Resp B/P (MAP) Pulse Ox O2 Delivery O2 Flow Rate FiO2 09/25/21 13:08 98 168/84 09/25/21 09:00 20 Room Air 09/25/21 07:00 100 3.0 09/25/21 04:00 98.1 98.1 I&O Intake and Output 09/25/21 07:00 Intake Total 630 ml Output Total 4615 ml Balance -3985 ml Intake Oral 125 ml IV Total 505 ml Output Urine Total 2240 ml Gastric Drainage Total 2375 ml # Bowel Movements 1 General: Alert, Cooperative, No acute distress Abdomen: Soft, No tenderness Labs Laboratory Tests Test 09/24/21 05:00 09/24/21 05:50 09/24/21 09:00 09/25/21 04:20 Iron Level 21 ug/dL (50-170) Total Iron Binding Capacity 97 ug/dL (250-450) Iron Saturation 22 % (15-34) Vitamin B12 Level 766 pg/mL (247-911) White Blood Count 5.2 x10^3/uL (4.0-11.0) Red Blood Count 3.47 x10^6/uL (3.50-5.40) Hemoglobin 9.5 g/dL (12.0-15.5) Hematocrit 28.7 % (36.0-47.0) Mean Corpuscular Volume 83 fL (79-100) Mean Corpuscular Hemoglobin 27 pg (25-35) Mean Corpuscular Hemoglobin Concent 33 g/dL (31-37) Red Cell Distribution Width 14.1 % (11.5-14.5) Platelet Count 207 x10^3/uL (140-400) Neutrophils (%) (Auto) 43 % (31-73) Lymphocytes (%) (Auto) 39 % (24-48) Monocytes (%) (Auto) 8 % (0-9) Eosinophils (%) (Auto) 9 % (0-3) Basophils (%) (Auto) 1 % (0-3) Neutrophils # (Auto) 2.2 x10^3/uL (1.8-7.7) Lymphocytes # (Auto) 2.0 x10^3/uL (1.0-4.8) Monocytes # (Auto) 0.4 x10^3/uL (0.0-1.1) Eosinophils # (Auto) 0.5 x10^3/uL (0.0-0.7) Basophils # (Auto) 0.0 x10^3/uL (0.0-0.2) Sodium Level 144 mmol/L (136-145) 146 mmol/L (136-145) Potassium Level 3.6 mmol/L (3.5-5.1) 3.4 mmol/L (3.5-5.1) Chloride Level 111 mmol/L (98-107) 109 mmol/L (98-107) Carbon Dioxide Level 23 mmol/L (21-32) 21 mmol/L (21-32) Anion Gap 10 (6-14) 16 (6-14) Blood Urea Nitrogen 7 mg/dL (7-20) 8 mg/dL (7-20) Creatinine 0.3 mg/dL (0.6-1.0) 0.4 mg/dL (0.6-1.0) Estimated GFR (Cockcroft-Gault) 230.1 165.1 BUN/Creatinine Ratio 23 (6-20) Glucose Level 83 mg/dL (70-99) 60 mg/dL (70-99) Calcium Level 8.3 mg/dL (8.5-10.1) 8.5 mg/dL (8.5-10.1) Magnesium Level 1.2 mg/dL (1.8-2.4) 1.4 mg/dL (1.8-2.4) Total Bilirubin 1.4 mg/dL (0.2-1.0) 1.9 mg/dL (0.2-1.0) Aspartate Amino Transf (AST/SGOT) 27 U/L (15-37) 32 U/L (15-37) Alanine Aminotransferase (ALT/SGPT) 54 U/L (14-59) 51 U/L (14-59) Alkaline Phosphatase 193 U/L (46-116) 206 U/L (46-116) Total Protein 4.8 g/dL (6.4-8.2) 5.6 g/dL (6.4-8.2) Albumin 1.9 g/dL (3.4-5.0) 2.0 g/dL (3.4-5.0) Albumin/Globulin Ratio 0.7 (1.0-1.7) O2 Saturation 97 % (92-99) Arterial Blood pH 7.41 (7.35-7.45) Arterial Blood pCO2 at Patient Temp 35 mmHg (35-46) Arterial Blood pO2 at Patient Temp 96 mmHg (75-108) Arterial Blood HCO3 22 mmol/L (21-28) Arterial Blood Base Excess -2 mmol/L (-3-3) FiO2 35% cpap trial Direct Bilirubin 1.3 mg/dL (0.0-0.2) Laboratory Tests Test 09/25/21 04:20 Sodium Level 146 mmol/L (136-145) Potassium Level 3.4 mmol/L (3.5-5.1) Chloride Level 109 mmol/L (98-107) Carbon Dioxide Level 21 mmol/L (21-32) Anion Gap 16 (6-14) Blood Urea Nitrogen 8 mg/dL (7-20) Creatinine 0.4 mg/dL (0.6-1.0) Estimated GFR (Cockcroft-Gault) 165.1 Glucose Level 60 mg/dL (70-99) Calcium Level 8.5 mg/dL (8.5-10.1) Magnesium Level 1.4 mg/dL (1.8-2.4) Total Bilirubin 1.9 mg/dL (0.2-1.0) Direct Bilirubin 1.3 mg/dL (0.0-0.2) Aspartate Amino Transf (AST/SGOT) 32 U/L (15-37) Alanine Aminotransferase (ALT/SGPT) 51 U/L (14-59) Alkaline Phosphatase 206 U/L (46-116) Total Protein 5.6 g/dL (6.4-8.2) Albumin 2.0 g/dL (3.4-5.0) Problem List Problems Medical Problems: (1) Cholecystitis, acute with cholelithiasis Status: Acute (2) Choledocholithiasis Status: Acute (3) Hyperbilirubinemia Status: Acute (4) Obstructive jaundice Status: Acute (5) Transaminitis Status: Acute Assessment/Plan appears improving no surgical plans currently. Poor surgical candidate currently. Justicifation of Admission Dx: Justifications for Admission: Justification of Admission Dx: Yes Respiratory Failure: Mechanical Ventilation ISAEL JOHNSON MD Sep 25, 2021 15:18
[2021-09-25] MEDS ORDERED: KCL PER PROTOCOL MC PRN (17:45)
[2021-09-26] VITALS (8 sets, daily range): BP systolic 117–169; BP diastolic 59–86
[2021-09-26] MEDS: PIPERACILLIN/TAZOBACTAM 4.5 GM in IV DEXTROSE 5% 100ML 100 ML IV SCH ×3 (00:21→11:54)
[2021-09-26] MEDS: ACETAMINOPHEN 650 MG/20.3 ML SOLUTION. PEG PRN (00:21)
[2021-09-26] MEDS: METOPROLOL IV PUSH 5 MG/5 ML VIAL. IVP SCH ×2 (00:34→05:45)
[2021-09-26] MEDS: HEPARIN for SUB-Q USE 5,000 UNIT/ML VIAL. SQ SCH ×3 (05:44→21:43)
[2021-09-26] MEDS: MULTIVITAMIN with MINERAL TABLET. PO SCH (08:32)
[2021-09-26] MEDS: PANTOPRAZOLE IV PUSH 40 MG VIAL. IVP SCH (08:32)
[2021-09-26] MEDS: FOLIC ACID 1 MG TABLET. PO SCH (08:32)
[2021-09-26] MEDS: THIAMINE 100 MG TABLET. PO SCH (08:32)
[2021-09-26] MEDS: SENNOSIDES/DOCUSATE 8.6/50MG TABLET. PO SCH ×2 (08:32→21:42)
[2021-09-26] MEDS: LACTOBACILLUS RHAMNOSUS GG 1 CAPSULE. PO SCH ×2 (08:32→21:42)
--- NOTE | 2021-09-26 08:47 | PDOC ---
SURGICAL PROGRESS NOTE DATE: 09/26/21 TIME: 08:45 Subjective had some pain, improved after BM did eat some last night, had some pain-resolved with medication no n/v Vital Signs Vital Signs Date Time Temp Pulse Resp B/P (MAP) Pulse Ox O2 Delivery O2 Flow Rate FiO2 09/26/21 07:00 98.5 86 25 161/82 (108) 100 Room Air 98.5 09/25/21 07:00 2.0 I&O Intake and Output 09/26/21 07:00 Intake Total 450 ml Output Total 3200 ml Balance -2750 ml Intake Oral 450 ml Output Urine Total 3200 ml # Bowel Movements 2 General: Alert, Oriented X3, Cooperative Abdomen: Soft, No tenderness Extremities: No clubbing, No cyanosis Labs Laboratory Tests Test 09/24/21 09:00 09/25/21 04:20 O2 Saturation 97 % (92-99) Arterial Blood pH 7.41 (7.35-7.45) Arterial Blood pCO2 at Patient Temp 35 mmHg (35-46) Arterial Blood pO2 at Patient Temp 96 mmHg (75-108) Arterial Blood HCO3 22 mmol/L (21-28) Arterial Blood Base Excess -2 mmol/L (-3-3) FiO2 35% cpap trial Sodium Level 146 mmol/L (136-145) Potassium Level 3.4 mmol/L (3.5-5.1) Chloride Level 109 mmol/L (98-107) Carbon Dioxide Level 21 mmol/L (21-32) Anion Gap 16 (6-14) Blood Urea Nitrogen 8 mg/dL (7-20) Creatinine 0.4 mg/dL (0.6-1.0) Estimated GFR (Cockcroft-Gault) 165.1 Glucose Level 60 mg/dL (70-99) Calcium Level 8.5 mg/dL (8.5-10.1) Magnesium Level 1.4 mg/dL (1.8-2.4) Total Bilirubin 1.9 mg/dL (0.2-1.0) Direct Bilirubin 1.3 mg/dL (0.0-0.2) Aspartate Amino Transf (AST/SGOT) 32 U/L (15-37) Alanine Aminotransferase (ALT/SGPT) 51 U/L (14-59) Alkaline Phosphatase 206 U/L (46-116) Total Protein 5.6 g/dL (6.4-8.2) Albumin 2.0 g/dL (3.4-5.0) Problem List Problems Medical Problems: (1) Cholecystitis, acute with cholelithiasis Status: Acute (2) Choledocholithiasis Status: Acute (3) Hyperbilirubinemia Status: Acute (4) Obstructive jaundice Status: Acute (5) Transaminitis Status: Acute Assessment/Plan trial diet trend lfts poor surgical candidate currently Justicifation of Admission Dx: Justifications for Admission: Justification of Admission Dx: Yes Respiratory Failure: Mechanical Ventilation CHANDNI HINOJOSA AIRLINE RESERVATION AGENT Sep 26, 2021 08:47
--- NOTE | 2021-09-26 09:39 | PDOC ---
PULMONARY PROGRESS NOTES DATE: 09/26/21 TIME: 09:39 Subjective Patient off of oxygen, room air sats above 92% Not more short of breath On a dysphagia diet Vitals Vital Signs Date Time Temp Pulse Resp B/P (MAP) Pulse Ox O2 Delivery O2 Flow Rate FiO2 09/26/21 08:00 Room Air 09/26/21 07:00 98.5 86 25 161/82 (108) 100 98.5 09/25/21 07:00 2.0 ROS: No Nausea, No Chest Pain, No Abdominal Pain, No Increase Cough General: Alert Lungs: Clear Cardiovascular: S1, S2 Abdomen: Soft, Non-tender Extremities: No Edema Skin: Warm Labs Laboratory Tests Test 09/25/21 04:20 Sodium Level 146 mmol/L (136-145) Potassium Level 3.4 mmol/L (3.5-5.1) Chloride Level 109 mmol/L (98-107) Carbon Dioxide Level 21 mmol/L (21-32) Anion Gap 16 (6-14) Blood Urea Nitrogen 8 mg/dL (7-20) Creatinine 0.4 mg/dL (0.6-1.0) Estimated GFR (Cockcroft-Gault) 165.1 Glucose Level 60 mg/dL (70-99) Calcium Level 8.5 mg/dL (8.5-10.1) Magnesium Level 1.4 mg/dL (1.8-2.4) Total Bilirubin 1.9 mg/dL (0.2-1.0) Direct Bilirubin 1.3 mg/dL (0.0-0.2) Aspartate Amino Transf (AST/SGOT) 32 U/L (15-37) Alanine Aminotransferase (ALT/SGPT) 51 U/L (14-59) Alkaline Phosphatase 206 U/L (46-116) Total Protein 5.6 g/dL (6.4-8.2) Albumin 2.0 g/dL (3.4-5.0) Medications Active Scripts Medications Dose Route/Sig Max Daily Dose Days Date Category Ibuprofen 800 Mg Tablet 800 Mg PO PRN Q6HRS PRN 09/19/21 Reported Acetaminophen 500 Mg Tablet 1,000 Mg PO PRN Q6HRS PRN 09/19/21 Reported Omeprazole 40 Mg Capsule.dr 40 Mg PO DAILY 09/19/21 Reported Impression . IMPRESSION: 1. Acute hypercapnic respiratory failure secondary to toxic encephalopathy from the effect of Ativan and morphine resulting in acute hypercapnia and respiratory arrest. She had brief asystole 2. History of meth use and heavy alcohol use. 3. Abnormal CT abdomen and pelvis with evidence of choledocholithiasis or mass. 4. Leukocytosis. 5. Hypokalemia, 6. Hyperbilirubinemia along with abnormal transaminases. 7. Moderate protein-calorie malnutrition. 8. History of tobaccoism. 9. Shock, multifactorial 10. Hypomagnesemia 11. Dysphagia Plan . Updated 09/26 Discussed with industrial machine operator out of the intensive care unit Aggressive PT Possible discharge within the next 24 to 48 hours Follow speech eval Social service to plan discharge 6-minute walk Updated 09/25 Patient respiratory status slowly improving Discussed with speech Continue empiric antibiotics Labs reviewed Updated 09/24 Trial today, did well, extubated Speech eval Empiric antibiotics Follow electrolytes As needed Haldol PT eval and treat NAWAF TANG MD Sep 26, 2021 09:39
--- NOTE | 2021-09-26 09:48 | PDOC ---
CHERELLE HUTCHINSON HOURLY MANAGER 09/26/21 0948: CARDIO Progress Notes Date and Time Date of Service 09/26/2021 Time of Evaluation 0915 Subjective Subjective: No Chest Pain, No shortness of breath, No Palpitations Vitals Vitals Vital Signs Date Time Temp Pulse Resp B/P (MAP) Pulse Ox O2 Delivery O2 Flow Rate FiO2 09/26/21 08:00 Room Air 09/26/21 07:00 98.5 86 25 161/82 (108) 100 98.5 09/25/21 07:00 2.0 Weight Weight [ ] Input and Output Intake and Output Intake and Output 09/26/21 07:00 Intake Total 450 ml Output Total 3200 ml Balance -2750 ml Intake Oral 450 ml Output Urine Total 3200 ml # Bowel Movements 2 Microbiology Micro Microbiology 09/22/21 Urine Culture - Final, Complete 09/22/21 Blood Culture - Preliminary, Resulted NO GROWTH AFTER 3 DAYS 09/22/21 Respiratory Culture Gram Stain - Final, Complete 09/22/21 Respiratory Culture - Final, Complete Enterobacter Cloacae Complex Physical Exam HEENT: Neck Supple W Full Motion Chest: Symmetric LUNGS: Other (diminished bases) Heart: RRR (SR) Abdomen: Other (gastric retention with large OG output prior to extubation) Extremities: No Edema Neurology: alert, oriented, follow commands Assessment Assessment 1. Obstructive jaundice with suspected choledocholithiasis: will need future ERCP. GS/GI following 2. Polysubstance abuse: with methamphetamines and ETOH 3. Hx of HTN 4. Encephalopathy: possible initial development of DT 5. S/P Cardiopulmonary arrest: noted asystole, unclear details and duration but suspected due to respiratory failure.S/P extubation. EF and LV WM nml per TTE 6. Hypokalemia/hypomagnesemia 7. Dehydration 8. Arrhythmia: noted AFIB paroxyms induced by extracardiac issues including lyte abnormalities. Maintaining SR 9. Fever/leukocytosis: improving 10. Shock: multifactorial, resolved Recommendations 1. Replace K and Mg as warranted 2. Monitor rhythm, Start PO lopressor and ECASA 81 mg 3. Supportive care Justicifation of Admission Dx: Justifications for Admission: Justification of Admission Dx: Yes Respiratory Failure: Mechanical Ventilation CRYSTAL LERMA MD 09/26/21 7910: CARDIO Progress Notes Assessment Assessment Patient seen and examined. Agree with DRAPERY OPERATOR's assessment and plan Tele did not show any further arrhythmias Continue current medical regimen CHERELLE HUTCHINSON HOURLY MANAGER Sep 26, 2021 09:48 CRYSTAL LERMA MD Sep 26, 2021 21:56
--- NOTE | 2021-09-26 10:33 | PDOC ---
Date of Service: DATE: 09/26/21 TIME: 10:29 Subjective: Subjective: Had some mid-upper abd pain last night and this morning - better after stooled. Enjoying breakfast without pain. Has some questions about gallbladder. Says had a good talk with her after she "woke up and saw God," wants to move forward and quit smoking/drugs. Family history of GB disease - brother had to be life flighted in [place] for GB issue. Objective: Vital Signs: Vital Signs Date Time Temp Pulse Resp B/P (MAP) Pulse Ox O2 Delivery O2 Flow Rate FiO2 09/26/21 08:00 Room Air 09/26/21 07:00 98.5 86 25 161/82 (108) 100 98.5 09/25/21 07:00 2.0 Imaging: HOUSEHOLD APPLIANCES SERVICE TECHNICIAN Bedside Swallow Eval Bedside swallow eval completed. Pt intubated 09/20-09/24/21. Phonation remains mild to mild-moderately hoarse and not c/w baseline per pt report. Overall, swallow function appears intact. No overt s/s aspiration across multiple trials of puree, solids, honey thick or thin liquids. Pt spontaneously took small sips and small bolus solids when feeding self. Pt reported feeling "nervous" and appeared to become SOA w/anxiety at times. SOA did not appear r/t PO intake. IMPRESSIONS: Mild laryngeal dysfunction p.4d. intubation. Appears safe to initiate po diet at this time. Encouraged vocal rest. Anticipate safe intake to meet nutritional needs and take po meds. RECOMMENDATIONS: Regular diet w/thin liquids. Sit all the way up to eat and drink. No straws. Meds 1 at a time w/sips. Precautions posted. Diet orders entered. Will f/u per POC. See full rpt in interventions. PE: GEN: NAD, eating biscuits and gravy LUNGS: CTAB HEART: RRR ABD: soft, non-tender NEURO/PSYCH: A & O 3 A/P: Resp failure - better ACD Elevated LFTs - fluctuating (checked 09/25) Cholelithiasis, dilated CBD -- Tolerating diet. Had some pain that resolved after bowel movement. Monitor LFTs. Currently not ideal surgical/endoscopy candidate. Justicifation of Admission Dx: Justifications for Admission: Justification of Admission Dx: Yes Respiratory Failure: Mechanical Ventilation MILTON WEI Sep 26, 2021 10:33
[2021-09-26 11:15] LABS: CALCIUM 8.9 mg/dL (8.5-10.1); CREATININE 0.4 mg/dL (0.6-1.0); GFR 165.1; MAGNESIUM 1.4 mg/dL (1.8-2.4)
[2021-09-26 11:17] LABS: POTASSIUM 2.8 mmol/L (3.5-5.1)
[2021-09-26] MEDS ORDERED: POTASSIUM CHLORIDE 20 MEQ TABLET.ER. PO ONE ×3 (11:30→22:30)
--- NOTE | 2021-09-26 12:34 | PDOC ---
[facility] PROGRESS NOTE Date of Service DOS: DATE: 09/26/21 TIME: 12:33 Chief Complaint Chief Complaint Sepsis Choledocholithiasis Acute hypoxic respiratory failure Interstitial pneumonitis/aspiration pneumonia Transaminitis Hypokalemia Hypomagnesemia Methamphetamine abuse History of Present Illness History of Present Illness 09/26/2021 Patient seen and examined in the ICU Her is present She is up in the chair Still short of breath but looks better Chart reviewed Discussed with case management Discussed with RN We have ordered some PT OT 09/24/2021 Patient seen and examined in the ICU Her is present He seems to be good support for The patient was just extubated within the last hour She is coughing a little but alert Chart reviewed Discussed with case management Discussed with RN 09/23/2021 Patient seen and examined in the ICU She remains on the ventilator AC/20/500/30 5% with 5 of PEEP Art line functioning well Has a banana bag pain Sedated with fentanyl and Versed Potassium replacement in progress Normal saline at TKO Discussed with case management Discussed with RN Chart reviewed She remains critically ill 09/21: Febrile, tachycardic. She remains intubated with PEEP 5, FiO2 35%. Continue Zosyn for choledocholithiasis. Plan for possible cholecystectomy if stabilizes. Critical care time 30 minutes spent reviewing charts, reviewing labs, imaging, discussion with RN. 09/22: Afebrile. FiO2 35, PEEP 5. Sodium 155, potassium 3.0, magnesium 1.6. Ordered D5 water with potassium, and 2 g MG sulfate. Nurse reports that she discussed with lab about precipitous drop in hemoglobin of 4 g. Due to no obvious signs of bleeding we will recheck, and if accurate transfuse 1 unit PRBCs and consult GI. Per general surgery, currently prohibitive surgical candidate. 30 minutes critical care time spent reviewing charts, reviewing labs, reviewing imaging, discussion with RN. Vitals/I&O Vitals/I&O: Vital Signs Date Time Temp Pulse Resp B/P (MAP) Pulse Ox O2 Delivery O2 Flow Rate FiO2 09/26/21 08:00 Room Air 09/26/21 07:00 98.5 86 25 161/82 (108) 100 98.5 09/25/21 07:00 2.0 I & O 09/25/21 09/25/21 09/26/21 15:00 23:00 07:00 Intake Total 350 ml 100 ml Output Total 800 ml 1450 ml 950 ml Balance -800 ml -1100 ml -850 ml Physical Exam General: Alert, Oriented X3, Cooperative Heart: Regular rate Lungs: Clear Abdomen: Soft, No tenderness Extremities: No clubbing, No cyanosis Skin: No breakdown Labs Labs: Laboratory Tests Test 09/26/21 10:52 Sodium Level 143 mmol/L (136-145) Potassium Level 2.8 mmol/L (3.5-5.1) Chloride Level 103 mmol/L (98-107) Carbon Dioxide Level 27 mmol/L (21-32) Anion Gap 13 (6-14) Blood Urea Nitrogen 3 mg/dL (7-20) Creatinine 0.4 mg/dL (0.6-1.0) Estimated GFR (Cockcroft-Gault) 165.1 Glucose Level 118 mg/dL (70-99) Calcium Level 8.9 mg/dL (8.5-10.1) Magnesium Level 1.4 mg/dL (1.8-2.4) Assessment and Plan Assessmemt and Plan Problems Medical Problems: (1) Cholecystitis, acute with cholelithiasis Status: Acute (2) Choledocholithiasis Status: Acute (3) Hyperbilirubinemia Status: Acute (4) Obstructive jaundice Status: Acute (5) Transaminitis Status: Acute Sepsis Choledocholithiasis Acute hypoxic respiratory failure Interstitial pneumonitis/aspiration pneumonia Transaminitis Hypokalemia Hypomagnesemia Methamphetamine abuse Plan ICU monitoring Speech therapy following Hope to advance diet soon Await further GI and general surgery input IV antibiotics PT OT As needed alcohol withdrawal protocol Home meds when possible DVT prophylaxis Full code Potassium replacement Trend labs Comment Review of Relevant I have reviewed the following items michael (where applicable) has been applied. Medications: Current Medications Medications (Trade) Dose Ordered Sig/Mitch Route PRN Reason Start Time Stop Time Status Last Admin Dose Admin Potassium Chloride (Klor-Con) 40 meq 1X ONCE PO 09/26/21 11:30 09/26/21 11:32 DC 09/26/21 11:50 Justifications for Admission Other Justification RACH DIEHL III DO Sep 26, 2021 12:34
[2021-09-26] MEDS ORDERED: MAGNESIUM SULFATE 4GM 100 ML IV ONE (18:00)
[2021-09-26] MEDS: METOPROLOL TART IMMED RELEASE 50 MG TABLET. PO SCH (21:42)
[2021-09-27 03:00] VITALS: BP 102/81
[2021-09-27] MEDS: HEPARIN for SUB-Q USE 5,000 UNIT/ML VIAL. SQ SCH ×2 (06:00→14:00)
[2021-09-27 07:00] VITALS: BP 136/69
[2021-09-27] MEDS ORDERED: PANTOPRAZOLE 40 MG TABLET.DR. PO SCH (07:30)
[2021-09-27] MEDS ORDERED: ASPIRIN ENTERIC COATED 81 MG TABLET.DR. PO SCH (08:00)
[2021-09-27] MEDS ORDERED: POTASSIUM CHLORIDE 20 MEQ TABLET.ER. PO ONE (08:00)
--- NOTE | 2021-09-27 08:10 | PDOC ---
PULMONARY PROGRESS NOTES DATE: 09/27/21 TIME: 08:10 Subjective Patient now more short of air, No chest pain no pressure Vitals Vital Signs Date Time Temp Pulse Resp B/P (MAP) Pulse Ox O2 Delivery O2 Flow Rate FiO2 09/27/21 03:00 97.4 76 16 102/81 (88) 97 97.4 09/26/21 20:00 Room Air ROS: No Nausea, No Chest Pain, No Abdominal Pain, No Increase Cough General: Alert Lungs: Clear Cardiovascular: S1, S2 Abdomen: Soft, Non-tender Extremities: No Edema Skin: Warm Labs Laboratory Tests Test 09/26/21 10:52 09/26/21 21:30 Sodium Level 143 mmol/L (136-145) Potassium Level 2.8 mmol/L (3.5-5.1) 2.9 mmol/L (3.5-5.1) Chloride Level 103 mmol/L (98-107) Carbon Dioxide Level 27 mmol/L (21-32) Anion Gap 13 (6-14) Blood Urea Nitrogen 3 mg/dL (7-20) Creatinine 0.4 mg/dL (0.6-1.0) Estimated GFR (Cockcroft-Gault) 165.1 Glucose Level 118 mg/dL (70-99) Calcium Level 8.9 mg/dL (8.5-10.1) Magnesium Level 1.4 mg/dL (1.8-2.4) Laboratory Tests Test 09/26/21 10:52 09/26/21 21:30 Sodium Level 143 mmol/L (136-145) Potassium Level 2.8 mmol/L (3.5-5.1) 2.9 mmol/L (3.5-5.1) Chloride Level 103 mmol/L (98-107) Carbon Dioxide Level 27 mmol/L (21-32) Anion Gap 13 (6-14) Blood Urea Nitrogen 3 mg/dL (7-20) Creatinine 0.4 mg/dL (0.6-1.0) Estimated GFR (Cockcroft-Gault) 165.1 Glucose Level 118 mg/dL (70-99) Calcium Level 8.9 mg/dL (8.5-10.1) Magnesium Level 1.4 mg/dL (1.8-2.4) Medications Active Scripts Medications Dose Route/Sig Max Daily Dose Days Date Category Ibuprofen 800 Mg Tablet 800 Mg PO PRN Q6HRS PRN 09/19/21 Reported Acetaminophen 500 Mg Tablet 1,000 Mg PO PRN Q6HRS PRN 09/19/21 Reported Omeprazole 40 Mg Capsule.dr 40 Mg PO DAILY 09/19/21 Reported Impression . IMPRESSION: 1. Acute hypercapnic respiratory failure secondary to toxic encephalopathy from the effect of Ativan and morphine resulting in acute hypercapnia and respiratory arrest. She had brief asystole 2. History of meth use and heavy alcohol use. 3. Abnormal CT abdomen and pelvis with evidence of choledocholithiasis or mass. 4. Leukocytosis. 5. Hypokalemia, 6. Hyperbilirubinemia along with abnormal transaminases. 7. Moderate protein-calorie malnutrition. 8. History of tobaccoism. 9. Shock, multifactorial 10. Hypomagnesemia 11. Dysphagia Plan . Updated 09/27 Off of oxygen Doing well Okay to discharge NAWAF TANG MD Sep 27, 2021 08:10
[2021-09-27] MEDS: THIAMINE 100 MG TABLET. PO SCH (09:03)
[2021-09-27] MEDS: FOLIC ACID 1 MG TABLET. PO SCH (09:04)
[2021-09-27] MEDS: MULTIVITAMIN with MINERAL TABLET. PO SCH (09:04)
[2021-09-27] MEDS: SENNOSIDES/DOCUSATE 8.6/50MG TABLET. PO SCH (09:04)
[2021-09-27] MEDS: LACTOBACILLUS RHAMNOSUS GG 1 CAPSULE. PO SCH (09:04)
[2021-09-27] MEDS: METOPROLOL TART IMMED RELEASE 50 MG TABLET. PO SCH (09:05)
[2021-09-27 09:37] LABS: ALBUMIN 2.7 g/dL (3.4-5.0); DIRECT BILIRUBIN 0.6 mg/dL (0.0-0.2); TOTAL BILIRUBIN 1.3 mg/dL (0.2-1.0); TOTAL PROTEIN 6.7 g/dL (6.4-8.2)
--- NOTE | 2021-09-27 10:46 | PDOC ---
Date of Service: DATE: 09/27/21 TIME: 10:43 Subjective: Subjective: Feels better, says gets to go home. Indicates she has a primary care provider who checks labs. No previous 'scopes. No abd pain. Objective: Vital Signs: Vital Signs Date Time Temp Pulse Resp B/P (MAP) Pulse Ox O2 Delivery O2 Flow Rate FiO2 09/27/21 10:21 165 139/111 09/27/21 07:00 97.6 16 94 Room Air 97.6 Labs: Laboratory Tests Test 09/26/21 10:52 09/26/21 21:30 09/27/21 07:50 Sodium Level 143 mmol/L Potassium Level 2.8 mmol/L 2.9 mmol/L Chloride Level 103 mmol/L Carbon Dioxide Level 27 mmol/L Anion Gap 13 Blood Urea Nitrogen 3 mg/dL Creatinine 0.4 mg/dL Estimated GFR (Cockcroft-Gault) 165.1 Glucose Level 118 mg/dL Calcium Level 8.9 mg/dL Magnesium Level 1.4 mg/dL Total Bilirubin 1.3 mg/dL Direct Bilirubin 0.6 mg/dL Aspartate Amino Transf (AST/SGOT) 36 U/L Alanine Aminotransferase (ALT/SGPT) 60 U/L Alkaline Phosphatase 256 U/L Total Protein 6.7 g/dL Albumin 2.7 g/dL PE: GEN: NAD - putting shoes on LUNGS: room air HEART: reviewed chart - tachycardia noted (?typo) ABD: soft, non-tender NEURO/PSYCH: A & O 3 A/P: Resp failure - better ACD Elevated LFTs - fluctuating Cholelithiasis, dilated CBD CRC screen - none -- She indicates plans to DC - defer to primary. GI-b[facility] would monitor LFTs w/ PCP. Follow-up w/ us for outpt scopes. See surgery to discuss possible cholecystectomy/IOC - currently not good surgical/endoscopy candidate. Justicifation of Admission Dx: Justifications for Admission: Justification of Admission Dx: Yes Respiratory Failure: Mechanical Ventilation MILTON WEI Sep 27, 2021 10:46
[2021-09-27 11:00] VITALS: BP 112/78
--- NOTE | 2021-09-27 11:01 | PDOC ---
CHERELLE HUTCHINSON [employer] 09/27/21 1100: CARDIO Progress Notes Date and Time Date of Service 09/27/2021 Time of Evaluation 1040 Subjective Subjective: No Chest Pain, No shortness of breath, No Palpitations Vitals Vitals Vital Signs Date Time Temp Pulse Resp B/P (MAP) Pulse Ox O2 Delivery O2 Flow Rate FiO2 09/27/21 10:21 165 139/111 09/27/21 07:00 97.6 16 94 Room Air 97.6 Weight Weight [ ] Input and Output Intake and Output Intake and Output 09/27/21 07:00 Intake Total 1050 ml Output Total 1000 ml Balance 50 ml Intake Oral 950 ml IV Total 100 ml Output Urine Total 1000 ml # Voids 4 # Bowel Movements 2 Laboratory Labs Laboratory Tests Test 09/26/21 21:30 09/27/21 07:50 Potassium Level 2.9 mmol/L (3.5-5.1) Total Bilirubin 1.3 mg/dL (0.2-1.0) Direct Bilirubin 0.6 mg/dL (0.0-0.2) Aspartate Amino Transf (AST/SGOT) 36 U/L (15-37) Alanine Aminotransferase (ALT/SGPT) 60 U/L (14-59) Alkaline Phosphatase 256 U/L (46-116) Total Protein 6.7 g/dL (6.4-8.2) Albumin 2.7 g/dL (3.4-5.0) Microbiology Micro Microbiology 09/22/21 Urine Culture - Final, Complete 09/22/21 Blood Culture - Preliminary, Resulted NO GROWTH AFTER 4 DAYS 09/22/21 Respiratory Culture Gram Stain - Final, Complete 09/22/21 Respiratory Culture - Final, Complete Enterobacter Cloacae Complex Physical Exam HEENT: Neck Supple W Full Motion Chest: Symmetric LUNGS: Other (diminished bases) Heart: RRR (SR) Abdomen: Soft N/T Extremities: No Edema Neurology: alert, oriented, follow commands Assessment Assessment 1. Obstructive jaundice with suspected choledocholithiasis: will need future ERCP. GS/GI following 2. Polysubstance abuse: with methamphetamines and ETOH 3. Hx of HTN 4. Encephalopathy: possible initial development of DT 5. S/P Cardiopulmonary arrest: noted asystole, unclear details and duration but suspected due to respiratory failure.S/P extubation. EF and LV WM nml per TTE 6. Persistent Hypokalemia/hypomagnesemia: remains 7. Dehydration: resolved 8. PAFIB: continues to have paroxysms with RVR this morning with likely low K and Mg. will check. Back in SR after IV lopressor 9. Fever/leukocytosis: resolved 10. Shock: multifactorial, resolved Recommendations 1. Replace K and Mg as warranted. BMP and Mg today 2. Monitor rhythm, Continue lopressor and ECASA 81 mg. Will consider for antiarrhythmic. 3. MCOT 4. If K and Mg remains low then would consider starting on aldactone and possible referral to nephrology Justicifation of Admission Dx: Justifications for Admission: Justification of Admission Dx: Yes Respiratory Failure: Mechanical Ventilation CRYSTAL LERMA MD 09/27/211: CARDIO Progress Notes Assessment Assessment Patient seen and examined. Agree with CATERING SERVICE MANAGER's assessment and plan Tele did not show any further arrhythmias Continue current medical regimen Replace K and Mg CHERELLE HUTCHINSON APRN Sep 27, 2021 11:00 CRYSTAL LERMA MD Sep 27, 2021 22:19
[2021-09-27 11:06] LABS: CALCIUM 9.2 mg/dL (8.5-10.1); CREATININE 0.3 mg/dL (0.6-1.0); GFR 230.1; MAGNESIUM 1.8 mg/dL (1.8-2.4); POTASSIUM 3.4 mmol/L (3.5-5.1)
--- NOTE | 2021-09-27 11:11 | PDOC ---
[facility] PROGRESS NOTE Date of Service DOS: DATE: 09/27/21 TIME: 11:08 Chief Complaint Chief Complaint Sepsis Choledocholithiasis Acute hypoxic respiratory failure Interstitial pneumonitis/aspiration pneumonia Transaminitis Hypokalemia Hypomagnesemia Methamphetamine abuse History of Present Illness History of Present Illness 09/27/2021 Patient seen and examined Discussed with RN Discussed with case management Chart reviewed Patient seems to be at her baseline wants to go home Her is present he agrees and is good support for 09/26/2021 Patient seen and examined in the ICU Her is present She is up in the chair Still short of breath but looks better Chart reviewed Discussed with case management Discussed with RN We have ordered some PT OT 09/24/2021 Patient seen and examined in the ICU Her is present He seems to be good support for The patient was just extubated within the last hour She is coughing a little but alert Chart reviewed Discussed with case management Discussed with RN 09/23/2021 Patient seen and examined in the ICU She remains on the ventilator AC/20/500/30 5% with 5 of PEEP Art line functioning well Has a banana bag pain Sedated with fentanyl and Versed Potassium replacement in progress Normal saline at TKO Discussed with case management Discussed with RN Chart reviewed She remains critically ill 09/21: Febrile, tachycardic. She remains intubated with PEEP 5, FiO2 35%. Continue Zosyn for choledocholithiasis. Plan for possible cholecystectomy if stabilizes. Critical care time 30 minutes spent reviewing charts, reviewing labs, imaging, discussion with RN. 4/3: Afebrile. FiO2 35, PEEP 5. Sodium 155, potassium 3.0, magnesium 1.6. Ordered D5 water with potassium, and 2 g MG sulfate. Nurse reports that she discussed with lab about precipitous drop in hemoglobin of 4 g. Due to no obvious signs of bleeding we will recheck, and if accurate transfuse 1 unit PRBCs and consult GI. Per general surgery, currently prohibitive surgical candidate. 30 minutes critical care time spent reviewing charts, reviewing labs, reviewing imaging, discussion with RN. Vitals/I&O Vitals/I&O: Vital Signs Date Time Temp Pulse Resp B/P (MAP) Pulse Ox O2 Delivery O2 Flow Rate FiO2 09/27/21 10:21 165 139/111 09/27/21 07:00 97.6 16 94 Room Air 97.6 I & O 4/7/22 4/7/22 4/8/22 15:00 23:00 07:00 Intake Total 600 ml 450 ml Output Total 1000 ml Balance -400 ml 450 ml Physical Exam General: Alert, Oriented X3, Cooperative Heart: Regular rate Lungs: Clear Abdomen: Soft, No tenderness Extremities: No clubbing, No cyanosis Skin: No breakdown Labs Labs: Laboratory Tests Test 09/26/21 21:30 09/27/21 07:50 Potassium Level 2.9 mmol/L (3.5-5.1) 3.4 mmol/L (3.5-5.1) Sodium Level 148 mmol/L (136-145) Chloride Level 109 mmol/L (98-107) Carbon Dioxide Level 26 mmol/L (21-32) Anion Gap 13 (6-14) Blood Urea Nitrogen 3 mg/dL (7-20) Creatinine 0.3 mg/dL (0.6-1.0) Estimated GFR (Cockcroft-Gault) 230.1 Glucose Level 92 mg/dL (70-99) Calcium Level 9.2 mg/dL (8.5-10.1) Magnesium Level 1.8 mg/dL (1.8-2.4) Total Bilirubin 1.3 mg/dL (0.2-1.0) Direct Bilirubin 0.6 mg/dL (0.0-0.2) Aspartate Amino Transf (AST/SGOT) 36 U/L (15-37) Alanine Aminotransferase (ALT/SGPT) 60 U/L (14-59) Alkaline Phosphatase 256 U/L (46-116) Total Protein 6.7 g/dL (6.4-8.2) Albumin 2.7 g/dL (3.4-5.0) Assessment and Plan Assessmemt and Plan Problems Medical Problems: (1) Cholecystitis, acute with cholelithiasis Status: Acute (2) Choledocholithiasis Status: Acute (3) Hyperbilirubinemia Status: Acute (4) Obstructive jaundice Status: Acute (5) Transaminitis Status: Acute Resolving respiratory failure Resolving sepsis Choledocholithiasis Interstitial pneumonitis/aspiration pneumonia Transaminitis Hypokalemia Hypomagnesemia Methamphetamine abuse Plan Probable discharge this afternoon Comment Review of Relevant I have reviewed the following items michael (where applicable) has been applied. Medications: Current Medications Medications (Trade) Dose Ordered Sig/Mitch Route PRN Reason Start Time Stop Time Status Last Admin Dose Admin Metoprolol Tartrate (Lopressor) 50 mg BID PO 09/26/21 21:00 09/27/21 09:05 Aspirin (Ecotrin) 81 mg DAILYWBKFT PO 09/27/21 08:00 09/27/21 09:04 Pantoprazole Sodium (Protonix) 40 mg DAILYAC PO 09/27/21 07:30 09/27/21 09:05 Potassium Chloride (Klor-Con) 40 meq 1X ONCE PO 09/26/21 11:30 09/26/21 11:32 DC 09/26/21 11:50 Potassium Chloride (Klor-Con) 40 meq 1X ONCE PO 09/26/21 13:30 09/26/21 13:31 DC 09/26/21 14:05 Magnesium Sulfate 100 ml @ 25 mls/hr 1X ONCE IV 09/26/21 18:00 09/26/21 21:59 DC 09/26/21 18:00 Lorazepam (Ativan Inj) 2 mg PRN Q4HRS PRN IVP ANXIETY / AGITATION 09/26/21 21:00 09/26/21 21:42 Potassium Chloride (Klor-Con) 40 meq 1X ONCE PO 09/26/21 22:30 09/26/21 22:31 DC 09/26/21 23:07 Potassium Chloride (Klor-Con) 40 meq 1X ONCE PO 09/27/21 08:00 09/27/21 08:01 DC 09/27/21 09:04 Justifications for Admission Other Justification RACH DIEHL III DO Sep 27, 2021 11:11
[2021-09-27] MEDS ORDERED: METO50TA6 PO (11:13)
[2021-09-27] MEDS ORDERED: AMOX1TAB10 PO (11:13)
[2021-09-27 11:35] LABS: CHOLESTEROL/HDL RATIO 5.9
[2021-09-27 15:00] VITALS: BP 109/59
--- NOTE | 2021-09-27 17:21 | NUR ---
Discharge Note: CALISTA PINTO Discharge instructions and discharge home medications reviewed with Patient and a copy given. All questions have been answered and understanding verbalized. The following instructions and handouts were given: worsening symptoms, follow up appointments, information of DASH diet per cardiology, education on hypokalemia, and medication reconcilliation. Discontinued lines and drains: IV pulled from right forearm, telemetry removed, and skin intact. Patient discharged to Home with Self Care accompanied by spouse via private vehicle.
[2021-09-28] MEDS ORDERED: POTASSIUM CHLORIDE 10 MEQ TABLET.ER. PO SCH (08:00)
== END 2021-09-27 16:50 | disposition home or self-care (01) | DRG 870 ==
LOC: ER 15:05 → 6 SOUTH 17:07 → 1 WEST ICU 09-20 01:11 → 2 NORTH 09-26 18:32
PROVIDERS: ADMIT Student in an Organized Health Care Education/Training Program; ATTEND Student in an Organized Health Care Education/Training Program
PROC: 5A1955Z Respiratory Ventilation, Greater than 96 Consecutive Hours (ICD-10-PCS; principal; 2021-09-19)
PROC: 5A09357 Assistance with Respiratory Ventilation, Less than 24 Consecutive Hours, Continuous Positive Airway Pressure (ICD-10-PCS; 2021-09-19)
PROC: 0BH17EZ Insertion of Endotracheal Airway into Trachea, Via Natural or Artificial Opening (ICD-10-PCS; 2021-09-19)
DX: A41.9 Sepsis, unspecified organism (principal); J69.0 Pneumonitis due to inhalation of food and vomit; J96.02 Acute respiratory failure with hypercapnia; G92.9 Unspecified toxic encephalopathy; J96.01 Acute respiratory failure with hypoxia; E44.0 Moderate protein-calorie malnutrition; E87.0 Hyperosmolality and hypernatremia; K80.31 Calculus of bile duct with cholangitis, unspecified, with obstruction; K80.63 Calculus of gallbladder and bile duct with acute cholecystitis with obstruction; R57.9 Shock, unspecified; D64.9 Anemia, unspecified; E83.42 Hypomagnesemia; E86.0 Dehydration; E86.1 Hypovolemia; E87.6 Hypokalemia; F15.10 Other stimulant abuse, uncomplicated; F17.210 Nicotine dependence, cigarettes, uncomplicated; I10 Essential (primary) hypertension; I48.0 Paroxysmal atrial fibrillation; J84.89 Other specified interstitial pulmonary diseases; R13.10 Dysphagia, unspecified; F10.20 Alcohol dependence, uncomplicated; K21.9 Gastro-esophageal reflux disease without esophagitis; R79.89 Other specified abnormal findings of blood chemistry; F19.10 Other psychoactive substance abuse, uncomplicated; Z98.51 Tubal ligation status
CPT/HCPCS: 36415; 36600; 71045; 74018; 74177; 76705; 80048; 80053; 80061; 80076; 80307; 81001; 82378; 82550; 82607; 82805; 83540; 83550; 83605; 83690; 83735; 84100; 84132; 84484; 85007; 85025; 85027; 85610; 85730; 86301; 86705; 86709; 86803; 87040; 87070; 87077; 87086; 87186; 87340; 93005; 93306; 94002; 94003; 94660; 94760; 96361; 96365; 96375; 99407; C9113; G0480; J1644; J2060; J2250; J2270; J2405; J2543; J2704; J3010; J3411; J3475; J3480; J3490; J7030; J7060; Q9967; 92526-GN; 92610-GN; 97116-GP; 97530-GP; 99285-25; C8929; G0378

== ENCOUNTER → 2021-11-06 | Outpatient (CLI) | payer BC ==
[~2021-11-06] MED LIST: ACET500T68 PO; AMOX1TAB10 PO; IBUP-1060 PO; METO50TA6 PO; OMEP40CA7 PO
--- NOTE | 2021-11-06 15:59 | RAD ---
EXAMINATION: MRI/MRCP abdomen without IV contrast. INDICATION:56 years, Female, abnormal CT, cholangitis. TECHNIQUE: Multiplanar multisequence MRI/MRCP of the abdomen was performed. 3-D coronal heavily T2-we ighted MRCP sequences obtained. COMPARISON: CT dated the 09/19/2021 FINDINGS: LOWER CHEST: Unremarkable. ABDOMEN: Moderate to severe intrahepatic and extrahepatic biliary ductal dilation secondary to 2.7 x 1.4 cm ob structing distal choledocholithiasis. The maximum diameter of the common bile duct measures 1.7 cm. C ommon bile duct distal to the aforementioned choledocholithiasis is normal in caliber, measures 0.4 c m. Multiple cholelithiasis without MRI evidence of acute cholecystitis. Cystic duct is patent. Normal size and morphology of the liver. Mild diffuse hepatic steatosis. No suspicious focal hepatic lesion, within the limitation of noncontrast exam. Spleen is unremarkable. Normal bright T1 signal in tensity of the pancreas. No main pancreatic ductal dilation. No adrenal nodule. No hydronephrosis in either kidney. No bowel dilation. No lymphadenopathy in the abdomen by size criteria. Normal caliber abdominal aorta. No ascites. MUSCULOSKELETAL STRUCTURES: Mild levoconvex scoliosis of lumbar spine with severe multilevel degenerative changes. No suspicious osseous lesion. IMPRESSION: 1. Persistent moderate to severe intrahepatic and extrahepatic biliary ductal dilation, secondary to 2.7 cm obstructing distal choledocholithiasis. Recommend ERCP. 2. Multiple cholelithiasis. 3. Mild hepatic steatosis. Electronically signed by: Marbin Duran MD (11/06/2021 10:18 AM) [id number]
== END ==
LOC: MRI 07:58
PROVIDERS: ATTEND Internal Medicine Gastroenterology
DX: K80.20 Calculus of gallbladder without cholecystitis without obstruction (principal); K76.0 Fatty (change of) liver, not elsewhere classified; K83.8 Other specified diseases of biliary tract; M47.816 Spondylosis without myelopathy or radiculopathy, lumbar region; M41.86 Other forms of scoliosis, lumbar region; K80.50 Calculus of bile duct without cholangitis or cholecystitis without obstruction; K83.09 Other cholangitis
CPT/HCPCS: 74181

== ENCOUNTER 2021-11-12 11:51 | Inpatient (IN) | payer BC ==
[~2021-11-12] VITALS: Ht 162.6 cm; Wt 63.0 kg
[~2021-11-12 11:51] MED LIST changes: +IV RINGERS,LACTATED 1000ML 1,000 ML IV SCH
[2021-11-12] MEDS ORDERED: SUCCINYLCHOLINE 200 MG/10 ML VIAL. ONE (12:00)
[2021-11-12] MEDS ORDERED: PROPOFOL 10 MG/ML (20ML) VIAL. IV ONE (12:00)
[2021-11-12] MEDS ORDERED: ESMOLOL 100 MG/10 ML VIAL. IVP ONE (12:00)
[2021-11-12 12:16] VITALS: BP 124/81
[2021-11-12] MEDS ORDERED: IOHEXOL 300 MG/ML 50 ML VIAL. ONE (12:50)
[2021-11-12] MEDS ORDERED: ONDANSETRON PF 4 MG/2 ML VIAL. ONE (13:12)
[2021-11-12] MEDS ORDERED: LIDOCAINE 2% PF 5 ML VIAL. ONE (13:13)
[2021-11-12] MEDS ORDERED: METOPROLOL IV PUSH 5 MG/5 ML VIAL. IVP ONE (13:48)
--- NOTE | 2021-11-12 13:53 | EKG ---
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
[2021-11-12] MEDS ORDERED: AMIODARONE 150 MG in IV DEXTROSE 5% 100ML 100 ML IV ONE (14:00)
--- NOTE | 2021-11-12 14:04 | PDOC2 ---
CHERELLE HUTCHINSON [employer] 11/12/21 1403: CARDIAC CONSULT DATE OF CONSULT Date of Consult DATE: 11/12/21 TIME: 13:48 REASON FOR CONSULT Reason for Consult: new AFIB, prior to ERCP REFERRING PHYSICIAN Referring Physician: Flower SOURCE Source: Chart review, Patient HISTORY OF PRESENT ILLNESS HISTORY OF PRESENT ILLNESS This is a 56 yo female admitted for planned ERCP. Preop her HR went as high as 210 and noted with AFIB RVR. I saw her over a month ago for PAFIB with underlying gallbladder issues, sepsis and also UDS+ for meth and ETOH. She also had asystolic cardiac arrest on that admission unclear details. Presently she is in AFIB RVR HR in the 150s with no symptoms. Her tele strip during preop was SR then converted to AFIB RVR. Has been having some loose stools but no watery stools, nausea or vomiting. Reports that he has absatin from meth and ETOH for about a month now since getting discharged from here. He only wore her heart monitor for 20 hrs because it fell off so she did not complete the week. She was supposed to be seen in our office but due to time conflict she rescheduled this. . PAST MEDICAL HISTORY Cardiovascular: AFIB, HTN, Other (cardiac arrest) GI: GERD Hepatobiliary: Other (obstructive jaundice) Psych: Other (addictions) Rheumatologic: No pertinent hx Infectious disease: No pertinent hx ENT: No pertinent hx Renal/: No pertinent hx Endocrine: No pertinent hx Dermatology: No pertinent hx PAST SURGICAL HISTORY Past Surgical History: , Tubal Ligation FAMILY HISTORY Family History noncontributory to CV SOCIAL HISTORY Smoke: <1 pack per day ALCOHOL: heavy Drugs: Crystal meth Lives: with Family CURRENT MEDICATIONS CURRENT MEDICATIONS Current Medications Medications (Trade) Dose Ordered Sig/Mitch Route PRN Reason Start Time Stop Time Status Last Admin Dose Admin Ringer's Solution 1,000 ml @ 50 mls/hr Q20H IV 11/12/21 07:00 11/12/21 18:59 11/12/21 12:16 ALLERGIES ALLERGIES: Coded Allergies: No Known Drug Allergies (Unverified , 11/12/21) ROS Review of System 14 point ROS evaluated with pertinent positives noted per HPI PHYSICAL EXAM General: Alert, Oriented X3, Cooperative, No acute distress HEENT: Atraumatic, Mucous membr. moist/pink Lungs: Clear to auscultation, Normal air movement Heart: Other (AFIB RVR) Abdomen: Soft, No tenderness Extremities: No cyanosis, No edema Skin: No breakdown, No significant lesion Neuro: Normal speech, Sensation intact Psych/Mental Status: Mental status NL, Mood NL MUSCULOSKELETAL: Full range of motion without pain VITALS/I&O VITALS/I&O: Vital Signs Date Time Temp Pulse Resp B/P (MAP) Pulse Ox O2 Delivery O2 Flow Rate FiO2 11/12/21 12:30 98.6 80 18 124/81 98 Room Air 98.6 LABS Lab: Laboratory Tests Test 11/12/21 12:00 POC SARS CoV-2 Antigen Negative (NEGATIVE) ECHOCARDIOGRAM ECHOCARDIOGRAM <Conclusion> The left ventricular systolic function is normal. The ejection fraction is 65-70%. There is normal LV segmental wall motion. Trace mitral regurgitation. Mild tricuspid regurgitation. The PA pressure was estimated at 40 mmHg. There is no evidence of significant pericardial effusion. DATE: 09/20/21 1717 ASSESSMENT/PLAN ASSESSMENT/PLAN 1. PAFIB with RVR: No s/s Noted initially a month ago. Only wore MCOT for 20 hrs no afib noted at that time 2. Hx of Obstructive jaundice with choledocholithiasis: ERCP cancelled today due to AFIB RVR 3. Hx of Polysubstance abuse: with methamphetamines and ETOH, reports abstinence for a month 4. Hypertension: controlled Recommendations 1. CBC, CMP, Mg, UDS 2. Metoprolol and esmolol was given. Start on amiodarone drip. Lovenox. 3. Follow GI recommendation PERCY CASTRO MD 11/12/21 1538: CARDIAC CONSULT ASSESSMENT/PLAN ASSESSMENT/PLAN Patient seen and examined. Agree with above nurse practitioner note. Emergently called to the GI lab due to A. fib with RVR. Evaluated patient and she appeared to be stable. Discussed with patient, anesthesia, GI team and the patient's family Plan for initiation of medical therapy and anticoagulation. Will likely need to delay her ERCP unless its emergent. Supportive care for now. Critical care time 35 minutes. CHERELLE HUTCHINSON APRN November 12, 2021 14:03 PERCY CASTRO MD November 12, 2021 15:38
--- NOTE | 2021-11-12 14:27 | PDOC1 ---
History and Physical Date of Admission Date of Admission DATE: 11/12/21 TIME: 14:27 Identification/Chief Complaint Chief Complaint A. fib with RVR Source Source: Chart review, Patient History of Present Illness History of Present Illness Patient is a 53-year-old female with past medical history hypertension, paroxysmal A. fib, who presents as a direct admission from outpatient surgery clinic due to A. fib with RVR. She was having an ERCP today by Dr. Cleaning, when she suddenly went into A. fib with RVR. This was noted on her previous admission and she was told by cardiology to wear Holter monitor and to follow-up on an outpatient basis but she did not. Upon my evaluation she has no complaints. EKG showed irregularly irregular rhythm consistent with her diagnosis of A. fib. We will admit for further medical management Past Medical History Cardiovascular: AFIB, HTN, Other (cardiac arrest) GI: GERD Hepatobiliary: Other (obstructive jaundice) Psych: Other (addictions) Past Surgical History Past Surgical History: , Tubal Ligation Family History Family History: Cancer, Diabetes Social History Smoke: <1 pack per day ALCOHOL: heavy Drugs: Crystal meth Current Medications Current Medications Current Medications Ringer's Solution 1,000 ml @ 50 mls/hr Q20H IV Last administered on 11/12/21at 12:16; Start 11/12/21 at 07:00; Stop 11/12/21 at 18:59 Cefazolin Sodium/ Dextrose 50 ml @ 100 mls/hr 1X ONCE IV ; Start 11/12/21 at 13:00; Stop 11/12/21 at 13:29; Status DC Iohexol (Omnipaque 300 Mg/ml) 50 ml STK-MED ONCE .ROUTE ; Start 11/12/21 at 12:50; Stop 11/12/21 at 12:50; Status DC Ondansetron HCl (Zofran) 4 mg STK-MED ONCE .ROUTE ; Start 11/12/21 at 13:12; Stop 11/12/21 at 13:13; Status DC Lidocaine HCl (Lidocaine Pf 2% Vial) 5 ml STK-MED ONCE .ROUTE ; Start 11/12/21 at 13:13; Stop 11/12/21 at 13:13; Status DC Metoprolol Tartrate (Lopressor Vial) 5 mg STK-MED ONCE IVP ; Start 11/12/21 at 13:48; Stop 11/12/21 at 13:48; Status DC Enoxaparin Sodium (Lovenox 60mg Syringe) 60 mg 1X ONCE SQ ; Start 11/12/21 at 14:00; Stop 11/12/21 at 14:16; Status DC Amiodarone HCl 150 mg/Dextrose 103 ml @ 618 mls/hr 1X ONCE IV ; Start 11/12/21 at 14:00; Stop 11/12/21 at 14:16; Status DC Active Scripts Active Amox Tr-K Clv 500-125 Mg Tab (Amoxicillin/Potassium Clav) 1 Each Tablet 1 Tab PO BID Metoprolol Tartrate 50 Mg Tablet 50 Mg PO BID 30 Days Reported Ibuprofen 800 Mg Tablet 800 Mg PO PRN Q6HRS PRN Acetaminophen 500 Mg Tablet 1,000 Mg PO PRN Q6HRS PRN Omeprazole 40 Mg Capsule.dr 40 Mg PO DAILY Allergies Allergies: Coded Allergies: No Known Drug Allergies (Unverified , 11/12/21) ROS Review of System GENERAL: No history of weight change, weakness or fevers. SKIN: No bruising, hair changes or rashes. EYES: No blurred, double or loss of vision. NOSE AND THROAT: No history of nosebleeds, hoarseness or sore throat. HEART: Denies chest pain, denies palpitations. LUNGS: Denies cough, hemoptysis, wheezing or shortness of breath. GASTROINTESTINAL: Denies nausea, vomiting, abdominal pain. GENITOURINARY: Denies dysuria, frequency, urgency, hematuria. NEUROLOGIC: Denies history of numbness, tingling, tremor or weakness. PSYCHIATRIC: Denies anxiety, denies depression. ENDOCRINE: No history of heat or cold intolerance, polyuria or polydipsia. EXTREMITIES: Denies muscle weakness, joint pain, pain on walking or stiffness. Physical Exam Physical Exam General: Alert, Oriented X3, Cooperative, No acute distress HEENT: PERRLA, EOMI Lungs: Clear to auscultation, Normal air movement Heart: Tachycardic, irregularly irregular rhythm. Cardiovascular: S1, S2 Abdomen: Normal bowel sounds, Soft, No tenderness Extremities: No clubbing, No cyanosis Skin: No rashes, No significant lesion Neuro: Normal speech, Normal tone, Sensation intact Psych/Mental Status: Mental status NL, Mood NL Vitals Vitals Vital Signs Date Time Temp Pulse Resp B/P (MAP) Pulse Ox O2 Delivery O2 Flow Rate FiO2 11/12/21 12:30 98.6 80 18 124/81 98 Room Air 98.6 Labs Labs Laboratory Tests Test 11/12/21 12:00 POC SARS CoV-2 Antigen Negative (NEGATIVE) Laboratory Tests Test 11/12/21 12:00 POC SARS CoV-2 Antigen Negative (NEGATIVE) VTE Prophylaxis Ordered VTE Prophylaxis Devices: No VTE Pharmacological Prophylaxi: Yes Assessment/Plan Assessment/Plan A. fib with RVR History alcohol abuse History of methamphetamine abuse Plan: Consultation placed to cardiology Spoke with Dr. Campos at bedside, will provide amiodarone bolus. If she is not cardiovert with medical treatment we will continue amiodarone gtt and some cardioversion tomorrow. Will check UDS, magnesium, TSH. Telemetry Resume home medications FEN - Cardiac diet PPX - Heparin FULL CODE Dispo - inpatient for above Justifications for Admission Other Justification JANICE GONZALEZ MD November 12, 2021 14:27
[2021-11-12 14:30] LABS: BASO % 0 % (0-3); EOS # 0.3 x10^3/uL (0.0-0.7); EOS % 5 % (0-3); HEMATOCRIT 36.6 % (36.0-47.0); HEMOGLOBIN 12.3 g/dL (12.0-15.5); LYMPH # 2.2 x10^3/uL (1.0-4.8); LYMPH % 43 % (24-48); MEAN CORPUSCULAR HEMOGLOBIN 28 pg (25-35); MEAN CORPUSCULAR HGB CONC 34 g/dL (31-37); MEAN CORPUSCULAR VOLUME 84 fL (79-100); MONO # 0.5 x10^3/uL (0.0-1.1); MONO % 10 % (0-9); NEUT # 2.2 x10^3/uL (1.8-7.7); NEUT % 42 % (31-73); PLATELET COUNT 356 x10^3/uL (140-400); RED BLOOD COUNT 4.34 x10^6/uL (3.50-5.40); RED CELL DISTRIBUTION WIDTH 14.8 % (11.5-14.5); WHITE BLOOD COUNT 5.3 x10^3/uL (4.0-11.0)
[2021-11-12 14:39] LABS: PROTHROMBIN TIME PATIENT 12.9 SEC (11.7-14.0)
[2021-11-12] MEDS ORDERED: CALCIUM CARBONATE 500 MG TAB.CHEW PO PRN (14:45)
[2021-11-12] MEDS ORDERED: HYDROcodone/APAP 5/325MG 1 TAB TABLET PO PRN (14:45)
[2021-11-12] MEDS ORDERED: ZOLPIDEM 5 MG TABLET. PO PRN (14:45)
[2021-11-12] MEDS ORDERED: ONDANSETRON PF 4 MG/2 ML VIAL. IVP PRN (14:45)
[2021-11-12] MEDS ORDERED: ACETAMINOPHEN 325 MG TABLET. PO PRN (14:45)
[2021-11-12] MEDS ORDERED: MAG HYDROX/ALUMINUM HYD/SIMETH 30 ML ORAL.SUSP PO PRN (14:45)
[2021-11-12 14:52] LABS: ALBUMIN 2.9 g/dL (3.4-5.0); ALBUMIN/GLOBULIN RATIO 0.7 (1.0-1.7); CALCIUM 9.4 mg/dL (8.5-10.1); CREATININE 0.4 mg/dL (0.6-1.0); GFR 165.1; MAGNESIUM 1.5 mg/dL (1.8-2.4); TOTAL BILIRUBIN 2.5 mg/dL (0.2-1.0); TOTAL PROTEIN 6.8 g/dL (6.4-8.2)
[2021-11-12 14:57] LABS: POTASSIUM 2.4 mmol/L (3.5-5.1)
[2021-11-12] MEDS ORDERED: HEPARIN for SUB-Q USE 5,000 UNIT/ML VIAL. SQ SCH (15:00)
[2021-11-12 15:10] LABS: BARBITURATES NEG (NEG); BENZODIAZEPINES NEG (NEG); CANNABINOIDS NEG (NEG); COCAINE NEG (NEG); METHADONE NEG (NEG); OPIATES NEG (NEG); PHENCYCLIDINE NEG (NEG)
[2021-11-12 15:17] LABS: AMPHETAMINE/METHAMPHETAMINE NEG (NEG)
[2021-11-12] MEDS ORDERED: POTASSIUM CHLORIDE 20 MEQ TABLET.ER. PO ONE ×2 (15:30→21:00)
[2021-11-12 15:45] VITALS: BP 137/70
[2021-11-12] MEDS ORDERED: MAGNESIUM SULFATE 2GM 50 ML IV ONE (16:00)
[2021-11-12] MEDS: PANTOPRAZOLE 40 MG TABLET.DR. PO SCH (16:51)
[2021-11-12] MEDS: METOPROLOL TART IMMED RELEASE 50 MG TABLET. PO SCH (19:41)
[2021-11-12 19:45] VITALS: BP 115/67
[2021-11-12 23:38] VITALS: BP 118/66
[2021-11-13 02:46] VITALS: BP 119/65
[2021-11-13 05:09] LABS: HEMATOCRIT 36.5 % (36.0-47.0); HEMOGLOBIN 12.3 g/dL (12.0-15.5); RED BLOOD COUNT 4.37 x10^6/uL (3.50-5.40); WHITE BLOOD COUNT 7.8 x10^3/uL (4.0-11.0)
[2021-11-13 05:22] LABS: CALCIUM 8.8 mg/dL (8.5-10.1); CREATININE 0.5 mg/dL (0.6-1.0); GFR 127.6; POTASSIUM 3.9 mmol/L (3.5-5.1)
[2021-11-13] MEDS: PANTOPRAZOLE 40 MG TABLET.DR. PO SCH ×2 (05:55→08:50)
[2021-11-13 07:00] VITALS: BP 128/72
[2021-11-13] MEDS: METOPROLOL TART IMMED RELEASE 50 MG TABLET. PO SCH (08:50)
--- NOTE | 2021-11-13 08:56 | PDOC ---
[employer] PROGRESS NOTE Date of Service DOS: DATE: 11/13/21 TIME: 08:51 Chief Complaint Chief Complaint Afib with RV - historically with afib a month ago. Didn't complete cardiac monitoring outpatient. 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 fib, who presents as a direct admission from outpatient surgery clinic due to A. fib with RVR. She was having an ERCP today by Dr. Cleaning, when she suddenly went into A. fib with RVR. This was noted on her previous admission and she was told by cardiology to wear Holter monitor and to follow-up on an outpatient basis but she did not. Upon my evaluation she has no complaints. EKG showed irregularly irregular rhythm consistent with her diagnosis of A. fib. Admitted for further medical management 11/13: Complaint of sore throat today heart rate and rhythm better controlled appears to be sinus on telemetry and currently. Potassium was 2.9 replaced improved magnesium also replaced but currently is 1.7 this morning. TSH returned undetectable is pending T4 and T3 and thyroid ultrasound. GI will delay ERCP Vitals/I&O Vitals/I&O: Vital Signs Date Time Temp Pulse Resp B/P (MAP) Pulse Ox O2 Delivery O2 Flow Rate FiO2 11/13/21 07:40 Room Air 11/13/21 02:46 99.4 89 18 119/65 (83) 95 99.4 I & O 11/12/21 11/12/21 11/13/21 15:00 23:00 07:00 Intake Total 618 ml 1280 ml 200 ml Balance 618 ml 1280 ml 200 ml Physical Exam General: Alert, Oriented X3, Cooperative, No acute distress Heart: Other (AFIB RVR) Lungs: Clear Abdomen: Soft, No tenderness Extremities: No cyanosis, No edema Skin: No breakdown, No significant lesion Labs Labs: Laboratory Tests Test 11/12/21 12:00 11/12/21 14:15 11/12/21 14:35 11/13/21 04:30 POC SARS CoV-2 Antigen Negative (NEGATIVE) White Blood Count 5.3 x10^3/uL (4.0-11.0) 7.8 x10^3/uL (4.0-11.0) Red Blood Count 4.34 x10^6/uL (3.50-5.40) 4.37 x10^6/uL (3.50-5.40) Hemoglobin 12.3 g/dL (12.0-15.5) 12.3 g/dL (12.0-15.5) Hematocrit 36.6 % (36.0-47.0) 36.5 % (36.0-47.0) Mean Corpuscular Volume 84 fL (79-100) 84 fL (79-100) Mean Corpuscular Hemoglobin 28 pg (25-35) 28 pg (25-35) Mean Corpuscular Hemoglobin Concent 34 g/dL (31-37) 34 g/dL (31-37) Red Cell Distribution Width 14.8 % (11.5-14.5) 15.0 % (11.5-14.5) Platelet Count 356 x10^3/uL (140-400) 331 x10^3/uL (140-400) Neutrophils (%) (Auto) 42 % (31-73) Lymphocytes (%) (Auto) 43 % (24-48) Monocytes (%) (Auto) 10 % (0-9) Eosinophils (%) (Auto) 5 % (0-3) Basophils (%) (Auto) 0 % (0-3) Neutrophils # (Auto) 2.2 x10^3/uL (1.8-7.7) Lymphocytes # (Auto) 2.2 x10^3/uL (1.0-4.8) Monocytes # (Auto) 0.5 x10^3/uL (0.0-1.1) Eosinophils # (Auto) 0.3 x10^3/uL (0.0-0.7) Basophils # (Auto) 0.0 x10^3/uL (0.0-0.2) Prothrombin Time 12.9 SEC (11.7-14.0) Prothromb Time International Ratio 1.0 (0.8-1.1) Sodium Level 147 mmol/L (136-145) 146 mmol/L (136-145) Potassium Level 2.4 mmol/L (3.5-5.1) 3.9 mmol/L (3.5-5.1) Chloride Level 111 mmol/L (98-107) 114 mmol/L (98-107) Carbon Dioxide Level 22 mmol/L (21-32) 22 mmol/L (21-32) Anion Gap 14 (6-14) 10 (6-14) Blood Urea Nitrogen 10 mg/dL (7-20) 15 mg/dL (7-20) Creatinine 0.4 mg/dL (0.6-1.0) 0.5 mg/dL (0.6-1.0) Estimated GFR (Cockcroft-Gault) 165.1 127.6 BUN/Creatinine Ratio 25 (6-20) Glucose Level 112 mg/dL (70-99) 127 mg/dL (70-99) Calcium Level 9.4 mg/dL (8.5-10.1) 8.8 mg/dL (8.5-10.1) Magnesium Level 1.5 mg/dL (1.8-2.4) 1.7 mg/dL (1.8-2.4) Total Bilirubin 2.5 mg/dL (0.2-1.0) Aspartate Amino Transf (AST/SGOT) 57 U/L (15-37) Alanine Aminotransferase (ALT/SGPT) 61 U/L (14-59) Alkaline Phosphatase 434 U/L (46-116) Total Protein 6.8 g/dL (6.4-8.2) Albumin 2.9 g/dL (3.4-5.0) Albumin/Globulin Ratio 0.7 (1.0-1.7) Thyroid Stimulating Hormone (TSH) < 0.007 uIU/mL (0.358-3.74) Urine Opiates Screen Neg (NEG) Urine Methadone Screen Neg (NEG) Urine Barbiturates Neg (NEG) Urine Phencyclidine Screen Neg (NEG) Urine Amphetamine/Methamphetamine Neg (NEG) Urine Benzodiazepines Screen Neg (NEG) Urine Cocaine Screen Neg (NEG) Urine Cannabinoids Screen Neg (NEG) Urine Ethyl Alcohol Neg (NEG) Comment Review of Relevant I have reviewed the following items michael (where applicable) has been applied. Medications: Current Medications Medications (Trade) Dose Ordered Sig/Mitch Route PRN Reason Start Time Stop Time Status Last Admin Dose Admin Enoxaparin Sodium (Lovenox 60mg Syringe) 60 mg 1X ONCE SQ 11/12/21 14:00 11/12/21 14:16 DC 11/12/21 14:30 Amiodarone HCl 150 mg/Dextrose 103 ml @ 618 mls/hr 1X ONCE IV 11/12/21 14:00 11/12/21 14:16 DC 11/12/21 14:32 Acetaminophen/ Hydrocodone Bitart (Lortab 5/325) 1 tab PRN Q4HRS PRN PO MILD PAIN 1-3 11/12/21 14:45 11/12/21 22:29 Potassium Chloride (Klor-Con) 40 meq 1X ONCE PO 11/12/21 15:30 11/12/21 15:31 DC 11/12/21 15:46 Potassium Chloride (Klor-Con) 40 meq 1X ONCE PO 11/12/21 21:00 11/12/21 21:01 DC 11/12/21 19:38 Magnesium Sulfate 50 ml @ 25 mls/hr 1X ONCE IV 11/12/21 16:00 11/12/21 17:59 DC 11/12/21 16:16 Metoprolol Tartrate (Lopressor) 50 mg BID PO 11/12/21 21:00 11/12/21 19:41 Pantoprazole Sodium (Protonix) 40 mg DAILYAC PO 11/12/21 16:30 11/12/21 16:51 Justifications for Admission Other Justification VINCE LÓPEZ MD November 13, 2021 08:56
[2021-11-13] MEDS ORDERED: MAGNESIUM SULFATE 4GM 100 ML IV ONE (09:00)
[2021-11-13 11:00] VITALS: BP 117/61
--- NOTE | 2021-11-13 11:02 | PDOC ---
CHERELLE HUTCHINSON [employer] INSPECT[employer] 11/13/21 1102: CARDIO Progress Notes Date and Time Date of Service 11/13/2021 Time of Evaluation 1050 Subjective Subjective: No Chest Pain, No shortness of breath, No Palpitations Vitals Vitals Vital Signs Date Time Temp Pulse Resp B/P (MAP) Pulse Ox O2 Delivery O2 Flow Rate FiO2 11/13/21 08:50 89 119/65 11/13/21 07:40 Room Air 11/13/21 07:00 98.8 18 96 98.8 Weight Weight [ ] Input and Output Intake and Output Intake and Output 11/13/21 07:00 Intake Total 2098 ml Balance 2098 ml Intake Oral 1480 ml IV Total 618 ml # Voids 2 Laboratory Labs Laboratory Tests Test 11/12/21 12:00 11/12/21 14:15 11/12/21 14:35 11/13/21 04:30 POC SARS CoV-2 Antigen Negative (NEGATIVE) White Blood Count 5.3 x10^3/uL (4.0-11.0) 7.8 x10^3/uL (4.0-11.0) Red Blood Count 4.34 x10^6/uL (3.50-5.40) 4.37 x10^6/uL (3.50-5.40) Hemoglobin 12.3 g/dL (12.0-15.5) 12.3 g/dL (12.0-15.5) Hematocrit 36.6 % (36.0-47.0) 36.5 % (36.0-47.0) Mean Corpuscular Volume 84 fL (79-100) 84 fL (79-100) Mean Corpuscular Hemoglobin 28 pg (25-35) 28 pg (25-35) Mean Corpuscular Hemoglobin Concent 34 g/dL (31-37) 34 g/dL (31-37) Red Cell Distribution Width 14.8 % (11.5-14.5) 15.0 % (11.5-14.5) Platelet Count 356 x10^3/uL (140-400) 331 x10^3/uL (140-400) Neutrophils (%) (Auto) 42 % (31-73) Lymphocytes (%) (Auto) 43 % (24-48) Monocytes (%) (Auto) 10 % (0-9) Eosinophils (%) (Auto) 5 % (0-3) Basophils (%) (Auto) 0 % (0-3) Neutrophils # (Auto) 2.2 x10^3/uL (1.8-7.7) Lymphocytes # (Auto) 2.2 x10^3/uL (1.0-4.8) Monocytes # (Auto) 0.5 x10^3/uL (0.0-1.1) Eosinophils # (Auto) 0.3 x10^3/uL (0.0-0.7) Basophils # (Auto) 0.0 x10^3/uL (0.0-0.2) Prothrombin Time 12.9 SEC (11.7-14.0) Prothromb Time International Ratio 1.0 (0.8-1.1) Sodium Level 147 mmol/L (136-145) 146 mmol/L (136-145) Potassium Level 2.4 mmol/L (3.5-5.1) 3.9 mmol/L (3.5-5.1) Chloride Level 111 mmol/L (98-107) 114 mmol/L (98-107) Carbon Dioxide Level 22 mmol/L (21-32) 22 mmol/L (21-32) Anion Gap 14 (6-14) 10 (6-14) Blood Urea Nitrogen 10 mg/dL (7-20) 15 mg/dL (7-20) Creatinine 0.4 mg/dL (0.6-1.0) 0.5 mg/dL (0.6-1.0) Estimated GFR (Cockcroft-Gault) 165.1 127.6 BUN/Creatinine Ratio 25 (6-20) Glucose Level 112 mg/dL (70-99) 127 mg/dL (70-99) Calcium Level 9.4 mg/dL (8.5-10.1) 8.8 mg/dL (8.5-10.1) Magnesium Level 1.5 mg/dL (1.8-2.4) 1.7 mg/dL (1.8-2.4) Total Bilirubin 2.5 mg/dL (0.2-1.0) Aspartate Amino Transf (AST/SGOT) 57 U/L (15-37) Alanine Aminotransferase (ALT/SGPT) 61 U/L (14-59) Alkaline Phosphatase 434 U/L (46-116) Total Protein 6.8 g/dL (6.4-8.2) Albumin 2.9 g/dL (3.4-5.0) Albumin/Globulin Ratio 0.7 (1.0-1.7) Thyroid Stimulating Hormone (TSH) < 0.007 uIU/mL (0.358-3.74) Urine Opiates Screen Neg (NEG) Urine Methadone Screen Neg (NEG) Urine Barbiturates Neg (NEG) Urine Phencyclidine Screen Neg (NEG) Urine Amphetamine/Methamphetamine Neg (NEG) Urine Benzodiazepines Screen Neg (NEG) Urine Cocaine Screen Neg (NEG) Urine Cannabinoids Screen Neg (NEG) Urine Ethyl Alcohol Neg (NEG) Free Thyroxine 2.44 ng/dL (0.76-1.46) Physical Exam HEENT: Neck Supple W Full Motion Chest: Symmetric LUNGS: Clear to Auscultation Heart: S1S2, RRR (SR) Abdomen: Soft N/T Extremities: No Edema, No Calf Tenderness Neurology: alert, oriented, follow commands Assessment Assessment 1. PAFIB with RVR: in the setting of hypokalemia/hypomagnesemia and hyperthyr oidism. converted to SR with amiodarone 2. Hx of Obstructive jaundice with choledocholithiasis: ERCP cancelled due to AFIB RVR 3. Hx of Polysubstance abuse: with methamphetamines and ETOH, reports abstinence for a month 4. Hypertension: controlled 5. Hyperthyrodism: new finding Recommendations 1. No ASA with hyperthyroid issue. Discussed with GI, ERCP to beconsidered as an outpt. Start on eliquis for stroke prevention. Continue metoprolol 2. No amiodarone with current thyroid issue. Will start on alternative, will discuss with primary nonfarm animal caretaker 3. Thyroid US pending 4. Future outpt stress test Justicifation of Admission Dx: Justifications for Admission: Justification of Admission Dx: Yes Respiratory Failure: Mechanical Ventilation PERCY CASTRO MD 11/14/21 0951: CARDIO Progress Notes Plan Plan Late entry for 11/13/2021 Patient seen and examined. Agree with above nurse practitioner note CHERELLE HUTCHINSON APRN November 13, 2021 11:02 PERCY CASTRO MD November 14, 2021 09:51
[2021-11-13] MEDS ORDERED: APIXABAN 5 MG TABLET. PO SCH (12:00)
--- NOTE | 2021-11-13 12:26 | RAD ---
US THYROID History: Reason: Hyperthyroidism / Spl. Instructions: / History: Comparison: None. Technique: Multiple grayscale and color Doppler images of the thyroid gland were obtained. Findings: Right thyroid lobe: 4.7 x 2.0 x 2.5 cm. Heterogeneous echotexture. Left thyroid lobe: 4.7 x 2.0 x 2.0 cm. Heterogeneous echotexture. Isthmus: 0.6 cm. No discrete nodule. IMPRESSION: 1. Enlarged diffusely heterogeneous thyroid, indicating nonspecific thyroiditis. Recommend correlati on with thyroid lab values. Electronically signed by: Kirby Oliva DO (11/13/2021 12:23 PM) [id number]
[2021-11-13] MEDS ORDERED: FLECAINIDE ACETATE 50 MG TABLET. PO SCH (13:00)
[2021-11-13 15:00] VITALS: BP 115/63
--- NOTE | 2021-11-13 15:02 | EKG ---
[facility] [address] [place] [address] Test Date: 2021-11-13 Test Time: 14:56:31 Pat Name: CALISTA PINTO Department: Room: [facility] Gender: F Medical Insurance Claims Specialist: SHIVAM : 1965 Requested By: CHERELLE HUTCHINSON Order Number: [id number] Reading MD: Sundar Campos MD Measurements Intervals Sachse Rate: 72 P: 48 IN: 130 QRS: 21 QRSD: 88 T: 46 QT: 406 QTc: 451 Interpretive Statements SINUS RHYTHM NON-SPECIFIC ST/T CHANGES Electronically Signed On 11-14-2021 15:28:54 CDT by Sundar Campos MD
--- NOTE | 2021-11-13 15:34 | NUR ---
SS following for discharge planning. SS reviewed pt chart and discussed with pt RN. Pt is from home with spouse and is currently on room air. Cardiology following. COVID19 negative. SS will continue to follow for discharge planning.
[2021-11-13] MEDS ORDERED: methIMAzole 10 MG TABLET PO SCH (16:30)
[2021-11-13] MEDS ORDERED: FLEC50TA PO (16:53)
[2021-11-13] MEDS ORDERED: APIX5TAB PO (16:53)
[2021-11-13] MEDS ORDERED: METO50TA6 PO (16:53)
[2021-11-13] MEDS ORDERED: METH10TA32 PO (16:53)
--- NOTE | 2021-11-13 17:03 | PDOC3 ---
Discharge Summary Visit Information Date of Admission: November 12, 2021 Date of Discharge: November 13, 2021 Admitting Diagnosis: Afib with RVR Final Diagnosis Hyperthyroidism, Afib with RVR Brief Hospital Course Allergies Allergies Coded Allergies Type Severity Reaction Last Updated Verified No Known Drug Allergies 11/12/21 No Vital Signs Vital Signs Date Time Temp Pulse Resp B/P (MAP) Pulse Ox O2 Delivery O2 Flow Rate FiO2 11/13/21 15:00 99.2 73 17 115/63 (80) 94 Room Air 99.2 Lab Results Laboratory Tests Test 11/12/21 12:00 11/12/21 14:15 11/12/21 14:35 11/13/21 04:30 POC SARS CoV-2 Antigen Negative (NEGATIVE) White Blood Count 5.3 x10^3/uL (4.0-11.0) 7.8 x10^3/uL (4.0-11.0) Red Blood Count 4.34 x10^6/uL (3.50-5.40) 4.37 x10^6/uL (3.50-5.40) Hemoglobin 12.3 g/dL (12.0-15.5) 12.3 g/dL (12.0-15.5) Hematocrit 36.6 % (36.0-47.0) 36.5 % (36.0-47.0) Mean Corpuscular Volume 84 fL (79-100) 84 fL (79-100) Mean Corpuscular Hemoglobin 28 pg (25-35) 28 pg (25-35) Mean Corpuscular Hemoglobin Concent 34 g/dL (31-37) 34 g/dL (31-37) Red Cell Distribution Width 14.8 % (11.5-14.5) 15.0 % (11.5-14.5) Platelet Count 356 x10^3/uL (140-400) 331 x10^3/uL (140-400) Neutrophils (%) (Auto) 42 % (31-73) Lymphocytes (%) (Auto) 43 % (24-48) Monocytes (%) (Auto) 10 % (0-9) Eosinophils (%) (Auto) 5 % (0-3) Basophils (%) (Auto) 0 % (0-3) Neutrophils # (Auto) 2.2 x10^3/uL (1.8-7.7) Lymphocytes # (Auto) 2.2 x10^3/uL (1.0-4.8) Monocytes # (Auto) 0.5 x10^3/uL (0.0-1.1) Eosinophils # (Auto) 0.3 x10^3/uL (0.0-0.7) Basophils # (Auto) 0.0 x10^3/uL (0.0-0.2) Prothrombin Time 12.9 SEC (11.7-14.0) Prothromb Time International Ratio 1.0 (0.8-1.1) Sodium Level 147 mmol/L (136-145) 146 mmol/L (136-145) Potassium Level 2.4 mmol/L (3.5-5.1) 3.9 mmol/L (3.5-5.1) Chloride Level 111 mmol/L (98-107) 114 mmol/L (98-107) Carbon Dioxide Level 22 mmol/L (21-32) 22 mmol/L (21-32) Anion Gap 14 (6-14) 10 (6-14) Blood Urea Nitrogen 10 mg/dL (7-20) 15 mg/dL (7-20) Creatinine 0.4 mg/dL (0.6-1.0) 0.5 mg/dL (0.6-1.0) Estimated GFR (Cockcroft-Gault) 165.1 127.6 BUN/Creatinine Ratio 25 (6-20) Glucose Level 112 mg/dL (70-99) 127 mg/dL (70-99) Calcium Level 9.4 mg/dL (8.5-10.1) 8.8 mg/dL (8.5-10.1) Magnesium Level 1.5 mg/dL (1.8-2.4) 1.7 mg/dL (1.8-2.4) Total Bilirubin 2.5 mg/dL (0.2-1.0) Aspartate Amino Transf (AST/SGOT) 57 U/L (15-37) Alanine Aminotransferase (ALT/SGPT) 61 U/L (14-59) Alkaline Phosphatase 434 U/L (46-116) Total Protein 6.8 g/dL (6.4-8.2) Albumin 2.9 g/dL (3.4-5.0) Albumin/Globulin Ratio 0.7 (1.0-1.7) Thyroid Stimulating Hormone (TSH) < 0.007 uIU/mL (0.358-3.74) Urine Opiates Screen Neg (NEG) Urine Methadone Screen Neg (NEG) Urine Barbiturates Neg (NEG) Urine Phencyclidine Screen Neg (NEG) Urine Amphetamine/Methamphetamine Neg (NEG) Urine Benzodiazepines Screen Neg (NEG) Urine Cocaine Screen Neg (NEG) Urine Cannabinoids Screen Neg (NEG) Urine Ethyl Alcohol Neg (NEG) Free Thyroxine 2.44 ng/dL (0.76-1.46) Laboratory Tests Test 11/13/21 04:30 White Blood Count 7.8 x10^3/uL (4.0-11.0) Red Blood Count 4.37 x10^6/uL (3.50-5.40) Hemoglobin 12.3 g/dL (12.0-15.5) Hematocrit 36.5 % (36.0-47.0) Mean Corpuscular Volume 84 fL (79-100) Mean Corpuscular Hemoglobin 28 pg (25-35) Mean Corpuscular Hemoglobin Concent 34 g/dL (31-37) Red Cell Distribution Width 15.0 % (11.5-14.5) Platelet Count 331 x10^3/uL (140-400) Sodium Level 146 mmol/L (136-145) Potassium Level 3.9 mmol/L (3.5-5.1) Chloride Level 114 mmol/L (98-107) Carbon Dioxide Level 22 mmol/L (21-32) Anion Gap 10 (6-14) Blood Urea Nitrogen 15 mg/dL (7-20) Creatinine 0.5 mg/dL (0.6-1.0) Estimated GFR (Cockcroft-Gault) 127.6 Glucose Level 127 mg/dL (70-99) Calcium Level 8.8 mg/dL (8.5-10.1) Magnesium Level 1.7 mg/dL (1.8-2.4) Free Thyroxine 2.44 ng/dL (0.76-1.46) Brief Hospital Course Patient is a 53-year-old female with past medical history hypertension, paroxysmal A. fib, who presents as a direct admission from outpatient surgery clinic due to A. fib with RVR. She was having an ERCP today by Dr. Cleaning, when she suddenly went into A. fib with RVR. This was noted on her previous admission and she was told by cardiology to wear Holter monitor and to follow-up on an outpatient basis but she did not. Upon my evaluation she has no complaints. EKG showed irregularly irregular rhythm consistent with her diagnosis of A. fib. Admitted for further medical management 11/13: Complaint of sore throat today heart rate and rhythm better controlled appears to be sinus on telemetry and currently. Potassium was 2.9 replaced improved magnesium also replaced but currently is 1.7 this morning. TSH returned undetectable is pending T4 and T3 and thyroid ultrasound. GI will delay ERCP T4 was elevated and thyroid ultrasound showed no discrete masses started on methimazole 10 mg 3 times daily we will continue this for 1 week and go down to once daily and have follow-up TSH outpatient. Will need cardiology follow-up which is been scheduled outpatient as well started on Eliquis and 50 mg of flecainide twice daily in addition to restarting her 50 mg of metoprolol twice daily which she had run out of prior to her GI procedure. Advised to reschedule outpatient ERCP and will need to hold her Eliquis prior to the procedure for at least 5 days. Consults: Cardiology and gastroenterology Problem list: Afib with RV - historically with afib a month ago. Didn't complete cardiac monitoring outpatient. 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, will verify with T4, T3 and start methimazole therapy after thyroid ultrasound H/o Polysubstance abuse: with methamphetamines and ETOH, reports abstinence for a month Hypertension - BP improved Greater than 30 minutes spent on discharge home with self-care Discharge Information Condition at Discharge: Improved Follow Up: Weeks (1) Disposition/Orders: D/C to Home Scheduled Apixaban (Eliquis) 5 Mg Tablet, 5 MG PO BID for Afib for 30 Days, #60 Ref 5 Prescribed by: VNICE LÓPEZ MD on 11/13/21 1653 Flecainide Acetate (Flecainide Acetate) 50 Mg Tablet, 50 MG PO Q12HR for Afib for 30 Days, #60 Ref 5 Prescribed by: VINCE LÓPEZ MD on 11/13/21 1653 Methimazole (Methimazole) 10 Mg Tablet, 10 MG PO Q8HRS for Hyperthyrodism for 30 Days, #44 Ref 5 Prescribed by: VINCE LÓPEZ MD on 11/13/21 1653 Metoprolol Tartrate (Metoprolol Tartrate) 50 Mg Tablet, 50 MG PO BID for Afib for 30 Days, #60 Ref 5 Prescribed by: VINCE LÓPEZ MD on 11/13/21 1653 Omeprazole (Omeprazole) 40 Mg Capsule.dr, 40 MG PO DAILY for gerd, (Reported) Entered as Reported by: Mary Abdul on 09/19/212009 Last Action: Converted on 11/12/211633 by BIPIN HENRIQUEZ RN Scheduled PRN Acetaminophen (Acetaminophen) 500 Mg Tablet, 1,000 MG PO PRN Q6HRS PRN for PAIN, (Reported) Entered as Reported by: Mary Abdul on 09/19/212010 Last Action: Reviewed on 11/12/211606 by BIPIN HENRIQUEZ RN Discontinued Medications Ibuprofen (Ibuprofen) 800 Mg Tablet, 800 MG PO PRN Q6HRS PRN for INFLAMMATION, (Reported) Entered as Reported by: Mary Abdul on 09/19/212011 Last Action: Reviewed on 11/12/211606 by BIPIN HENRIQUEZ RN Justicifation of Admission Dx: Justifications for Admission: Justification of Admission Dx: Yes Respiratory Failure: Mechanical Ventilation VINCE LÓPEZ MD November 13, 2021 17:03
== END 2021-11-13 17:30 | disposition home or self-care (01) | DRG 644 ==
LOC: ENDOS 11:51 → 6 SOUTH 14:45
PROVIDERS: ADMIT Family Medicine; ATTEND Family Medicine
DX: E05.90 Thyrotoxicosis, unspecified without thyrotoxic crisis or storm (principal); K80.51 Calculus of bile duct without cholangitis or cholecystitis with obstruction; I48.0 Paroxysmal atrial fibrillation; E03.9 Hypothyroidism, unspecified; E06.3 Autoimmune thyroiditis; E83.42 Hypomagnesemia; E87.6 Hypokalemia; F17.210 Nicotine dependence, cigarettes, uncomplicated; I10 Essential (primary) hypertension; Z83.3 Family history of diabetes mellitus; F10.10 Alcohol abuse, uncomplicated; K21.9 Gastro-esophageal reflux disease without esophagitis; Z20.822 Contact with and (suspected) exposure to COVID-19
CPT/HCPCS: 36415; 43260; 76536; 80048; 80053; 80307; 83735; 84439; 84443; 84480; 85025; 85027; 85610; 93005; J0282; J0330; J0690; J1644; J1650; J2405; J2704; J3475; J3490; J7060; Q9967; G0378